=== PATIENT | male | born 1930 | race Caucasian/White ===

== ENCOUNTER 2016-10-19 12:31 | Inpatient (IN) | payer OTHER ==
--- NOTE | 2016-10-19 12:37 | PDOC ---
History of Present Illness - General Chief Complaint: SIRS, Suspected/Possible Stated Complaint: FEVER Time Seen by Provider: 10/19/16 12:36 History Source: Patient, Family, Old Records Exam Limitations: Dementia - History of Present Illness Initial Comments: 10/19/16 12:53 86-year-old male with a history of dementia, hypertension and coronary artery disease who is recently being treated for urinary tract infection since last presents the emergency department by EMS with shaking chills and fever at home. The patient's stated that he is also had generalized weakness and this morning he was unable to get himself up from the toilet. The patient saw his regular doctor last week and was treated for a UTI with Ciprohe has not missed any doses and was in his usual state of health until this morning. The patient's also notes that he appears agitated/altered mentally as compared to his baseline. Past History - Past Medical History Allergies/Adverse Reactions: Allergies Allergy/AdvReac Type Severity Reaction Status Date / Time No Known Allergies Allergy Verified 10/19/16 12:34 Home Medications: Ambulatory Orders Cholecalciferol (Vitamin D3) [Vitamin D-3] 1,000 unit PO DAILY 11/14/15 L.acidoph,Paracasei, B.lactis [Probiotic] 1 each PO DAILY 11/14/15 [place]-3 Fatty Acids [[place]-3] 1,000 mg PO DAILY 11/14/15 Alpha Lipoic Acid 600 mg PO DAILY capsule 05/12/16 Aspirin [Aspir 81] 81 mg PO DAILY 05/12/16 Atorvastatin Calcium 5 mg PO DAILY tablet 05/12/16 Metoprolol Succinate 25 mg PO DAILY 05/12/16 Dementia: Yes ([place]) HTN: Yes - Surgical History Cholecystectomy: Yes - Immunization History Immunization Up to Date: Yes - Psycho/Social/Smoking Cessation Hx Anxiety: No Suicidal Ideation: No Smoking History: Former smoker Have you smoked in the past 12 months: No If you are a former smoker, when did you quit?: 40 YEARS Hx Alcohol Use: Yes (DAILY) Drug/Substance Use Hx: No Hx Substance Use Treatment: No Review of Systems - Review of Systems Able to Perform ROS?: Yes Is the patient limited Swedish proficient: No Constitutional: Yes: Chills HEENTM: No: Symptoms Reported Respiratory: No: Symptoms reported Cardiac (ROS): No: Symptoms Reported ABD/GI: No: Symptoms Reported : Yes: See HPI Musculoskeletal: No: Symptoms Reported Integumentary: No: Symptoms Reported *Physical Exam - Physical Exam Comments: 10/19/16 12:55 GENERAL: Well developed, well nourished. Awake and alert. No acute distress. HEENT: Normocephalic, atraumatic. PERRLA, EOMI. No conjunctival pallor. Sclera are non- icteric. Moist mucous membranes. Oropharynx is clear. NECK: Supple. Full ROM. No JVD. No lymphadenopathy. CARDIOVASCULAR: Tachycardic, Regular rate and rhythm. No murmurs, rubs, or gallops. Distal pulses are 2+ and symmetric. PULMONARY: No evidence of respiratory distress. Lungs clear to auscultation bilaterally. No wheezing, rales or rhonchi. ABDOMINAL: Soft. Non-tender. Non-distended. No rebound or guarding. No organomegaly. Normoactive bowel sounds. MUSCULOSKELETAL Normal range of motion at all joints. No bony deformities or tenderness. No CVA tenderness. EXTREMITIES: No cyanosis. No clubbing. No edema. No calf tenderness. SKIN: Warm and dry. Normal capillary refill. No rashes. No jaundice. NEUROLOGICAL: Alert, awake but agitated. Cranial nerves 2-12 intact. Grossly non-focal exam. PSYCHIATRIC: Cooperative. Good eye contact. Appropriate mood and affect. ED Treatment Course - LABORATORY CBC & Chemistry Diagram: 10/19/16 12:35 10/19/16 12:35 Medical Decision Making - Medical Decision Making 10/19/16 12:56 86-year-old male with hypertension and dementia who presents to the emergency department with fever, chills and altered mental status; he is recently being treated for urinary tract infection with Cipro. Differential diagnosis includes but is not limited to: Sepsis, UTI, pneumonia, dehydration, electrolyte abnormality, toxic/metabolic derangement. Plan: 1. Mueller culture 2. Labs and urine analysis 3. IV fluids for hydration 4. Acetaminophen for fever 5. IV antibiotics 6. Admit 7. Observe and reevaluate 10/19/16 14:18 Addendum: The labs were reviewed and are noted in the EMR. The WBC is 15.1k and the lactate is 3.3. CXR shows atelectasis vs infiultrate at the left lung base and u/a has +LE and WBC's. I have discussed the case with the patient's PCP. The plan is to transfer the patient to [facility] for ICU admission. *DC/Admit/Observation/Transfer Diagnosis at time of Disposition: Sepsis, UTI (urinary tract infection) - Discharge Dispostion Disposition: TRANSFER ACUTE CARE/OTHER HOSP Condition at time of disposition: Good Admit: Yes - Referrals Referrals: Ralph Morley MD [Primary Care Provider] -
[2016-10-19] MEDS ORDERED: SODIUM CHLORIDE 2,000 ML IV STA (12:38)
[2016-10-19] MEDS ORDERED: VANCOMYCIN 1,000 MG in DEXTROSE 5%-WATER - 250 ML IVPB ONE (12:38)
[2016-10-19] MEDS ORDERED: PIPERACILLIN/TAZOB 3.375 GM/50 ML PRE-DOCKED IV ONE (12:38)
[2016-10-19] MEDS ORDERED: ACETAMINOPHEN 1000 MG/100 ML VIAL (NON FORMULARY) IVPB ONE (12:39)
[2016-10-19 12:44] VITALS: BMI 27.3
[2016-10-19] MEDS ORDERED: PIPERACILLIN/TAZOBACTAM 3.375 GM VIAL IVPB ONE (13:04)
[2016-10-19] MEDS ORDERED: VANCOMYCIN 1,000 MG VIAL (RESTRICTED TO ID ONLY) ONE (13:05)
[2016-10-19] MEDS ORDERED: ACETAMINOPHEN INJECTION 100 ML IVPB ONE (13:05)
[2016-10-19 13:06] LABS: URINE APPEARANCE Clear; URINE BILIRUBIN Negative (NEGATIVE); URINE BLOOD Trace-intact (NEGATIVE); URINE GLUCOSE (UA) Negative (NEGATIVE); URINE KETONE Negative (NEGATIVE); URINE NITRITE Negative (NEGATIVE); URINE PROTEIN Trace (NEGATIVE); URINE UROBILINOGEN 0.2 E.U/dl (0.2-1.0)
[2016-10-19 13:08] LABS: MCH 26.6 pg (25.7-33.7); MCHC 33.1 g/dl (32.0-35.9); MEAN CELL VOLUME 80.6 fl (80-96); MEAN PLT VOLUME 8.9 fl (7.5-11.1); PLATELET COUNT 337 K/MM3 (134-434); RDW 14.4 % (11.9-15.9); WHITE BLOOD COUNT 15.1 K/mm3 (4.0-10.0)
[2016-10-19 13:25] LABS: ALBUMIN 3.4 g/dl (3.5-5.0); BILIRUBIN,TOTAL 0.7 mg/dl (0.2-1.0); CALCIUM 9.2 mg/dl (8.4-10.2); CREATININE 1.5 mg/dl (0.6-1.3); MAGNESIUM 1.6 mg/dL (1.8-2.4); PHOSPHOROUS 2.7 mg/dl (2.5-4.6); TOT PROT 6.7 g/dl (6.4-8.3)
[2016-10-19 13:41] LABS: URINE COLOR YELLOW; URINE LEUK ESTERASE 1+ (NEGATIVE); URINE WBC 20-30 (3-5)
[2016-10-19 13:49] LABS: TROPONIN I (DFP) 0.03 ng/ml (0.03-0.50)
[2016-10-19] MEDS ORDERED: SODIUM CHLORIDE 1,000 ML IV STA (14:14)
--- NOTE | 2016-10-19 17:10 | HOSP ---
Physical Examination Vital Signs: Vital Signs Temperature 99.9 F H 10/19/16 16:37 Pulse Rate 119 H 10/19/16 16:37 Respiratory Rate 17 10/19/16 16:37 Blood Pressure 151/56 10/19/16 16:37 O2 Sat by Pulse Oximetry (%) 95 10/19/16 15:27 Labs: CBC, BMP 10/19/16 12:35 10/19/16 12:35 Hospitalist Encounter Assessment: pt was presented for admission due to sepsis. Pt was treated with IVF, vanc and zosyn in [place] ED. Is awaiting transfer from [place] ED to ICU at [facility]. As I am the designated code leader for today I cannot go to [place] to evaluated patient and no one else from [facility] is available to see pt before night staff arrives at 7pm, will order IVF and place ID consult for abx approval. On review of chart most recent vitals show stable blood pressure.
[2016-10-19] MEDS ORDERED: SODIUM CHLORIDE 1,000 ML IV SCH (17:15)
--- NOTE | 2016-10-19 17:59 | EKG ---
Test Reason : Blood Pressure : / mmHG Vent. Rate : 125 BPM Atrial Rate : 125 BPM P-R Int : 156 ms QRS Dur : 080 ms QT Int : 290 ms P-R-T Axes : 059 -07 119 degrees QTc Int : 418 ms SINUS TACHYCARDIA WITH PREMATURE SUPRAVENTRICULAR COMPLEXES AND WITH OCCASIONAL PREMATURE VENTRICULAR COMPLEXES NO PREVIOUS ECGS AVAILABLE Confirmed by MD DWYER MARJORY ([id number]) on 10/19/2016 5:59:06 PM Referred By: MAHENDRA FRAGOSO Confirmed By:TEJA DWYER MD
[2016-10-19] MEDS ORDERED: PIPERACILLIN/TAZOBACTAM 4.5 GM VIAL IVPB STA (19:07)
[2016-10-19] MEDS ORDERED: ACETAMINOPHEN 325 MG TABLET (FP) PO PRN (19:07)
[2016-10-19 20:18] LABS: ARTERIAL BLD GAS O2 SATURATION 95.6 % (90-98.9); ARTERIAL BLOOD GAS PO2 75.6 mmHg (68-100); ARTERIAL BLOOD GAS pH 7.45 (7.35-7.45)
[2016-10-19 20:19] LABS: ALLENS TEST POSITIVE; ART PUNCT SITE RIGHT RADIAL
[2016-10-19 20:20] LABS: LPM/O2% 21%; PT. ON O2? NO; TYPE OF O2 ROOM AIR
--- NOTE | 2016-10-19 20:27 | CONSULT ---
Consult Consult Specialty:: Pulm/CC - History of Present Illness History of Present Illness: Pt is an 86yr old man with PMHx of HTN, [place] s/p cardiac stent x2, dementia, urinary retention and current UTI. He presents to the [place] ER from home with CC of chills, subjective fever and AMS. Of note pt was being treated with cipro since 10/15 for UTI as an outpatient. In the ER pt's initial vitals signs were 124/67, HR 129, 93% o2 and 103.8 temp. WBC 15.1, BUN/Cr 26/1.5, Mag 1.6 + UA. Pt given IV Tylenol, Vanc/Zosyn and 2L NS, transferred to [facility] and admitted to the ICU for further management. Per report pt increasingly agitated and given haldol/ativan. Upon assessment pt is sedated. 92/69, HR irregular 100-120s , 94%. - History Source History Provided By: Medical Record Limitations to Obtaining History: Clinical Condition - Past Medical History Cardio/Vascular: Yes: HTN Renal/: Yes: BPH - Past Surgical History Past Surgical History: Yes: Cholecystectomy - Alcohol/Substance Use Hx Alcohol Use: Yes (DAILY) - Smoking History Smoking history: Former smoker Have you smoked in the past 12 months: No If you are a former smoker, when did you quit?: 40 YEARS Home Medications - Allergies Allergies/Adverse Reactions: Allergies Allergy/AdvReac Type Severity Reaction Status Date / Time No Known Allergies Allergy Verified 10/19/16 12:34 - Home Medications Home Medications: Ambulatory Orders Cholecalciferol (Vitamin D3) [Vitamin D-3] 1,000 unit PO DAILY 11/14/15 L.acidoph,Paracasei, B.lactis [Probiotic] 1 each PO DAILY 11/14/15 [place]-3 Fatty Acids [[place]-3] 1,000 mg PO DAILY 11/14/15 Alpha Lipoic Acid 600 mg PO DAILY capsule 05/12/16 Aspirin [Aspir 81] 81 mg PO DAILY 05/12/16 Atorvastatin Calcium 5 mg PO DAILY tablet 05/12/16 Metoprolol Succinate 25 mg PO DAILY 05/12/16 Family Disease History - Family Disease History Family History: Unable to Obtain (pt sedated) Review of Systems Unable to obtain ROS, reason: LIDIA Physical Exam Vital Signs: Vital Signs Period Temp Pulse Resp BP Sys/Yun Pulse Ox Last 24 Hr 99.9 F-103.8 F 103-129 17-20 95-151/56-69 93-96 Intake & Output 10/16/16 10/17/16 10/18/16 10/19/16 23:59 23:59 23:59 23:59 Intake Total 4200 Balance 4200 Weight 180 lb Constitutional: Yes: Well Nourished Eyes: Yes: Other (pupils miotic but reactive to light. left iris multicolored) HENT: Yes: Atraumatic Cardiovascular: Yes: Tachycardia (100-120s), Pulse Irregular Respiratory: Yes: Other (limited exam due to endy/sedation, no adventitious breath sounds appreciated anteriorly) Gastrointestinal: Yes: Normal Bowel Sounds, Soft, Abdomen, Obese, Tenderness ( diffuse based on wincing) ...Rectal Exam: Yes: Deferred Renal/: Yes: Massey Present (yellow output) Edema: No Peripheral Pulses WNL: (+1 left pedal, weak rt pedal) Integumentary: Yes: Other (RLE dressing c/d/i) Neurological: Yes: Other (sedated) Labs: Abnormal Lab Results 10/19/16 10/19/16 10/19/16 12:35 12:35 12:35 WBC 15.1 H D Neutrophils % 88.0 H D Lymphocytes % 1.0 L D Monocytes % 1.0 L D ABG pCO2 at Pt Temp ABG HCO3 ABG Base Excess Chloride 108 H Carbon Dioxide 20 L D BUN 26 H Creatinine 1.5 H Random Glucose 124 H D Lactic Acid 3.391 H* Magnesium 1.6 L Albumin 3.4 L Ur Leukocyte Esterase 10/19/16 10/19/16 13:00 19:07 WBC Neutrophils % Lymphocytes % Monocytes % ABG pCO2 at Pt Temp 22.2 L ABG HCO3 15.0 L ABG Base Excess -7.0 L Chloride Carbon Dioxide BUN Creatinine Random Glucose Lactic Acid Magnesium Albumin Ur Leukocyte Esterase 1+ H D Assessment/Plan Pt is an 86yr old man with PMHx of HTN, CAD, dementia and current UTI. Now in the ICU for urosepsis with associated urinary retention complicated by phimosis. Pulm: -O2 support prn for sat >94% -Nebulizers prn -Incentive spirometer as tolerated ID: -f/u cultures -Consult -Ceftriaxone started -f/u lactic acid Renal: -Urology following -Replete electrolytes prn -f/u renal ultrasound -f/u urine electrolytes/creatinine Cardiac -f/u enzymes -Rate control -Statin -asa/plavix per primary/cards Neuro -Pain management Prophylactic -DVT
--- NOTE | 2016-10-19 20:30 | CON.GU ---
Consult - History of Present Illness History of Present Illness: asked to see this 86 yo male emergently in consultation. Transferred from [place] with sepsis and urinary retention. Arce could not be placed. No prior urologic history per chart - Past Medical History Cardio/Vascular: Yes: HTN Renal/: Yes: BPH - Past Surgical History Past Surgical History: Yes: Cholecystectomy - Alcohol/Substance Use Hx Alcohol Use: Yes (DAILY) - Smoking History Smoking history: Former smoker Have you smoked in the past 12 months: No If you are a former smoker, when did you quit?: 40 YEARS Home Medications - Allergies Allergies/Adverse Reactions: Allergies Allergy/AdvReac Type Severity Reaction Status Date / Time No Known Allergies Allergy Verified 10/19/16 12:34 - Home Medications Home Medications: Ambulatory Orders Cholecalciferol (Vitamin D3) [Vitamin D-3] 1,000 unit PO DAILY 11/14/15 L.acidoph,Paracasei, B.lactis [Probiotic] 1 each PO DAILY 11/14/15 [place]-3 Fatty Acids [[place]-3] 1,000 mg PO DAILY 11/14/15 Alpha Lipoic Acid 600 mg PO DAILY capsule 05/12/16 Aspirin [Aspir 81] 81 mg PO DAILY 05/12/16 Atorvastatin Calcium 5 mg PO DAILY tablet 05/12/16 Metoprolol Succinate 25 mg PO DAILY 05/12/16 Physical Exam- Vital Signs: Vital Signs Temperature 99.9 F H 10/19/16 16:37 Pulse Rate 119 H 10/19/16 16:37 Respiratory Rate 17 10/19/16 16:37 Blood Pressure 151/56 10/19/16 16:37 O2 Sat by Pulse Oximetry (%) 95 10/19/16 15:27 Renal/: Yes: Bladder Distention (tight phimosis) Problem List - Problems (1) Urinary retention Assessment/Plan: Phimosis stretched at bedside with clamp, subsequently 14 fr arce inserted, large amount of grossly clear urine retrieved. cont arce to SD until pt medically stable. will need formal circumcision electively Code(s): R33.9 - RETENTION OF URINE, UNSPECIFIED
[2016-10-19] MEDS ORDERED: LORAZEPAM CARPU-JECT 2 MG/ML DISP.SYRIN IVPUSH ONE ×2 (20:35→22:51)
[2016-10-19] MEDS ORDERED: HALOPERIDOL LACTATE 5 MG/ML IM ONE ×2 (20:35→22:52)
[2016-10-19] MEDS ORDERED: PIPERACILLIN/TAZOB 3.375 GM/50 ML PRE-DOCKED IVPB SCH (21:00)
--- NOTE | 2016-10-19 21:16 | PN ---
<Galo Barnett - Last Filed: 10/19/16 21:15> Teaching Attending Note Name of Resident: Isela Meade ATTENDING PHYSICIAN STATEMENT I saw and evaluated the patient. I reviewed the resident's note and discussed the case with the resident. I agree with the resident's findings and plan as documented. SUBJECTIVE: OBJECTIVE: ASSESSMENT AND PLAN: <LyssaXavier - Last Filed: 10/19/16 21:21> Teaching Attending Note ATTENDING PHYSICIAN STATEMENT I saw and evaluated the patient. I reviewed the resident's note and discussed the case with the resident. I agree with the resident's findings and plan as documented. SUBJECTIVE: Patient is an 86-year-old male, accompanied by family, with a past medical history of dementia, hypertension, PA (s/p 2 stents, on DAPT) who presented to the emergency department by EMS for further evaluation of fevers, chills, rigors , shortness of breath, and AMS since this morning. Yesterday evening patient was at baseline and had dinner with grandson. This morning patient was noted to be having shakes and chills and fever was measured to be Tmax 103F. Patient not able to communicate reliably regarding symptoms. Per family, patient did not exhibit any signs of infection no runny nose, cough, sputum, foul urine, or rashes. Patient does have history of urinary retention and a prior admission for urosepsis. The patient saw his regular doctor , received an ECHO, and was treated for a UTI with Ciprohe has not missed any doses and was in his usual state of health until this morning. At baseline patient is calm, recognizes close family, and is able to go to the bathroom and shower on his own. Family reported associated generalized weakness and noted the patient was unable to get up without assistance before patients called 911. CARDIO: Dr. Jessie Ward PCP: Dr. Ralph Morley OBJECTIVE: Vital Signs: Last Vital Signs Temp Pulse Resp BP Pulse Ox 99.9 F H 119 H 17 151/56 95 10/19/16 16:37 10/19/16 16:37 10/19/16 16:37 10/19/16 16:37 10/19/16 15:27 GENERAL: (+) Mildly sedated after receiving Haldol and Ativan for agg. no acute distress HEENT: Atraumatic. PERRLA, EOMI. Moist mucosa. No JVD LUNGS: No distress, speaks full sentences, clear to auscultation bilaterally HEART: Regular rate and rhythm, normal S1 and S2, no murmurs, rubs or gallops, peripheral pulses normal and equal bilaterally. ABDOMEN: Soft, nontender, normoactive bowel sounds. No guarding, no rebound. No masses EXTREMITIES: Normal inspection, Normal range of motion, no edema. No clubbing or cyanosis. NEUROLOGICAL: (+) Oriented to self not place or time. Pleasant. Cranial nerves II through XII grossly intact. Normal speech, no focal sensorimotor deficits SKIN: Warm, Dry, normal turgor, no rashes or lesions noted. Labs: CBCD WBC 15.1 K/mm3 (4.0-10.0) H D 10/19/16 12:35 RBC 4.96 M/mm3 (4.00-5.60) 10/19/16 12:35 Hgb 13.2 GM/dl (11.7-16.9) 10/19/16 12:35 Hct 39.9 % (35.4-49) 10/19/16 12:35 MCV 80.6 fl (80-96) 10/19/16 12:35 MCHC 33.1 g/dl (32.0-35.9) 10/19/16 12:35 RDW 14.4 % (11.9-15.9) 10/19/16 12:35 Plt Count 337 K/MM3 (134-434) 10/19/16 12:35 MPV 8.9 fl (7.5-11.1) 10/19/16 12:35 CMP Sodium 136 mmol/L (136-145) 10/19/16 12:35 Potassium 3.8 mmol/L (3.5-5.1) 10/19/16 12:35 Chloride 108 mmol/L (98-107) H 10/19/16 12:35 Carbon Dioxide 20 mmol/L (22-28) L D 10/19/16 12:35 Anion Gap 8 (8-16) 10/19/16 12:35 BUN 26 mg/dl (7-18) H 10/19/16 12:35 Creatinine 1.5 mg/dl (0.6-1.3) H 10/19/16 12:35 Creat Clearance w eGFR 44.48 (>60) 10/19/16 12:35 Calcium 9.2 mg/dl (8.4-10.2) 10/19/16 12:35 Total Bilirubin 0.7 mg/dl (0.2-1.0) D 10/19/16 12:35 AST 38 U/L (10-42) D 10/19/16 12:35 ALT 16 U/L (10-40) 10/19/16 12:35 Alkaline Phosphatase 77 U/L (32-92) 10/19/16 12:35 Total Protein 6.7 g/dl (6.4-8.3) 10/19/16 12:35 Albumin 3.4 g/dl (3.5-5.0) L 10/19/16 12:35 Imaging: Chest X-ray Impression: Slightly enlarged heart although study is AP. Possible small effusion bilaterally. ASSESSMENT AND PLAN: Patient is an 86-year-old male, accompanied by family, with a past medical history of dementia, hypertension, PA (s/p 2 stents, on DAPT) who presented to the emergency department with fevers found to have white count of 15, lactate of 3.391, urinary retention, urinalysis with pyuria. Presentations is consisted with sepsis secondary to UTI. He has had a arce placed by urology. He was given vancomycin, zosyn in ED. Will cont zosyn. Follow up blood and urine cultures. Will give IVF. Admit to ICU. Documentation prepared by Xavier Omalley, acting as medical educator for Dr. Galo Womack MD.
[2016-10-19 21:35] LABS: BASOPHIL 0.3 % (0-2.0); MCH 25.9 pg (25.7-33.7); MCHC 31.8 g/dl (32.0-35.9); MEAN CELL VOLUME 81.5 fl (80-96); MEAN PLT VOLUME 8.4 fl (7.5-11.1); PLATELET COUNT 284 K/MM3 (134-434); RDW 15.1 % (11.9-15.9); WHITE BLOOD COUNT 23.4 K/mm3 (4.0-10.0)
[2016-10-19 21:52] LABS: INR 1.23 (0.82-1.09); PROTHROMBIN TIME (PATIENT) 13.6 SEC (9.98-11.88)
[2016-10-19] MEDS: MUPIROCIN 2% TOPICAL OINTMENT FOR DECOLONIZATION NS SCH (21:55)
[2016-10-19] MEDS: HEPARIN NA (PORCINE) 5,000 UNITS/ML 1ML VIAL SQ SCH (21:55)
[2016-10-19] MEDS ORDERED: CEFTRIAXONE 50 ML IVPB SCH (22:00)
[2016-10-19] MEDS ORDERED: CHLORHEXIDINE GLUCONATE 4% CLEANSER FOR DECOLONIZATION TP SCH (22:00)
[2016-10-19 22:09] LABS: MAGNESIUM 1.6 mg/dL (1.8-2.4); PHOSPHOROUS 2.6 mg/dL (2.5-4.9)
[2016-10-19 22:13] LABS: ALBUMIN 2.9 g/dl (3.4-5.0); BILIRUBIN,TOTAL 0.4 mg/dL (0.2-1.0); CALCIUM 8.3 mg/dL (8.5-10.1); CREATININE 1.5 mg/dL (0.7-1.3)
[2016-10-19 22:27] LABS: TROPONIN I 0.43 ng/ml (0.00-0.05)
[2016-10-19] MEDS ORDERED: MAGNESIUM SULF 50% (8.12 MEQ/2 ML-1 GM VIAL) IVPB ONE (22:46)
[2016-10-19] MEDS ORDERED: morphine CARPU-JECT 2 MG/1 ML DISP.SYRIN IVPUSH PRN (22:58)
--- NOTE | 2016-10-19 23:45 | HP ---
CHIEF COMPLAINT: Fever with chills and rigors PCP: Dr Peyman Ward HISTORY OF PRESENT ILLNESS: History obtained from patients and grand daughter Patient is a 86-year-old male was sent from [facility] ED for an admission in the ICU with the diagnosis of Urosepsis. As per the patients grand daughter, patient had a fever of 103F x 1 day associated with chills and rigors. Patient was more confused and agitated than his baseline. Hence he was brought to [facility] ED. Patient was recently seen by his PCP and was diagnosed to have Urinary tract Infection and was taking Ciprofloxacin x 3 days. Patients says that he was compliant with the medication. states that he has been having difficulty in urination lately, has to strain to urinate and normally takes around 20minutes and has to sit in the toilet to urinate. 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 Bladder Ultrasound at bed side showed 800mls of urine. Dr. Mccloud was informed and he put the arce at bed side in the ICU. Grand daughter mentions that patient had an MS last year and was treated in [facility]. He got very agitated overnight during that admission, requiring 3 security and Haloperidol IM. Patient got more delirious with haloperidol and had to be admitted in the hospital for a week due to delirium. Patient lives with his . At his baseline, he does daily activities on his own, requires help on/off but needs 24 hours supervision. Gets confused and agitated when his family members are not around. Bowel habit normal. Sleep normal. Appetite decreased since a week. Patient recently had an echo as outpatient in [facility] but cannot find the report. In the ICU, patient was very agitated, confused, not following commands, passed stool in the bed and on the floor. Had to give 2mg IV Ativan and 5 mg of Haloperidol to calm him down. ER course was notable for: (1) Fever 101 F; Tachycardic 112 bpm; Leukocytosis 15.1; creatinine 1.5/GFR 44.48; Magnesium 1.6, lactic acid 3.3 (2) EKG: unchanged from prior study (3) IV NS 2L; IV Tylenol; IV Vancomycin; IV Zosyn Recent Travel: None PAST MEDICAL HISTORY: Dementia, Hypertension and coronary artery disease; MS ( one year ago s/p 2 stents); BPH; s/p cholecystectomy PAST SURGICAL HISTORY: As mentioned above Social History: Smoking: Quit 43 years ago Alcohol: Occasional Drugs: Denies Family History: Unknown Allergies No Known Allergies Allergy (Verified 10/19/16 12:34) HOME MEDICATIONS: Home Medications Medication Instructions Recorded Cholecalciferol (Vitamin D3) 1,000 unit PO DAILY 11/14/15 [Vitamin D-3] L.acidoph,Paracasei, B.lactis 1 each PO DAILY 11/14/15 [Probiotic] [place]-3 Fatty Acids [[place]-3] 1,000 mg PO DAILY 11/14/15 Alpha Lipoic Acid 600 mg PO DAILY capsule 05/12/16 Aspirin [Aspir 81] 81 mg PO DAILY 05/12/16 Atorvastatin Calcium 5 mg PO DAILY tablet 05/12/16 Metoprolol Succinate 25 mg PO DAILY 05/12/16 REVIEW OF SYSTEMS CONSTITUTIONAL: Present: Fever, chills, rigors Absent: Diaphoresis, generalized weakness, malaise, loss of appetite, weight change HEENT: Absent: rhinorrhea, nasal congestion, throat pain, throat swelling, difficulty swallowing, mouth swelling, ear pain, eye pain, visual changes CARDIOVASCULAR: Absent: chest pain, syncope, palpitations, irregular heart rate, lightheadedness , peripheral edema RESPIRATORY: Absent: cough, shortness of breath, dyspnea with exertion, orthopnea, wheezing, stridor, hemoptysis GASTROINTESTINAL: Absent: abdominal pain, abdominal distension, nausea, vomiting, diarrhea, constipation, melena, hematochezia GENITOURINARY: Present: hesitancy Absent: dysuria, frequency, urgency, , hematuria, flank pain, genital pain MUSCULOSKELETAL: Absent: myalgia, arthralgia, joint swelling, back pain, neck pain SKIN: Absent: rash, itching, pallor HEMATOLOGIC/IMMUNOLOGIC: Absent: easy bleeding, easy bruising, lymphadenopathy, frequent infections ENDOCRINE: Absent: unexplained weight gain, unexplained weight loss, heat intolerance, cold intolerance NEUROLOGIC: Present: Agitated, confused Absent: headache, focal weakness or paresthesias, dizziness, unsteady gait, seizure, mental status changes, bladder or bowel incontinence PSYCHIATRIC: Absent: anxiety, depression, suicidal or homicidal ideation, hallucinations. PHYSICAL EXAMINATION GENERAL: Elderly male, confused, agitated, Awake, alert, in no acute distress. HEAD: Normal with no signs of trauma. EYES: EOM intact, no pallor or icterus EARS, NOSE, THROAT: Ears normal. Moist mucous membranes. NECK: Supple LUNGS: Breath sounds equal, clear to auscultation bilaterally. No wheezes, and no crackles. No accessory muscle use. HEART: Regular rate and rhythm, normal S1 and S2 without murmur, rub or gallop. ABDOMEN: Soft, nontender, not distended, normoactive bowel sounds, no guarding, no rebound, no masses. No hepatomegaly or splenomegaly. MUSCULOSKELETAL: Normal range of motion at all joints. No bony deformities or tenderness. No CVA tenderness. UPPER EXTREMITIES: 2+ pulses, warm, well-perfused. No cyanosis. No clubbing. No peripheral edema. LOWER EXTREMITIES: 2+ pulses, warm, well-perfused. No calf tenderness. No peripheral edema. NEUROLOGICAL: Cranial nerves II-XII intact. Normal speech. Normal gait, confused, agitated, not following commands Genitalis: small urethral opening, arce catheter in place PSYCHIATRIC: Uncooperative. Poor eye contact. SKIN: Warm, dry, normal turgor, no rashes or lesions noted, normal capillary refill. Laboratory Results - last 24 hr 10/19/16 10/19/16 10/19/16 19:07 21:15 21:15 WBC 23.4 H D RBC 4.42 Hgb 11.5 L Hct 36.0 MCV 81.5 MCHC 31.8 L RDW 15.1 D Plt Count 284 D MPV 8.4 D Neutrophils % 94.0 H D Lymphocytes % 2.1 L D Monocytes % 3.6 L Eosinophils % 0.0 D Basophils % 0.3 INR 1.23 H PTT (Actin FS) 31.0 Puncture Site Right radial ABG pH 7.45 ABG pCO2 at Pt Temp 22.2 L ABG pO2 at Pt Temp 75.6 ABG HCO3 15.0 L ABG O2 Sat (Measured) 95.6 ABG O2 Content 17.1 ABG Base Excess -7.0 L Jonh Test Positive O2 Delivery Device Room air Oxygen Flow Rate 21% PEEP 0.0 Sodium Potassium Chloride Carbon Dioxide Anion Gap BUN Creatinine Creat Clearance w eGFR Random Glucose Lactic Acid Calcium Phosphorus Magnesium Total Bilirubin AST ALT Alkaline Phosphatase Creatine Kinase Creatine Kinase Index CK-MB (CK-2) CK-MB (CK-2) Rel Index Troponin I Total Protein Albumin 10/19/16 10/19/16 10/19/16 21:15 21:15 21:15 WBC RBC Hgb Hct MCV MCHC RDW Plt Count MPV Neutrophils % Lymphocytes % Monocytes % Eosinophils % Basophils % INR PTT (Actin FS) Puncture Site ABG pH ABG pCO2 at Pt Temp ABG pO2 at Pt Temp ABG HCO3 ABG O2 Sat (Measured) ABG O2 Content ABG Base Excess Jonh Test O2 Delivery Device Oxygen Flow Rate PEEP Sodium 145 Potassium 3.6 Chloride 113 H Carbon Dioxide 22 Anion Gap 10 BUN 21 H D Creatinine 1.5 H D Creat Clearance w eGFR 44.48 Random Glucose 108 H Lactic Acid 2.556 H* Calcium 8.3 L Phosphorus Magnesium Total Bilirubin 0.4 AST 22 D ALT 39 D Alkaline Phosphatase 72 D Creatine Kinase 1319 H Creatine Kinase Index 0.7 CK-MB (CK-2) 8.599 H CK-MB (CK-2) Rel Index Troponin I 0.43 H Total Protein 6.0 L Albumin 2.9 L D 10/19/16 10/19/16 21:15 21:15 WBC RBC Hgb Hct MCV MCHC RDW Plt Count MPV Neutrophils % Lymphocytes % Monocytes % Eosinophils % Basophils % INR PTT (Actin FS) Puncture Site ABG pH ABG pCO2 at Pt Temp ABG pO2 at Pt Temp ABG HCO3 ABG O2 Sat (Measured) ABG O2 Content ABG Base Excess Jonh Test O2 Delivery Device Oxygen Flow Rate PEEP Sodium Potassium Chloride Carbon Dioxide Anion Gap BUN Creatinine Creat Clearance w eGFR Random Glucose Lactic Acid Calcium Phosphorus 2.6 Magnesium 1.6 L Total Bilirubin AST ALT Alkaline Phosphatase Creatine Kinase Creatine Kinase Index CK-MB (CK-2) CK-MB (CK-2) Rel Index Cancelled Troponin I Total Protein Albumin ASSESSMENT/PLAN: Patient is a 86-year-old male with past medical history of Dementia, Hypertension and coronary artery disease; MS (one year ago s/p 2 stents); BPH; s /p cholecystectomy was sent from [facility] ([facility] ED for an admission in the ICU with the diagnosis of Urosepsis. # Sepsis secondary to UTI Patient presented with Fever (103F) associated with chills and rigors. Recently diagnosed with UTI, on ciprofloxacin x 3 days, compliant with medication On arrival, patient had Fever 101 F; Tachycardic 112 bpm; Leukocytosis 15.1; Lactic acid 3.3; Magnesium 1.6 EKG: unchanged from prior study In the ED, patient received IV NS 2L; IV Tylenol; IV Vancomycin; IV Zosyn Admitted in the ICU Trend lactic acid 3.3---->1.9-----> 2.5----> pending IV NS @ 100mls/hr IV Ceftriaxone to be continued ID consult placed. Blood cultures/Urine cultures pending Tylenol PRN Monitor vitals # Rising Troponins- r/o ACS H/o CAD s/p 2 stents Troponin 0.03-----> 0.43---->Pending Aspirin 325mg PO stat given Continue Plavix and statin Stat EKG: no new changes Repeat EKG tomorrow Cardiology consult placed # RASHEL likely from hypovolemia creatinine 1.5/GFR 44.48; (Baseline creatinine 1.1 in 2013) IV Hydration Avoid nephrotoxic drugs # Hypertension Patient in NPO hypotensive initially on arrival so Metoprolol on hold # Confused and agitated Haloperidol/ Lorazepam given # Dementia-severe Continue Rivastigmine Aspiration precaution Fall precaution # FEN IV NS @ 100mls/hr Electrolytes to be repeated NPO # Prophylaxis For DVT- On Heparin sq For GI- Not indicated # Code Status- Full Code # Dispo: Duration of stay unknown. Admitted in the ICU. Illness, Investigation and plan of care explained to the patients and grand daughter. They verbalized understanding. Case seen and discussed with Dr. Barnett. Visit type - Emergency Visit Emergency Visit: Yes ED Registration Date: 10/19/16 Care time: The patient presented to the Emergency Department on the above date and was hospitalized for further evaluation of their emergent condition. - New Patient This patient is new to me today: Yes Date on this admission: 10/19/16 - Critical Care Critical Care patient: No
[2016-10-20] MEDS ORDERED: ASPIRIN 325 MG ENTERIC COATED TABLET (FP) PO ONE (00:17)
[2016-10-20] MEDS ORDERED: MAGNESIUM SULF 50% (8.12 MEQ/2 ML-1 GM VIAL) IVPB ONE (01:15)
[2016-10-20] MEDS ORDERED: DIGOXIN 0.5 MG/2 ML AMPUL ONE (02:07)
[2016-10-20] MEDS ORDERED: VASOPRESSIN 20 UNITS/ML VIAL IV ONE (02:10)
[2016-10-20] MEDS: HEPARIN NA (PORCINE) 5,000 UNITS/ML 1ML VIAL SQ SCH (06:00)
[2016-10-20 06:15] LABS: BASOPHIL 0.3 % (0-2.0); MCH 26.1 pg (25.7-33.7); MCHC 32.3 g/dl (32.0-35.9); NEUTROPHILS 90.4 % (42.8-82.8); PLATELET COUNT 254 K/MM3 (134-434); RDW 15.2 % (11.9-15.9); WHITE BLOOD COUNT 16.8 K/mm3 (4.0-10.0)
[2016-10-20 06:29] LABS: INR 1.37 (0.82-1.09); PROTHROMBIN TIME (PATIENT) 15.2 SEC (9.98-11.88)
[2016-10-20 06:31] LABS: ACTIVATED PTT 27.2 SECONDS (26.9-34.4)
[2016-10-20 06:55] LABS: ALBUMIN 2.7 g/dl (3.4-5.0); BILIRUBIN,TOTAL 0.3 mg/dL (0.2-1.0); CALCIUM 8.2 mg/dL (8.5-10.1); CREATININE 1.2 mg/dL (0.7-1.3); MAGNESIUM 1.9 mg/dL (1.8-2.4); PHOSPHOROUS 2.6 mg/dL (2.5-4.9); TOT PROT 5.7 g/dl (6.4-8.2)
[2016-10-20] MEDS ORDERED: PT OWN MED DRAWER 7, Y5N ONE ×2 (09:11→20:20)
[2016-10-20] MEDS: MUPIROCIN 2% TOPICAL OINTMENT FOR DECOLONIZATION NS SCH (09:36)
[2016-10-20] MEDS ORDERED: PATIENT'S OWN MEDICATION (NON-FORMULARY) (L.Acidoph,Paracasei, B.Lactis [Probiotic] 1 EACH PO SCH (10:00)
[2016-10-20] MEDS ORDERED: CHOLECALCIFEROL (VITAMIN D3) 1,000 UNIT TABLET (FP) PO SCH (10:00)
[2016-10-20] MEDS ORDERED: CLOPIDOGREL BISULFATE 75 MG TABLET (FP) PO SCH (10:00)
[2016-10-20] MEDS ORDERED: RIVASTIGMINE 13.3 MG/24 HR TD SCH (10:00)
[2016-10-20] MEDS ORDERED: PATIENT'S OWN MEDICATION (NON-FORMULARY) (Omega-3 Fatty Acids [Omega-3] 1,000 MG) PO SCH (10:00)
[2016-10-20] MEDS ORDERED: METOPROLOL SUCCINATE 25 MG TAB.SR.24H (FP) PO SCH (10:00)
[2016-10-20] MEDS ORDERED: ASPIRIN COATED 81 MG TABLET.EC PO SCH (10:00)
[2016-10-20] MEDS ORDERED: ALPHA LIPOIC ACID 600 MG PO SCH (10:00)
[2016-10-20 10:20] LABS: TROPONIN I 1.02 ng/ml (0.00-0.05)
--- NOTE | 2016-10-20 11:12 | CON.CARD ---
Cardiology Consult (text) - Consultation Consultation Note: CC: sepsis 86 yo with h/o CAD s/p NSTEMI and TANNER 10/2015, HTN, bph, alzheimer's who presents with sepsis Recent uti. [place] unwell for the past week, but acutely unwell on day of presentation --> tachycardia, sob, agitation, fever. Here noted to have urinary retention and phimosis, arce placed. + sundowning and agitation last night. + f/c/s. No cp, orthopnea, PND, LE edema, ALVAREZ, claudication, bleeding No n/v/d, h/a, rashes, weight change, cough, congestion. PMHx: per hpi Psurg hx: cholecystectomy Family hx: no cardiac disease Social hx: former smoker, no etoh or illicits Ros: Per hpi Ambulatory Orders Cholecalciferol (Vitamin D3) [Vitamin D-3] 1,000 unit PO DAILY 11/14/15 L.acidoph,Paracasei, B.lactis [Probiotic] 1 each PO DAILY 11/14/15 [place]-3 Fatty Acids [[place]-3] 1,000 mg PO DAILY 11/14/15 Alpha Lipoic Acid 600 mg PO DAILY capsule 05/12/16 Aspirin [Aspir 81] 81 mg PO DAILY 05/12/16 Atorvastatin Calcium 5 mg PO DAILY tablet 05/12/16 Metoprolol Succinate 25 mg PO DAILY 05/12/16 Current Medications Acetaminophen (Tylenol -) 650 mg PO Q4H PRN PRN Reason: FEVER OR PAIN Aspirin (Ecotrin -) 81 mg PO DAILY [facility] Last Admin: 10/20/16 09:38 Dose: 81 mg Atorvastatin Calcium (Lipitor -) 5 mg PO [facility] Chlorhexidine Gluconate (Hibiclens For Decolonization -) 1 applic TP HS [facility] Last Admin: 10/19/16 22:40 Dose: 1 applic Cholecalciferol (Vitamin D3 -) 1,000 unit PO DAILY [facility] Last Admin: 10/20/16 09:35 Dose: 1,000 unit Clopidogrel Bisulfate (Plavix -) 75 mg PO DAILY [facility] Last Admin: 10/20/16 09:36 Dose: 75 mg Heparin Sodium (Porcine) (Heparin -) 5,000 unit SQ TID [facility] Last Admin: 10/20/16 06:00 Dose: 5,000 unit Sodium Chloride (Normal Saline -) 1,000 mls @ 100 mls/hr IV ASDIR [facility] Last Admin: 10/19/16 17:26 Dose: 100 mls/hr Ceftriaxone Sodium (Rocephin 1gm Ivpb (Pre-Docked)) 50 mls @ 100 mls/hr IVPB DAILY@2200 [facility] Last Admin: 10/19/16 21:57 Dose: 100 mls/hr Metoprolol Succinate (Toprol Xl -) 25 mg PO DAILY [facility] Last Admin: 10/20/16 09:35 Dose: 25 mg Morphine Sulfate (Morphine Injection -) 1 mg IVPUSH Q4H PRN PRN Reason: PAIN Stop: 10/20/16 22:57 Mupirocin (Bactroban Ointment (For Decolonization) -) 1 applic NS BID [facility] Stop: 10/24/16 21:59 Last Admin: 10/20/16 09:36 Dose: 1 applic Non-Formulary Medication (Alpha Lipoic Acid [Alpha Lipoic Acid]) 600 mg PO DAILY [facility] Non-Formulary Medication (L.Acidoph,Paracasei, B.Lactis [Probiotic]) 1 each PO DAILY [facility] Non-Formulary Medication ([place]-3 Fatty Acids [[place]-3]) 1,000 mg PO DAILY [facility] Non-Formulary Medication (Rivastigmine [Exelon]) 13.3 mg TD DAILY [facility] Vital Signs - 24 hr 10/19/16 10/19/16 10/19/16 12:32 12:45 13:03 Temperature 103.8 F H Pulse Rate 129 H 129 H Pulse Rate [ Left Radial] Respiratory 20 Rate Blood Pressure 124/67 124/67 Blood Pressure [Right Arm] O2 Sat by Pulse 93 L 93 L Oximetry (%) 10/19/16 10/19/16 10/19/16 13:57 14:17 14:45 Temperature 101.1 F H Pulse Rate Pulse Rate [ 121 H 112 H Left Radial] Respiratory 17 18 19 Rate Blood Pressure Blood Pressure 95/66 110/63 120/69 [Right Arm] O2 Sat by Pulse 96 96 95 Oximetry (%) 10/19/16 10/19/16 10/19/16 15:27 16:37 19:07 Temperature 101.1 F H 99.9 F H 98.1 F Pulse Rate 119 H Pulse Rate [ 103 H 119 H Left Radial] Respiratory 19 17 28 H Rate Blood Pressure 165/91 Blood Pressure 121/61 151/56 [Right Arm] O2 Sat by Pulse 95 95 Oximetry (%) 10/19/16 10/20/16 10/20/16 21:00 00:00 02:00 Temperature 97.6 F Pulse Rate 64 94 H Pulse Rate [ Left Radial] Respiratory 25 H 24 27 H Rate Blood Pressure 143/66 130/52 Blood Pressure [Right Arm] O2 Sat by Pulse 97 Oximetry (%) 10/20/16 10/20/16 10/20/16 04:00 06:00 08:00 Temperature 97.3 F L Pulse Rate 112 H 108 H 90 Pulse Rate [ Left Radial] Respiratory 28 H 28 H 24 Rate Blood Pressure 123/70 138/50 117/55 Blood Pressure [Right Arm] O2 Sat by Pulse Oximetry (%) 10/20/16 09:00 Temperature Pulse Rate Pulse Rate [ Left Radial] Respiratory Rate Blood Pressure Blood Pressure [Right Arm] O2 Sat by Pulse 97 Oximetry (%) Intake & Output 10/18/16 10/19/16 10/20/16 10/21/16 07:59 07:59 07:59 07:59 Intake Total 4200 950 Output Total 900 Balance 4200 50 Weight 180 lb 169 lb 12.095 oz NAD, calm JVD flat, neck supple RRR nl s1, s2 no m/r/g CTAB, nl eff + bs soft nt nd ext without edema clubbing cyanosis + dp/pt aaox1 CBC, BMP 10/20/16 05:05 10/20/16 06:00 Laboratory Tests 10/19/16 10/19/16 10/19/16 12:35 12:35 12:35 Band Neutrophils 9.0 D INR ABG pH ABG pCO2 at Pt Temp ABG pO2 at Pt Temp ABG HCO3 ABG O2 Sat (Measured) Creatinine 1.5 H Lactic Acid 3.391 H* Magnesium Total Bilirubin AST ALT Alkaline Phosphatase Creatine Kinase Creatine Kinase Index CK-MB (CK-2) Troponin I Albumin 10/19/16 10/19/16 10/19/16 12:35 15:58 19:07 Band Neutrophils INR ABG pH 7.45 ABG pCO2 at Pt Temp 22.2 L ABG pO2 at Pt Temp 75.6 ABG HCO3 15.0 L ABG O2 Sat (Measured) 95.6 Creatinine Lactic Acid 1.963 Magnesium Total Bilirubin AST ALT Alkaline Phosphatase Creatine Kinase 87 Creatine Kinase Index CK-MB (CK-2) Troponin I 0.03 D Albumin 10/19/16 10/19/16 10/20/16 21:15 21:15 05:05 Band Neutrophils INR 1.37 H ABG pH ABG pCO2 at Pt Temp ABG pO2 at Pt Temp ABG HCO3 ABG O2 Sat (Measured) Creatinine Lactic Acid 2.556 H* Magnesium Total Bilirubin AST ALT Alkaline Phosphatase Creatine Kinase 1319 H Creatine Kinase Index CK-MB (CK-2) 8.599 H Troponin I 0.43 H Albumin 10/20/16 10/20/16 10/20/16 05:05 06:00 08:10 Band Neutrophils INR ABG pH ABG pCO2 at Pt Temp ABG pO2 at Pt Temp ABG HCO3 ABG O2 Sat (Measured) Creatinine Lactic Acid 0.704 Magnesium 1.9 Total Bilirubin 0.3 D AST 48 H D ALT 21 D Alkaline Phosphatase 70 Creatine Kinase 1100 H Creatine Kinase Index 0.5 CK-MB (CK-2) 5.572 H Troponin I 1.02 H* D Albumin 2.7 L Tele: Frequent PVC's, brief occasional NSVT EKG 1: sinus tach 125 bpm. with pvc. anterolateral twi and std. EKG 2: Sinus tach with pvc pac. subtle ST sagging in anterolateral leads. No acute ischemic changes A/P 86 yo with h/o CAD s/p NSTEMI and TANNER 10/2015, HTN, bph, alzheimer's who presents with sepsis Sepsis - s/p IVF and abx. has not required pressors. mgm't per ICU, pmd. CAD with prior NSTEMI/TANNER - CAD (3vd) NSTEMI s/p TANNER to OM1 and RPDA 10/2015. 50-60% residual mLAD and Ramus - Last TANNER almost one year ago was going to stop plavix this month. Currently with enzyme elevation --> would con't DAPT for now. Low threshold to hold if evidence of bleeding. OK to hold plavix if needed for intervention - Small elevation in CE's. Rise and fall pattern of CE's with ekg changes. Type II nstemi 2/2 demand from tachycardia/fever yesterday morning. Will treat per NSTEMI protocol. heparin drip, asa, plavix. monitor closely for bleeding. In light of sepsis, will defer cath for now, and continue to defer unless concern for high risk ischemia/infarct. - EKG abnormalities improved at lower heart rate. - repeat echo once enzymes trending down. Trend enzymes until peak. HTN - was hypotensive. now stable after IVF. Taking PO. Would decrease IVF rate to maintenance rate and if bp remains stable, stop altogether. Ischemic cardiomyopathy (40%) with mild-mod ischemic MR --> now 50-55% - Improvement in EF 04/2016 --> stopped metoprolol due to low bp. Bp had been too low as outpatient for lisinopril. metoprolol now resumed in setting of nstemi. Frequent PVC's/occ NSVT -electrolyte repletion prn. - tele monitoring - metoprolol. > 35 min cct. Discussed care with patient, family and nursing.
--- NOTE | 2016-10-20 11:37 | PN ---
Teaching Attending Note Name of Resident: Robert Brambila ATTENDING PHYSICIAN STATEMENT I saw and evaluated the patient. I reviewed the resident's note and discussed the case with the resident. I agree with the resident's findings and plan as documented. SUBJECTIVE: Pt seen and examined in the ICU. Confused, fever curve trending down. OBJECTIVE: Last Vital Signs Temp Pulse Resp BP Pulse Ox 97.8 F 76 18 116/60 97 10/20/16 10:00 10/20/16 10:00 10/20/16 10:00 10/20/16 10:00 10/20/16 09:00 Intake & Output 10/17/16 10/18/16 10/19/16 10/20/16 23:59 23:59 23:59 23:59 Intake Total 4200 950 Output Total 900 Balance 4200 50 Weight 180 lb 169 lb 12.095 oz Gen: confused, breathing nonlabored Heart: RRR Lung: decreased breath sounds at the bases Abd: soft, nontender Ext: no edema CBC, BMP 10/20/16 05:05 10/20/16 06:00 Active Medications Acetaminophen (Tylenol -) 650 mg PO Q4H PRN PRN Reason: FEVER OR PAIN Aspirin (Ecotrin -) 81 mg PO DAILY [facility] Last Admin: 10/20/16 09:38 Dose: 81 mg Atorvastatin Calcium (Lipitor -) 5 mg PO HS [facility] Chlorhexidine Gluconate (Hibiclens For Decolonization -) 1 applic TP HS [facility] Last Admin: 10/19/16 22:40 Dose: 1 applic Cholecalciferol (Vitamin D3 -) 1,000 unit PO DAILY [facility] Last Admin: 10/20/16 09:35 Dose: 1,000 unit Clopidogrel Bisulfate (Plavix -) 75 mg PO DAILY [facility] Last Admin: 10/20/16 09:36 Dose: 75 mg Heparin Sodium (Porcine) (Heparin -) 5,000 unit SQ TID [facility] Last Admin: 10/20/16 06:00 Dose: 5,000 unit Sodium Chloride (Normal Saline -) 1,000 mls @ 100 mls/hr IV ASDIR [facility] Last Admin: 10/19/16 17:26 Dose: 100 mls/hr Ceftriaxone Sodium (Rocephin 1gm Ivpb (Pre-Docked)) 50 mls @ 100 mls/hr IVPB DAILY@2200 [facility] Last Admin: 10/19/16 21:57 Dose: 100 mls/hr Metoprolol Succinate (Toprol Xl -) 25 mg PO DAILY [facility] Last Admin: 10/20/16 09:35 Dose: 25 mg Morphine Sulfate (Morphine Injection -) 1 mg IVPUSH Q4H PRN PRN Reason: PAIN Stop: 10/20/16 22:57 Mupirocin (Bactroban Ointment (For Decolonization) -) 1 applic NS BID [facility] Stop: 10/24/16 21:59 Last Admin: 10/20/16 09:36 Dose: 1 applic Non-Formulary Medication (Alpha Lipoic Acid [Alpha Lipoic Acid]) 600 mg PO DAILY [facility] Non-Formulary Medication (L.Acidoph,Paracasei, B.Lactis [Probiotic]) 1 each PO DAILY [facility] Non-Formulary Medication ([place]-3 Fatty Acids [[place]-3]) 1,000 mg PO DAILY [facility] Non-Formulary Medication (Rivastigmine [Exelon]) 13.3 mg TD DAILY [facility] ASSESSMENT AND PLAN: UTI Severe Sepsis Lactic Acidosis resolving +Troponins - Demand Ischemia vs ACS CAD HTN Dementia - continue antibiotics - f/u cultures - IVF - trend cardiac enzymes - beta tato, statin, ASA, plavix - echocardiogram - PO as tolerated - DVT prophylaxis - can monitor on telemetry
--- NOTE | 2016-10-20 11:42 | PN ---
Progress Note (short form) - Note Progress Note: ID Consult dictated UTI/ Sepsis secondary to UTI S/P acute urinary retention Toxic metabolic encephalopathy OBS Pending sepsis workup, empiric ceftriaxone
[2016-10-20] MEDS ORDERED: HEPARIN NA (PORCINE) 5,000 UNITS/ML 1ML VIAL IVPUSH PRN ×6 (11:45→20:28)
[2016-10-20] MEDS ORDERED: LACTOBACILLUS ACIDOPHILUS 1 EACH TAB (FP) PO SCH (11:45)
[2016-10-20] MEDS ORDERED: SODIUM CHLORIDE 1,000 ML IV SCH (11:51)
[2016-10-20] MEDS ORDERED: HEPARIN INFUSION - 500 ML IVPB ONE (12:21)
[2016-10-20] MEDS ORDERED: POTASSIUM CHLORIDE TABS 20 MEQ TABLET.ER (FP) PO ONE (13:00)
[2016-10-20] MEDS ORDERED: HEPARIN - 25,000 UNIT in SODIUM CHLORIDE 495 ML IV SCH (13:30)
--- NOTE | 2016-10-20 13:49 | MSN ---
Progress Note (short form) - Note Progress Note: Saw and evaluated patient this AM. Patient was alert and oriented to person and place (hospital), but was not oriented to time and date. Patient appeared calm and in no apparent distress. Nurse states that since administration of Ativan and Haloperidol earlier in the morning, patient has been calm and not agitated. Patient complains of no pain at present time. Patient's arce draining 200 cc of yellow urine with no blood. Patient has been sleeping well since admission. Patient denies F/C, N/V, abdominal pain, chest pain, shortness of breath, diarrhea, constipation. Patient's troponins tammy from 0.43 to 1.02. Cardiology consulted. [employer] (Dr. Jessie Ward) believes that elevated Jesse are likely due to type II NSTEMI secondary to demand from patient's tachycardia and fever yesterday. Patient to be treated per NSTEMI protocol (Heparin drip, plavix , and aspirin). Patient to also receive echocardiogram once Jesse trend down. Patient's WBC has been trending down (23.4 yesterday to 16.8 this AM). Preliminary urine cultures have returned 20-30K CFU of Staphylococcus species. Will continue to treat sepsis secondary to UTI with IV Ceftriaxone. Continue to monitor patient's labs and vitals. Current Medications Generic Name Dose Route Start Last Admin Trade Name Freq PRN Reason Stop Dose Admin Acetaminophen 650 mg 10/19/16 19:07 Tylenol - PO Q4H PRN FEVER OR PAIN Aspirin 81 mg 10/20/16 10:00 10/20/16 09:38 Ecotrin - PO 81 mg DAILY [facility] Administration Atorvastatin Calcium 5 mg 10/20/16 22:00 Lipitor - PO HS [facility] Chlorhexidine Gluconate 1 applic 10/19/16 22:00 10/19/16 22:40 Hibiclens For Decolonization - TP 1 applic HS [facility] Administration Cholecalciferol 1,000 unit 10/20/16 10:00 10/20/16 09:35 Vitamin D3 - PO 1,000 unit DAILY [facility] Administration Clopidogrel Bisulfate 75 mg 10/20/16 10:00 10/20/16 09:36 Plavix - PO 75 mg DAILY [facility] Administration Heparin Sodium (Porcine) 1,000 unit 10/20/16 11:45 Heparin - IVPUSH PRN PRN Heparin Heparin Sodium (Porcine) 5,000 unit 10/20/16 11:45 Heparin - IVPUSH PRN PRN Heparin Ceftriaxone Sodium 50 mls @ 100 mls/hr 10/19/16 22:00 10/19/16 21:57 Rocephin 1gm Ivpb (Pre-Docked) IVPB 100 mls/hr DAILY@2200 [facility] Administration Heparin Sodium (Porcine) 25, 500 mls @ 20 mls/hr 10/20/16 13:30 000 unit/ Sodium Chloride IV TITR [facility] Protocol 1,000 UNIT/HR Sodium Chloride 1,000 mls @ 42 mls/hr 10/20/16 11:51 10/20/16 12:46 Normal Saline - IV 42 mls/hr ASDIR [facility] Administration Lactobacillus Acidophilus 1 tab 10/20/16 11:45 10/20/16 12:59 Bacid - PO 1 tab DAILY [facility] Administration Metoprolol Succinate 25 mg 10/20/16 10:00 10/20/16 09:35 Toprol Xl - PO 25 mg DAILY [facility] Administration Morphine Sulfate 1 mg 10/19/16 22:58 Morphine Injection - IVPUSH 10/20/16 22:57 Q4H PRN PAIN Mupirocin 1 applic 10/19/16 22:00 10/20/16 09:36 Bactroban Ointment (For Decolonization) - NS 10/24/16 21:59 1 applic BID [facility] Administration Non-Formulary Medication 600 mg 10/20/16 10:00 Alpha Lipoic Acid [Alpha Lipoic Acid] PO DAILY [facility] Non-Formulary Medication 1,000 mg 10/20/16 10:00 [place]-3 Fatty Acids [[place]-3] PO DAILY [facility] Rivastigmine (Exelon 13.3 mg 10/20/16 10:00 ) 13.3 Mg/24 Hrs TD Transdermal Patch ( DAILY [facility] Pt's Own) Pantoprazole Sodium 40 mg 10/21/16 10:00 Protonix - PO DAILY [facility] Vital Signs Period Temp Pulse Resp BP Sys/Yun Pulse Ox Last 24 Hr 97.3 F-101.1 F 64-121 17-28 95-165/50-91 95-97 PHYSICAL EXAM GENERAL: Alert, oriented to person and place. In no apparent distress EYES: PERRLA, EOMI, conjunctiva clear bilaterally ENT: Ears normal, nares patent, no signs of trauma NECK: Trachea midline, no JVD, no lymphadenopathy HEART: Regular rate, rhythm, +S1, S2, no murmurs, gallops LUNGS: Equal breath sounds bilaterally, no wheezes, rhonchi ABDOMEN: Soft, nontender, normoactive bowel sounds in all four quadrants MSK: 5/5 Muscle Strength grossly NEURO: Calm affect, featherer intact, normal speech, gait not observed EXTREMITIES: 2+ pulses bilaterally, no edema, warm, well perfused Laboratory Results - last 24 hr 10/19/16 10/19/16 10/19/16 12:35 12:35 15:58 WBC RBC Hgb Hct MCV MCHC RDW Plt Count MPV Neutrophils % 88.0 H D Lymphocytes % 1.0 L D Monocytes % 1.0 L D Eosinophils % 1.0 Basophils % Band Neutrophils 9.0 D INR PTT (Actin FS) Puncture Site ABG pH ABG pCO2 at Pt Temp ABG pO2 at Pt Temp ABG HCO3 ABG O2 Sat (Measured) ABG O2 Content ABG Base Excess Jonh Test O2 Delivery Device Oxygen Flow Rate PEEP Sodium Potassium Chloride Carbon Dioxide Anion Gap BUN Creatinine Creat Clearance w eGFR Random Glucose Lactic Acid 3.391 H* 1.963 Calcium Phosphorus Magnesium Total Bilirubin AST ALT Alkaline Phosphatase Creatine Kinase Creatine Kinase Index CK-MB (CK-2) CK-MB (CK-2) Rel Index Troponin I Total Protein Albumin Ur Random Sodium Ur Random Potassium Ur Random Chloride Urine Creatinine Random Vancomycin 10/19/16 10/19/16 10/19/16 19:07 21:15 21:15 WBC 23.4 H D RBC 4.42 Hgb 11.5 L Hct 36.0 MCV 81.5 MCHC 31.8 L RDW 15.1 D Plt Count 284 D MPV 8.4 D Neutrophils % 94.0 H D Lymphocytes % 2.1 L D Monocytes % 3.6 L Eosinophils % 0.0 D Basophils % 0.3 Band Neutrophils INR 1.23 H PTT (Actin FS) 31.0 Puncture Site Right radial ABG pH 7.45 ABG pCO2 at Pt Temp 22.2 L ABG pO2 at Pt Temp 75.6 ABG HCO3 15.0 L ABG O2 Sat (Measured) 95.6 ABG O2 Content 17.1 ABG Base Excess -7.0 L Jonh Test Positive O2 Delivery Device Room air Oxygen Flow Rate 21% PEEP 0.0 Sodium Potassium Chloride Carbon Dioxide Anion Gap BUN Creatinine Creat Clearance w eGFR Random Glucose Lactic Acid Calcium Phosphorus Magnesium Total Bilirubin AST ALT Alkaline Phosphatase Creatine Kinase Creatine Kinase Index CK-MB (CK-2) CK-MB (CK-2) Rel Index Troponin I Total Protein Albumin Ur Random Sodium Ur Random Potassium Ur Random Chloride Urine Creatinine Random Vancomycin 10/19/16 10/19/16 10/19/16 21:15 21:15 21:15 WBC RBC Hgb Hct MCV MCHC RDW Plt Count MPV Neutrophils % Lymphocytes % Monocytes % Eosinophils % Basophils % Band Neutrophils INR PTT (Actin FS) Puncture Site ABG pH ABG pCO2 at Pt Temp ABG pO2 at Pt Temp ABG HCO3 ABG O2 Sat (Measured) ABG O2 Content ABG Base Excess Jonh Test O2 Delivery Device Oxygen Flow Rate PEEP Sodium 145 Potassium 3.6 Chloride 113 H Carbon Dioxide 22 Anion Gap 10 BUN 21 H D Creatinine 1.5 H D Creat Clearance w eGFR 44.48 Random Glucose 108 H Lactic Acid 2.556 H* Calcium 8.3 L Phosphorus Magnesium Total Bilirubin 0.4 AST 22 D ALT 39 D Alkaline Phosphatase 72 D Creatine Kinase 1319 H Creatine Kinase Index 0.7 CK-MB (CK-2) 8.599 H CK-MB (CK-2) Rel Index Troponin I 0.43 H Total Protein 6.0 L Albumin 2.9 L D Ur Random Sodium Ur Random Potassium Ur Random Chloride Urine Creatinine Random Vancomycin 10/19/16 10/19/16 10/20/16 21:15 21:15 02:00 WBC RBC Hgb Hct MCV MCHC RDW Plt Count MPV Neutrophils % Lymphocytes % Monocytes % Eosinophils % Basophils % Band Neutrophils INR PTT (Actin FS) Puncture Site ABG pH ABG pCO2 at Pt Temp ABG pO2 at Pt Temp ABG HCO3 ABG O2 Sat (Measured) ABG O2 Content ABG Base Excess Jonh Test O2 Delivery Device Oxygen Flow Rate PEEP Sodium Potassium Chloride Carbon Dioxide Anion Gap BUN Creatinine Creat Clearance w eGFR Random Glucose Lactic Acid Calcium Phosphorus 2.6 Magnesium 1.6 L Total Bilirubin AST ALT Alkaline Phosphatase Creatine Kinase Creatine Kinase Index CK-MB (CK-2) CK-MB (CK-2) Rel Index Cancelled Troponin I Total Protein Albumin Ur Random Sodium 198 Ur Random Potassium 16.5 Ur Random Chloride 202 Urine Creatinine Random Vancomycin 10/20/16 10/20/16 10/20/16 02:00 05:05 05:05 WBC 16.8 H RBC 4.26 Hgb 11.1 L Hct 34.5 L MCV 81.0 MCHC 32.3 RDW 15.2 Plt Count 254 MPV 9.0 Neutrophils % 90.4 H Lymphocytes % 4.6 L D Monocytes % 4.7 Eosinophils % 0.0 Basophils % 0.3 Band Neutrophils INR 1.37 H PTT (Actin FS) 27.2 Puncture Site ABG pH ABG pCO2 at Pt Temp ABG pO2 at Pt Temp ABG HCO3 ABG O2 Sat (Measured) ABG O2 Content ABG Base Excess Jonh Test O2 Delivery Device Oxygen Flow Rate PEEP Sodium Potassium Chloride Carbon Dioxide Anion Gap BUN Creatinine Creat Clearance w eGFR Random Glucose Lactic Acid Calcium Phosphorus Magnesium Total Bilirubin AST ALT Alkaline Phosphatase Creatine Kinase Creatine Kinase Index CK-MB (CK-2) CK-MB (CK-2) Rel Index Troponin I Total Protein Albumin Ur Random Sodium Ur Random Potassium Ur Random Chloride Urine Creatinine 52.7 Random Vancomycin 10/20/16 10/20/16 10/20/16 05:05 06:00 06:00 WBC RBC Hgb Hct MCV MCHC RDW Plt Count MPV Neutrophils % Lymphocytes % Monocytes % Eosinophils % Basophils % Band Neutrophils INR PTT (Actin FS) Puncture Site ABG pH ABG pCO2 at Pt Temp ABG pO2 at Pt Temp ABG HCO3 ABG O2 Sat (Measured) ABG O2 Content ABG Base Excess Jonh Test O2 Delivery Device Oxygen Flow Rate PEEP Sodium 144 Potassium 3.8 Chloride 111 H Carbon Dioxide 20 L Anion Gap 13 BUN 16 D Creatinine 1.2 Creat Clearance w eGFR 57.54 Random Glucose 86 D Lactic Acid 0.704 Calcium 8.2 L Phosphorus 2.6 Magnesium 1.9 Total Bilirubin 0.3 D AST 48 H D ALT 21 D Alkaline Phosphatase 70 Creatine Kinase Creatine Kinase Index CK-MB (CK-2) CK-MB (CK-2) Rel Index Troponin I Total Protein 5.7 L Albumin 2.7 L Ur Random Sodium Ur Random Potassium Ur Random Chloride Urine Creatinine Random Vancomycin 4.480 10/20/16 10/20/16 08:10 08:10 WBC RBC Hgb Hct MCV MCHC RDW Plt Count MPV Neutrophils % Lymphocytes % Monocytes % Eosinophils % Basophils % Band Neutrophils INR PTT (Actin FS) Puncture Site ABG pH ABG pCO2 at Pt Temp ABG pO2 at Pt Temp ABG HCO3 ABG O2 Sat (Measured) ABG O2 Content ABG Base Excess Jonh Test O2 Delivery Device Oxygen Flow Rate PEEP Sodium Potassium Chloride Carbon Dioxide Anion Gap BUN Creatinine Creat Clearance w eGFR Random Glucose Lactic Acid Calcium Phosphorus Magnesium Total Bilirubin AST ALT Alkaline Phosphatase Creatine Kinase 1100 H Creatine Kinase Index 0.5 CK-MB (CK-2) 5.572 H CK-MB (CK-2) Rel Index Cancelled Troponin I 1.02 H* D Total Protein Albumin Ur Random Sodium Ur Random Potassium Ur Random Chloride Urine Creatinine Random Vancomycin IMAGING: CXR (10/19/16 @13:23): Since 11/14/15, enlarged heart with sclerotic unfolded aorta , and tracheal deviation to the right. Increased markings at left base which could represent some focal atelectasis. CXR (10/20/16 @ 6:00): No significant interval change or acute lung disease is present ASSESSMENT AND PLAN 86 y/o M with PMHx of dementia, HTN, CAD, AL (one year ago s/p 2 stents) admitted for sepsis secondary to UTI 1. Sepsis secondary to UTI -In ED received NS 2L, Vanc/Zosyn -Patient currently admitted to ICU -Preliminary urine culture returned 20-30K CFU of Staphylococcus -Continue to treat with IV Ceftriaxone (Day 1) -Continue NS @ 100 mL/hr -WBC trending down (23.4 to 16.8) -Lactic acidosis has resolved (Highest was 3.3, down to 0.704) -ID Consult placed -Continue to monitor labs, vitals 2. Rising troponin levels - r/o ACS -History of CAD s/p two stents -Troponin elevated from 0.43 to 1.02 -Cardiology consult placed -Per [employer], Dr. Ward. Elevated troponin likely due to type II NSTEMI secondary to demand from patient's tachycardia and fever yesterday. Patient to be treated per NSTEMI protocol (Heparin drip, plavix, and aspirin). -Per Cardiology, patient to have echo once CE levels trend down -Continue to monitor vitals, labs 3. RASHEL secondary to hypovolemia -Creatinine is now 1.2, was elevated at 1.5, baseline is 1.1 -Continue IV NS -Continue to monitor labs 4. HTN -Continue Toprol 5. Dementia -Continue Rivastigmine 6. DVT Px -Heparin subq Dispo: Continue to monitor pt in ICU
--- NOTE | 2016-10-20 14:39 | PN ---
Physical Exam: SUBJECTIVE: Patient seen and examined at bedside in ICU. He's a little confused but able to answer simple questions, no complaint overnight. Per nurse, no acute event overnight but he was delirious overnight and received ativan and haldol. OBJECTIVE: Vital Signs Period Temp Pulse Resp BP Sys/Yun Pulse Ox Last 24 Hr 97.3 F-98.1 F 64-119 18-28 104-165/50-91 95-97 GENERAL: Confused, lethargic, unable to answer simple questions, not in any distress HEAD: AT, NC EYES: Pupils equal, round and reactive to light, sclera anicteric, conjunctiva clear ENT: oropharynx clear without exudates LUNGS: b/l rhonchi HEART: RRR, no murmur ABDOMEN: +bs, soft, non-tender EXTREMITIES: trace edema : arce in place CBCD WBC 16.8 K/mm3 (4.0-10.0) H 10/20/16 05:05 RBC 4.26 M/mm3 (4.00-5.60) 10/20/16 05:05 Hgb 11.1 GM/dL (11.7-16.9) L 10/20/16 05:05 Hct 34.5 % (35.4-49) L 10/20/16 05:05 MCV 81.0 fl (80-96) 10/20/16 05:05 MCHC 32.3 g/dl (32.0-35.9) 10/20/16 05:05 RDW 15.2 % (11.9-15.9) 10/20/16 05:05 Plt Count 254 K/MM3 (134-434) 10/20/16 05:05 MPV 9.0 fl (7.5-11.1) 10/20/16 05:05 CMP Sodium 144 mmol/L (136-145) 10/20/16 06:00 Potassium 3.8 mmol/L (3.5-5.1) 10/20/16 06:00 Chloride 111 mmol/L (98-107) H 10/20/16 06:00 Carbon Dioxide 20 mmol/L (21-32) L 10/20/16 06:00 Anion Gap 13 (8-16) 10/20/16 06:00 BUN 16 mg/dL (7-18) D 10/20/16 06:00 Creatinine 1.2 mg/dL (0.7-1.3) 10/20/16 06:00 Creat Clearance w eGFR 57.54 (>60) 10/20/16 06:00 Calcium 8.2 mg/dL (8.5-10.1) L 10/20/16 06:00 Total Bilirubin 0.3 mg/dL (0.2-1.0) D 10/20/16 06:00 AST 48 U/L (15-37) H D 10/20/16 06:00 ALT 21 U/L (12-78) D 10/20/16 06:00 Alkaline Phosphatase 70 U/L (45-117) 10/20/16 06:00 Total Protein 5.7 g/dl (6.4-8.2) L 10/20/16 06:00 Albumin 2.7 g/dl (3.4-5.0) L 10/20/16 06:00 Intake & Output 10/17/16 10/18/16 10/19/16 10/20/16 23:59 23:59 23:59 23:59 Intake Total 4200 950 Output Total 1400 Balance 4200 -450 Weight 81.647 kg 77 kg Active Medications Generic Name Dose Route Start Last Admin Trade Name Freq PRN Reason Stop Dose Admin Acetaminophen 650 mg 10/19/16 19:07 Tylenol - PO Q4H PRN FEVER OR PAIN Aspirin 81 mg 10/20/16 10:00 10/20/16 09:38 Ecotrin - PO 81 mg DAILY [facility] Administration Atorvastatin Calcium 5 mg 10/20/16 22:00 Lipitor - PO HS [facility] Chlorhexidine Gluconate 1 applic 10/19/16 22:00 10/19/16 22:40 Hibiclens For Decolonization - TP 1 applic HS [facility] Administration Cholecalciferol 1,000 unit 10/20/16 10:00 10/20/16 09:35 Vitamin D3 - PO 1,000 unit DAILY [facility] Administration Clopidogrel Bisulfate 75 mg 10/20/16 10:00 10/20/16 09:36 Plavix - PO 75 mg DAILY [facility] Administration Heparin Sodium (Porcine) 1,000 unit 10/20/16 11:45 Heparin - IVPUSH PRN PRN Heparin Heparin Sodium (Porcine) 5,000 unit 10/20/16 11:45 Heparin - IVPUSH PRN PRN Heparin Ceftriaxone Sodium 50 mls @ 100 mls/hr 10/19/16 22:00 10/19/16 21:57 Rocephin 1gm Ivpb (Pre-Docked) IVPB 100 mls/hr DAILY@2200 [facility] Administration Heparin Sodium (Porcine) 25, 500 mls @ 20 mls/hr 10/20/16 13:30 000 unit/ Sodium Chloride IV TITR [facility] Protocol 1,000 UNIT/HR Sodium Chloride 1,000 mls @ 42 mls/hr 10/20/16 11:51 10/20/16 12:46 Normal Saline - IV 42 mls/hr ASDIR [facility] Administration Lactobacillus Acidophilus 1 tab 10/20/16 11:45 10/20/16 12:59 Bacid - PO 1 tab DAILY [facility] Administration Metoprolol Succinate 25 mg 10/20/16 10:00 10/20/16 09:35 Toprol Xl - PO 25 mg DAILY [facility] Administration Morphine Sulfate 1 mg 10/19/16 22:58 Morphine Injection - IVPUSH 10/20/16 22:57 Q4H PRN PAIN Mupirocin 1 applic 10/19/16 22:00 10/20/16 09:36 Bactroban Ointment (For Decolonization) - NS 10/24/16 21:59 1 applic BID [facility] Administration Non-Formulary Medication 600 mg 10/20/16 10:00 Alpha Lipoic Acid [Alpha Lipoic Acid] PO DAILY [facility] Non-Formulary Medication 1,000 mg 10/20/16 10:00 [place]-3 Fatty Acids [[place]-3] PO DAILY [facility] Rivastigmine (Exelon 13.3 mg 10/20/16 10:00 ) 13.3 Mg/24 Hrs TD Transdermal Patch ( DAILY [facility] Pt's Own) Pantoprazole Sodium 40 mg 10/21/16 10:00 Protonix - PO DAILY [facility] Microbiology 10/19/16 13:00 Urine - Urine Clean Catch Urine Culture - Preliminary Staphylococcus Species ASSESSMENT/PLAN: 86 yo M h/o dementia, HTN and CAD s/p 2 stents, chronic urinary retention, BPH, cholecystectomy admitted to ICU for urosepsis and AMS ID: Sepsis 2/2 complicated UTI - Arce inserted by urology * recommended elective circumcision - Afrebile and WBC trending down - Lactic acid normalized - Pending cultures * previous culture grew E. coli sensitive to all abx - Received vanco and zosyn in ED - Cont. rocephin day 2 Neuro: Altered mental status 2/2 urosepsis - Correcting underlying cause - Mental status improving Cardiac: NSTEMI vs. Demand ischemia; HTN - Troponin trended up from 0.4 to 1 this AM - Likely demand ischemia - Started heparin gtt, asa, plavix, statin - Cont. anti HTN medications - F/U ECHO FEN - Cont. IVF - Replete as needed - NPO due to mental status Prophylaxis - DVT: On heparin gtt - GI: protonix Disposition -Transfer to telemetry Code status - Full code Visit type - Emergency Visit Emergency Visit: No - New Patient This patient is new to me today: Yes Date on this admission: 10/20/16 - Critical Care Critical Care patient: Yes Total Critical Care Time (in minutes): 45 Critical Care Statement: The care of this patient involved high complexity decision making to prevent further life threatening deterioration of the patient 's condition and/or to evalute & treat vital organ system(s) failure or risk of failure.
[2016-10-20] MEDS ORDERED: MIDAZOLAM HCL 2 MG/2 ML SINGLE DOSE VIAL IVPUSH ONE (14:41)
--- NOTE | 2016-10-20 15:56 | PN ---
Physical Exam: SUBJECTIVE: Patient seen and examined sleeping this am. Reevaluation in afternoon, patient pleasant, awake, oriented. Not in any distress. Denies chest pain, sob, DONAHUE, palpitations, lightheadedness. OBJECTIVE: Vital Signs Period Temp Pulse Resp BP Sys/Yun Pulse Ox Last 24 Hr 97.3 F-98.1 F 64-119 18-28 104-165/50-91 95-97 GENERAL: The patient is awake, alert, and fully oriented, in no acute distress. HEAD: Normal with no signs of trauma. EYES: PERRL, extraocular movements intact, sclera anicteric, conjunctiva clear. No ptosis. ENT: Ears normal, nares patent, oropharynx clear without exudates, moist mucous membranes. NECK: Trachea midline, full range of motion, supple. LUNGS: Breath sounds decreased, clear to auscultation bilaterally, no wheezes, no crackles, no accessory muscle use. HEART: Regular rate and rhythm, S1, S2 without murmur, rub or gallop. ABDOMEN: Soft, nontender, nondistended, normoactive bowel sounds, no guarding, no rebound, no hepatosplenomegaly, no masses. EXTREMITIES: 2+ pulses, warm, well-perfused, no edema. NEUROLOGICAL: Cranial nerves II through XII grossly intact. Normal speech, gait not observed. PSYCH: Normal mood, normal affect. SKIN: Warm, dry, normal turgor, no rashes or lesions noted Arce in place CBC, BMP 10/20/16 05:05 10/20/16 06:00 Active Medications Generic Name Dose Route Start Last Admin Trade Name Suhailq PRN Reason Stop Dose Admin Acetaminophen 650 mg 10/19/16 19:07 Tylenol - PO Q4H PRN FEVER OR PAIN Aspirin 81 mg 10/20/16 10:00 10/20/16 09:38 Ecotrin - PO 81 mg DAILY [facility] Administration Atorvastatin Calcium 5 mg 10/20/16 22:00 Lipitor - PO HS [facility] Chlorhexidine Gluconate 1 applic 10/19/16 22:00 10/19/16 22:40 Hibiclens For Decolonization - TP 1 applic HS [facility] Administration Cholecalciferol 1,000 unit 10/20/16 10:00 10/20/16 09:35 Vitamin D3 - PO 1,000 unit DAILY [facility] Administration Clopidogrel Bisulfate 75 mg 10/20/16 10:00 10/20/16 09:36 Plavix - PO 75 mg DAILY [facility] Administration Heparin Sodium (Porcine) 1,000 unit 10/20/16 11:45 Heparin - IVPUSH PRN PRN Heparin Heparin Sodium (Porcine) 5,000 unit 10/20/16 11:45 Heparin - IVPUSH PRN PRN Heparin Ceftriaxone Sodium 50 mls @ 100 mls/hr 10/19/16 22:00 10/19/16 21:57 Rocephin 1gm Ivpb (Pre-Docked) IVPB 100 mls/hr DAILY@2200 [facility] Administration Heparin Sodium (Porcine) 25, 500 mls @ 20 mls/hr 10/20/16 13:30 10/20/16 14:32 000 unit/ Sodium Chloride IV 20 mls/hr TITR [facility] Administration Protocol 1,000 UNIT/HR Lactobacillus Acidophilus 1 tab 10/20/16 11:45 10/20/16 12:59 Bacid - PO 1 tab DAILY [facility] Administration Metoprolol Succinate 25 mg 10/20/16 10:00 10/20/16 09:35 Toprol Xl - PO 25 mg DAILY [facility] Administration Morphine Sulfate 1 mg 10/19/16 22:58 Morphine Injection - IVPUSH 10/20/16 22:57 Q4H PRN PAIN Mupirocin 1 applic 10/19/16 22:00 10/20/16 09:36 Bactroban Ointment (For Decolonization) - NS 10/24/16 21:59 1 applic BID [facility] Administration Non-Formulary Medication 600 mg 10/20/16 10:00 Alpha Lipoic Acid [Alpha Lipoic Acid] PO DAILY [facility] Non-Formulary Medication 1,000 mg 10/20/16 10:00 [place]-3 Fatty Acids [[place]-3] PO DAILY [facility] Rivastigmine (Exelon 13.3 mg 10/20/16 10:00 ) 13.3 Mg/24 Hrs TD Transdermal Patch ( DAILY [facility] Pt's Own) Pantoprazole Sodium 40 mg 10/21/16 10:00 Protonix - PO DAILY [facility] Microbiology 10/19/16 13:00 Urine - Urine Clean Catch Urine Culture - Preliminary Staphylococcus Species ASSESSMENT/PLAN: This is n 86 year old male with a past medical history of htn, coronary artery disease (s/p drug eluting stents x2 last year), chronic urinary retention, BPH, dementia, presented with altered mental stats, s/p outpatient treatment failure of urinary tract infection. #Sepsis secondary to complicated urinary tract infection: improving -wbc trending down, lactic acid wnl; off IVF; normotensive; afebrile; vitals wnl -urine culture: growing staph species -currently on ceftriaxone 1gm IVPB daily (day 2) #Altered mental status: secondary to sepsis, hx dementia, metablolic encephalopathy : improving -baseline demetia with sun downing; as per family is usually pleasant, non violent -seroquele 25m gHS -ativan 2mg q4h prn for agitation; -cont Rivastigmine (Exelon) ; used for cognition enhancing -monitor labs for electrolytes abnormalities -try to avoid haldol; worsens delirium in this patient #elevated troponins: most likely secondary to demand ischemia during sepsis -troponin->0.4 ->1.02 ; continue to trend until peak -heparin gtt as per NSTEMI protocol -continue dual anticoagulation therapy; asa 81mg po qd and plavix 75mg po qd -continue Lipitor 5mg po HS -metoprolol succinate 25mg po qd -f/u echocardiogram #elevated ALT; most likely related to sepsis; trend #Hypertension: -cont metoprolol #chronic urinary retention/BPH: -arce (day 2)placed by Dr. Hale; -monitor U/O -renal US -as per urology; patient will need circumcision as outpatient FEN: Fluids: d/c due to stable vital po intake Electrolytes: corrected calcium 9.2 Diet: cardiac VTE: oh heparin drip GI prophylaxis: protonix Disposition: continue cardiac monitoring nurse to be aware sun downer: will try to leave bed; please have bed alarm on ; please keep close eye on patient ; family is very concerned that he will try to leave; if one to one not feasible; please keep patient by nursing station to monitor. daughter Molly:[phone] son in law- [phone] Problem List - Problems (1) Sepsis Code(s): A41.9 - SEPSIS, UNSPECIFIED ORGANISM (2) UTI (urinary tract infection) Code(s): N39.0 - URINARY TRACT INFECTION, SITE NOT SPECIFIED (3) Abnormal transaminases Code(s): R74.0 - NONSPEC ELEV OF LEVELS OF TRANSAMNS & LACTIC ACID DEHYDRGNSE (4) Urinary retention due to benign prostatic hyperplasia Code(s): N40.1 - BENIGN PROSTATIC HYPERPLASIA WITH LOWER URINARY TRACT SYMP R33.8 - OTHER RETENTION OF URINE (5) Urinary retention with incomplete bladder emptying Code(s): R33.9 - RETENTION OF URINE, UNSPECIFIED (6) NSTEMI (non-ST elevated myocardial infarction) Code(s): I21.4 - NON-ST ELEVATION (NSTEMI) MYOCARDIAL INFARCTION (7) Demand ischemia Code(s): I24.8 - OTHER FORMS OF ACUTE ISCHEMIC HEART DISEASE (8) Dementia Code(s): F03.90 - UNSPECIFIED DEMENTIA WITHOUT BEHAVIORAL DISTURBANCE Visit type - Emergency Visit Emergency Visit: Yes ED Registration Date: 10/19/16 Care time: The patient presented to the Emergency Department on the above date and was hospitalized for further evaluation of their emergent condition. - New Patient This patient is new to me today: Yes Date on this admission: 10/20/16 - Critical Care Critical Care patient: No
[2016-10-20] MEDS ORDERED: LORAZEPAM CARPU-JECT 2 MG/ML DISP.SYRIN IVPUSH PRN ×5 (16:50→20:28)
[2016-10-20] MEDS ORDERED: MEMANTINE HCL 10 MG TABLET (FP) PO ONE ×2 (16:59)
--- NOTE | 2016-10-20 17:34 | EKG ---
Test Reason : Blood Pressure : / mmHG Vent. Rate : 106 BPM Atrial Rate : 106 BPM P-R Int : 162 ms QRS Dur : 078 ms QT Int : 350 ms P-R-T Axes : 050 -05 031 degrees QTc Int : 464 ms SINUS TACHYCARDIA WITH FREQUENT PREMATURE VENTRICULAR COMPLEXES NONSPECIFIC ST AND T WAVE ABNORMALITY ABNORMAL ECG WHEN COMPARED WITH ECG OF 19-OCT-2016 12:34, PREMATURE SUPRAVENTRICULAR COMPLEXES ARE NO LONGER PRESENT T WAVE VARIATION VENT. RATE HAS DECREASED Confirmed by KELSEA GUALLPA, TONEY ([id number]) on 10/20/2016 5:33:46 PM Referred By: CITLALLI Confirmed By:TONEY ENAMORADO MD
--- NOTE | 2016-10-20 17:43 | PN ---
Teaching Attending Note Name of Resident: Katy Pinto ATTENDING PHYSICIAN STATEMENT I saw and evaluated the patient. I reviewed the resident's note and discussed the case with the resident. I agree with the resident's findings and plan as documented. SUBJECTIVE:currently asymptomatic. states he has no complaints. denies CP, SOB, fever, chills, N/V/C/D, palpitations OBJECTIVE: Last Vital Signs Temp Pulse Resp BP Pulse Ox 97.6 F 95 H 14 103/77 97 10/20/16 14:00 10/20/16 16:00 10/20/16 16:00 10/20/16 16:00 10/20/16 09:00 Intake & Output 10/17/16 10/18/16 10/19/16 10/20/16 23:59 23:59 23:59 23:59 Intake Total 4200 950 Output Total 1400 Balance 4200 -450 Weight 180 lb 169 lb 12.095 oz General NAD A&Ox2 (self and location) CV S1 S2 RRR no murmur/rub/gallop Lungs CTA B/L no wheezing/rales/rhonchi Abdomen soft NT/ND Extremities no pedal edema ASSESSMENT AND PLAN: 86yo M with PMH CAD s/p stents, HTN, BPH, dementia/Alzheimer presented to the ER and was admitted for further evaluation of their emergent condition 1. Sepsis due to UTI- due to urinary obstruction. arce placed by urology with large UOP. Tm103.8, lactic acidosis resolved. On ceftriaxone day2. will need to follow up with urology about further management for stricture/phimosis. ID and urology on board 2. Elevated tropnin- likely demand ischemia, however in setting of continuing to trend up will treat NSTEMI. cardio consulted. started on hep ggt, asa, plavix. will cont to trend troponins until peak. further ischemic eval per cardio. echo done with no WMA 3. RASHEL- likely due to blockage. improved. avoid nephrotoxic medications. maintain arce 4. dementia- agitated in the evening. given haldol/ativan last night and was lethargic all day. mental status just improving now. several attempts to get out of bed during my exam. will start low dose seroquel. endy vest. 5. DVT ppx- hep ggt 6. stable for transfer to [facility] for continuous cardiac monitoring 7. plan d/w present at bedside. answered all questions. verbalized understanding and agreement with plan. The care of this patient involved high complexity decision making to prevent further life threatening deterioration of the patient's condition and/or to evalute & treat vital organ system(s) failure or risk of failure. 35minutes critical care time
[2016-10-20] MEDS ORDERED: LORAZEPAM CARPU-JECT 2 MG/ML DISP.SYRIN ONE (18:18)
[2016-10-20] MEDS ORDERED: LORAZEPAM CARPU-JECT 2 MG/ML DISP.SYRIN IVPUSH ONE (19:16)
[2016-10-20 19:23] LABS: TROPONIN I 0.78 ng/ml (0.00-0.05)
[2016-10-20] MEDS ORDERED: morphine CARPU-JECT 2 MG/1 ML DISP.SYRIN IVPUSH PRN (20:28)
[2016-10-20] MEDS ORDERED: ACETAMINOPHEN 325 MG TABLET (FP) PO PRN (20:28)
--- NOTE | 2016-10-20 21:14 | CONS ---
DATE OF CONSULTATION: 10/20/2016 HISTORY OF PRESENT ILLNESS: The patient is an 86-year-old male with history of dementia, evaluated for sepsis secondary to UTI. The history was obtained from the chart as he cannot give a history secondary to his dementia and altered mentation. According to the notes, he had been ill for several days. He had increasing generalized weakness and increased lethargy. One day prior to admission, he developed high-grade fever and chills. He was taken to [facility] Emergency Room where his temperature was 103, white blood cell count 15,000. He was noted to be tachycardic. Laboratory data showed an elevated lactic acid level. In the emergency room, there was difficulty passing a Massey catheter secondary to a phimosis. Urology was consulted and a catheter was successfully placed. Urine was described as not grossly purulent. The patient was admitted to the Intensive Care Unit because of his tachycardia, lethargy, elevated lactic acid level, and strong cardiac history. He was empirically treated with Zosyn, vancomycin, and ceftriaxone. At the present time, he is lethargic; however, he is arousable. He offers no complaints. He denies any pain. No reports of labored breathing, cough, sputum production, vomiting, diarrhea, grossly purulent urine. No reported infected decubitus ulcers. Patient received a short course of ciprofloxacin, prescribed as an outpatient, for UTI. PAST MEDICAL HISTORY: Positive for dementia, hypertension, coronary artery disease, myocardial infarction, coronary artery stents, history of Escherichia coli bacteremia and biliary sepsis in 2013. PAST SURGICAL HISTORY: Status post cholecystectomy. ALLERGIES: No known allergies. MEDICATIONS: Presently includes ceftriaxone, Tylenol, heparin, Toprol, Lipitor, Ecotrin, Plavix. SOCIAL HISTORY: He lives at home. He is a former smoker and daily alcohol use as per chart. REVIEW OF SYSTEMS: Neurologic: Positive for altered mental status and dementia. Cardiac: Negative chest pain and palpitations. Respiratory: Negative cough and sputum production. Gastrointestinal: Negative vomiting or diarrhea. Genitourinary: As per HPI. LABORATORY DATA: White blood cell count on admission 23.4 with left shift, hematocrit presently 16.8, hematocrit 34.5, platelet count 254, creatinine 1.2, urinalysis shows 20-30 white cells. Chest x-ray negative for acute infiltrate. PHYSICAL EXAMINATION: General: He is awake; however, he is lethargic and mildly confused. He is wearing a Crockett vest. Vital signs: Temperature 97.3, temperature max 103.8, blood pressure 117/55, pulse 82, regular respirations at 20 per minute. HEENT: Sclerae anicteric. Neck: Supple. Heart: S1, S2 Lungs: Clear bilaterally. No rhonchi, rales, or wheezing. Abdomen: Obese, soft. No suprapubic or flank tenderness. Extremities: Negative for edema. IMPRESSION: 1. Urinary tract infection/sepsis secondary to urinary tract infection. 2. Toxic metabolic encephalopathy superimposed on baseline dementia. 3. Lactic acidosis secondary to sepsis. 4. High-grade fever and leukocytosis. 5. Obstructive uropathy secondary to phimosis, status post Massey catheter. PLAN: Sepsis workup to continue empiric ceftriaxone 1 g IV piggy back daily. Continue hemodynamic support and ICU monitoring. Await culture results. CRITICAL CARE TIME: 35 minutes. I will follow. Thank you for the kind referral. SHAN HOPKINS M.D. [id number]
[2016-10-20] MEDS ORDERED: ATORVASTATIN CA 10 MG TABLET (FP) PO SCH (22:00)
[2016-10-20] MEDS ORDERED: QUEtiapine FUMARATE 25 MG TABLET (FP) PO SCH (22:00)
[2016-10-20] MEDS ORDERED: MUPIROCIN 2% TOPICAL OINTMENT FOR DECOLONIZATION NS SCH (22:00)
[2016-10-20] MEDS ORDERED: CHLORHEXIDINE GLUCONATE 4% CLEANSER FOR DECOLONIZATION TP SCH (22:00)
[2016-10-20] MEDS: QUEtiapine FUMARATE 25 MG TABLET (FP) PO SCH (22:40)
[2016-10-20] MEDS: ATORVASTATIN CA 10 MG TABLET (FP) PO SCH (22:41)
[2016-10-20] MEDS: HEPARIN - 25,000 UNIT in SODIUM CHLORIDE 495 ML IV SCH (22:41)
[2016-10-20] MEDS: CEFTRIAXONE 50 ML IVPB SCH (22:42)
[2016-10-21 07:05] LABS: ALBUMIN 2.5 g/dl (3.4-5.0)
[2016-10-21 07:10] LABS: BILIRUBIN,TOTAL 0.4 mg/dL (0.2-1.0); CREATININE 1.2 mg/dL (0.7-1.3); TOT PROT 5.4 g/dl (6.4-8.2)
[2016-10-21] MEDS ORDERED: POTASSIUM CHLORIDE TABS 20 MEQ TABLET.ER (FP) PO ONE (08:45)
[2016-10-21 09:04] LABS: BASOPHIL 0.7 % (0-2.0); EOSINOPHIL 1.4 % (0-4.5); MCH 26.2 pg (25.7-33.7); MCHC 31.9 g/dl (32.0-35.9); MEAN CELL VOLUME 82.2 fl (80-96); MEAN PLT VOLUME 8.8 fl (7.5-11.1); NEUTROPHILS 83.1 % (42.8-82.8); PLATELET COUNT 217 K/MM3 (134-434); RDW 15.3 % (11.9-15.9); WHITE BLOOD COUNT 10.3 K/mm3 (4.0-10.0)
[2016-10-21] MEDS ORDERED: ALPHA LIPOIC ACID 600 MG PO SCH (10:00)
[2016-10-21] MEDS ORDERED: PANTOPRAZOLE 40 MG TABLET (FP) PO SCH (10:00)
[2016-10-21] MEDS ORDERED: PATIENT'S OWN MEDICATION (NON-FORMULARY) (Omega-3 Fatty Acids [Omega-3] 1,000 MG) PO SCH (10:00)
[2016-10-21] MEDS: LACTOBACILLUS ACIDOPHILUS 1 EACH TAB (FP) PO SCH (10:05)
[2016-10-21] MEDS: ASPIRIN COATED 81 MG TABLET.EC PO SCH (10:06)
[2016-10-21] MEDS: CHOLECALCIFEROL (VITAMIN D3) 1,000 UNIT TABLET (FP) PO SCH (10:06)
[2016-10-21] MEDS: PANTOPRAZOLE 40 MG TABLET (FP) PO SCH (10:06)
[2016-10-21] MEDS: METOPROLOL SUCCINATE 25 MG TAB.SR.24H (FP) PO SCH (10:06)
[2016-10-21] MEDS: CLOPIDOGREL BISULFATE 75 MG TABLET (FP) PO SCH (10:06)
--- NOTE | 2016-10-21 10:27 | PN ---
Progress Note (short form) - Note Progress Note: s: cc: cad, +trops; lethargic, arousable but no significant communication, appears comfortable, no overnight events, ex cigs o: Vital Signs Temp 97.7 F 10/21/16 06:01 Pulse 59 L 10/21/16 06:01 Resp 18 10/21/16 06:01 BP 136/81 10/21/16 06:01 Pulse Ox 97 10/20/16 22:00 Intake & Output 10/20/16 10/20/16 10/21/16 11:59 23:59 11:59 Intake Total 950 1072 546 Output Total 900 700 300 Balance 50 372 246 Weight 169 lb 12.095 oz Intake: IV 800 922 496 Normal Saline - 1,000 ml 800 400 @ 100 mls/hr IV ASDIR [place] Rx#:[id number] Heparin - 25,000 Unit In 100 Normal Saline - 495 ml @ 1,000 UNIT/HR 20 mls/hr IV TITR [place] Rx#: [id number] Normal Saline - 1,000 ml 402 336 @ 42 mls/hr IV ASDIR [place] Rx#:[id number] Heparin - 25,000 Unit In 20 160 Normal Saline - 495 ml @ 1,000 UNIT/HR 20 mls/hr IV TITR [place] Rx#: [id number] IVPB 100 100 50 Oral 50 50 Output: Urine 900 700 300 Massey 900 700 300 Other: Voiding Method Indwelling Catheter Indwelling Catheter Indwelling Catheter Bowel Movement Yes No No # Bowel Movements 1 Weight Measurement Method Built in [facility] nad no jvd rrr s1s2 no mrg scattered rhonchi, poor eff lethargic but arousable, no sig communication abd nd pos bs no le e/c/c no jaundice diaphoresis +dp pt Current Medications Generic Name Dose Route Start Last Admin Trade Name Freq PRN Reason Stop Dose Admin Acetaminophen 650 mg 10/20/16 20:28 10/20/16 22:45 Tylenol - PO 650 mg Q4H PRN Administration FEVER OR PAIN Aspirin 81 mg 10/21/16 10:00 10/21/16 10:06 Ecotrin - PO 81 mg DAILY [place] Administration Atorvastatin Calcium 5 mg 10/20/16 22:00 10/20/16 22:41 Lipitor - PO 5 mg HS [place] Administration Cholecalciferol 1,000 unit 10/21/16 10:00 10/21/16 10:06 Vitamin D3 - PO 1,000 unit DAILY [place] Administration Clopidogrel Bisulfate 75 mg 10/21/16 10:00 10/21/16 10:06 Plavix - PO 75 mg DAILY [place] Administration Heparin Sodium (Porcine) 1,000 unit 10/20/16 20:28 Heparin - IVPUSH PRN PRN Heparin Heparin Sodium (Porcine) 5,000 unit 10/20/16 20:28 Heparin - IVPUSH PRN PRN Heparin Ceftriaxone Sodium 50 mls @ 100 mls/hr 10/20/16 22:00 10/20/16 22:42 Rocephin 1gm Ivpb (Pre-Docked) IVPB 100 mls/hr DAILY@2200 [place] Administration Heparin Sodium (Porcine) 25, 500 mls @ 20 mls/hr 10/20/16 20:28 10/21/16 09:06 000 unit/ Sodium Chloride IV 1,000 unit/hr TITR [place] Titration Protocol 1,000 UNIT/HR Lactobacillus Acidophilus 1 tab 10/21/16 10:00 10/21/16 10:05 Bacid - PO 1 tab DAILY [place] Administration Lorazepam 1 mg 10/20/16 20:28 10/21/16 04:25 Ativan Injection - IVPUSH 1 mg Q6H PRN Administration ANXIETY Metoprolol Succinate 25 mg 10/21/16 10:00 10/21/16 10:06 Toprol Xl - PO 25 mg DAILY [place] Administration Non-Formulary Medication 600 mg 10/21/16 10:00 Alpha Lipoic Acid [Alpha Lipoic Acid] PO DAILY [place] Non-Formulary Medication 1,000 mg 10/21/16 10:00 Ruskin-3 Fatty Acids [Ruskin-3] PO DAILY [place] Non-Formulary Medication 13.3 mg 10/21/16 10:00 Rivastigmine [Exelon] TD DAILY [place] Pantoprazole Sodium 40 mg 10/21/16 10:00 10/21/16 10:06 Protonix - PO 40 mg DAILY [place] Administration Quetiapine Fumarate 25 mg 10/20/16 22:00 10/20/16 22:40 Seroquel - PO 25 mg HS [place] Administration Laboratory Last Values WBC 10.3 K/mm3 (4.0-10.0) H D 10/21/16 06:00 RBC 4.39 M/mm3 (4.00-5.60) 10/21/16 06:00 Hgb 11.5 GM/dL (11.7-16.9) L 10/21/16 06:00 Hct 36.0 % (35.4-49) 10/21/16 06:00 MCV 82.2 fl (80-96) 10/21/16 06:00 MCHC 31.9 g/dl (32.0-35.9) L 10/21/16 06:00 RDW 15.3 % (11.9-15.9) 10/21/16 06:00 Plt Count 217 K/MM3 (134-434) 10/21/16 06:00 MPV 8.8 fl (7.5-11.1) 10/21/16 06:00 Neutrophils % 83.1 % (42.8-82.8) H 10/21/16 06:00 Lymphocytes % 8.0 % (8-40) D 10/21/16 06:00 Monocytes % 6.8 % (3.8-10.2) 10/21/16 06:00 Eosinophils % 1.4 % (0-4.5) D 10/21/16 06:00 Basophils % 0.7 % (0-2.0) 10/21/16 06:00 Band Neutrophils 9.0 % (0-10) D 10/19/16 12:35 INR 1.37 (0.82-1.09) H 10/20/16 05:05 PTT (Actin FS) 58.2 SECONDS (26.9-34.4) H 10/21/16 05:35 Puncture Site Right radial 10/19/16 19:07 ABG pH 7.45 (7.35-7.45) 10/19/16 19:07 ABG pCO2 at Pt Temp 22.2 mmHg (35-45) L 10/19/16 19:07 ABG pO2 at Pt Temp 75.6 mmHg (68-100) 10/19/16 19:07 ABG HCO3 15.0 meq/L (22-26) L 10/19/16 19:07 ABG O2 Sat (Measured) 95.6 % (90-98.9) 10/19/16 19:07 ABG O2 Content 17.1 % vol (15-22) 10/19/16 19:07 ABG Base Excess -7.0 meq/l (-2-2) L 10/19/16 19:07 John Test Positive 10/19/16 19:07 O2 Delivery Device Room air 10/19/16 19:07 Oxygen Flow Rate 21% 10/19/16 19:07 PEEP 0.0 cmH2O 10/19/16 19:07 Sodium 143 mmol/L (136-145) 10/21/16 05:35 Potassium 3.3 mmol/L (3.5-5.1) L 10/21/16 05:35 Chloride 110 mmol/L (98-107) H 10/21/16 05:35 Carbon Dioxide 19 mmol/L (21-32) L 10/21/16 05:35 Anion Gap 14 (8-16) 10/21/16 05:35 BUN 17 mg/dL (7-18) 10/21/16 05:35 Creatinine 1.2 mg/dL (0.7-1.3) 10/21/16 05:35 Creat Clearance w eGFR 57.54 (>60) 10/21/16 05:35 Random Glucose 84 mg/dL (74-106) 10/21/16 05:35 Lactic Acid 0.704 mmol/L (0.4-2.0) 10/20/16 05:05 Calcium 8.0 mg/dL (8.5-10.1) L 10/21/16 05:35 Phosphorus 2.6 mg/dL (2.5-4.9) 10/20/16 06:00 Magnesium 1.9 mg/dL (1.8-2.4) 10/20/16 06:00 Total Bilirubin 0.4 mg/dL (0.2-1.0) D 10/21/16 05:35 AST 44 U/L (15-37) H 10/21/16 05:35 ALT 23 U/L (12-78) 10/21/16 05:35 Alkaline Phosphatase 63 U/L (45-117) 10/21/16 05:35 Creatine Kinase 764 IU/L (39-308) H D 10/20/16 14:45 Creatine Kinase Index 0.5 % (0.0-5.0) 10/20/16 08:10 CK-MB (CK-2) 5.572 ng/ml (0.5-3.6) H 10/20/16 08:10 CK-MB (CK-2) Rel Index Cancelled 10/19/16 21:15 Troponin I 0.78 ng/ml (0.00-0.05) H* 10/20/16 14:45 Total Protein 5.4 g/dl (6.4-8.2) L 10/21/16 05:35 Albumin 2.5 g/dl (3.4-5.0) L 10/21/16 05:35 Urine Color Yellow 10/19/16 13:00 Urine Appearance Clear 10/19/16 13:00 Urine pH 5.0 (4.5-8) D 10/19/16 13:00 Ur Specific [place] 1.015 (1.005-1.025) 10/19/16 13:00 Urine Protein Trace (NEGATIVE) 10/19/16 13:00 Urine Glucose (UA) Negative (NEGATIVE) 10/19/16 13:00 Urine Ketones Negative (NEGATIVE) 10/19/16 13:00 Urine Blood Trace-intact (NEGATIVE) 10/19/16 13:00 Urine Nitrite Negative (NEGATIVE) 10/19/16 13:00 Urine Bilirubin Negative (NEGATIVE) 10/19/16 13:00 Urine Urobilinogen 0.2 e.u/dl (0.2-1.0) 10/19/16 13:00 Ur Leukocyte Esterase 1+ (NEGATIVE) H D 10/19/16 13:00 Urine RBC 3-5 /hpf (0-3) 10/19/16 13:00 Urine WBC 20-30 (3-5) 10/19/16 13:00 Ur Epithelial Cells 3-5 /HPF 10/19/16 13:00 Ur Random Sodium 198 MMOL/L 10/20/16 02:00 Ur Random Potassium 16.5 MMOL/L 10/20/16 02:00 Ur Random Chloride 202 MMOL/L 10/20/16 02:00 Urine Creatinine 52.7 mg/dL 10/20/16 02:00 Random Vancomycin 4.480 ug/ml 10/20/16 06:00 Tele: sr, Frequent PVC's EKG 1: sinus tach 125 bpm. with pvc. anterolateral twi and std. EKG 2: Sinus tach with pvc pac. subtle ST sagging in anterolateral leads. No acute ischemic changes echo 10/2016: mild conc lvh, nl lv, nl rv, mild lae, mild mr, mild tr, mild ar, rvsp 30-40 A/P 86 yo with h/o CAD s/p NSTEMI and TANNER 10/2015, HTN, bph, alzheimer's who presents with sepsis Sepsis, uti - s/p IVF and abx. has not required pressors. cont abx per ID CAD with prior NSTEMI/TANNER - CAD (3vd) NSTEMI s/p TANNER to OM1 and RPDA 10/2015. 50-60% residual mLAD and Ramus - Last TANNER almost one year ago was going to stop plavix this month. Currently with enzyme elevation --> would con't DAPT for now. Low threshold to hold if evidence of bleeding. OK to hold plavix if needed for intervention - Small elevation in CE's. There is a subtle rise and fall pattern of CE's with ekg changes, likely Type II nstemi 2/2 demand from tachycardia/fever/ sepsis. Will treat per NSTEMI protocol with heparin drip, asa, plavix. monitor closely for bleeding. In light of sepsis, will defer cath for now, and continue to defer unless concern for high risk ischemia/infarct. - EKG abnormalities improved at lower heart rate. - echo with no WMA's, unremarkable - cont bb, statin HTN - was hypotensive. now stable after IVF, abx. Ischemic cardiomyopathy (40%) with mild-mod ischemic MR -->now normal lvef - Improvement in EF 04/2016 --> Bp had been too low as outpatient for lisinopril. metoprolol now resumed in setting of nstemi, tolerating so far. Frequent PVC's/occ NSVT -electrolyte repletion prn. - tele monitoring - metoprolol.
[2016-10-21] MEDS ORDERED: LORAZEPAM CARPU-JECT 2 MG/ML DISP.SYRIN IVPUSH PRN (11:53)
--- NOTE | 2016-10-21 12:03 | PN ---
Teaching Attending Note Name of Resident: Katy Pinto ATTENDING PHYSICIAN STATEMENT I saw and evaluated the patient. I reviewed the resident's note and discussed the case with the resident. I agree with the resident's findings and plan as documented. SUBJECTIVE:currently asymptomatic. denies CP, SOB,fever, chills, N/V/C/D, abdominal pain OBJECTIVE: Last Vital Signs Temp Pulse Resp BP Pulse Ox 98.3 F 68 19 131/87 93 L 10/21/16 10:00 10/21/16 10:10/21/16 10:00 10/21/16 10:10/21/16 09:00 General lethargic but easily arrousable. A&Ox2 (self and location) CV S1 S2 RRR no murmur/rub/gallop Lungs CTA B/L no wheezing/rales/rhonchi Abdomen soft NT/ND ASSESSMENT AND PLAN: 86yo M with PMH CAD s/p stents, HTN, BPH, dementia/Alzheimer presented to the ER and was admitted for further evaluation of their emergent condition 1. Sepsis due to UTI- due to urinary obstruction. arce placed by urology. afebrile 24H. Ceftriaxone day 3. maintain arce will need further workup with urology as outpatient.f/u Cx. ID and urology on board 2. Elevated tropnin- likely demand ischemia, Troponin peaked at 1.02. will cont to treat for NSTEMI. no plans for further ischemic workup at this time. cont heparin ggt. cardio on board. cont asa/plavix/betablocker 3. RASHEL- likely due to blockage. improved. avoid nephrotoxic medications. maintain arce 4. dementia- agitated in the evening and received ativan x1. will cont seroquel QHS, ativan prn. avoid giving haldol due to prolonged sedation after. cont home medications 5. hypokalemia- Kcl 40meq 6. DVT ppx- hep ggt
--- NOTE | 2016-10-21 13:56 | MSN ---
Progress Note (short form) - Note Progress Note: Saw and evaluated patient this AM. Patient was sleeping comfortably and in no apparent distress. Nurse stated that patient was confused and disoriented at 4: 30am overnight and stated that he wanted to leave. He attempted to remove his IV. Patient was given one dose of Ativan and then went to sleep. Patient denied F/C, N/V, abdominal pain, chest pain, shortness of breath, diarrhea, constipation. Patient's troponins went down from 1.02 to 0.78. Cardiology on board. Lead Tinner (Dr. Jessie Ward) believed that elevated Jesse were likely due to type II NSTEMI secondary to demand from patient's tachycardia and fever two days ago. Patient to be continued on NSTEMI protocol (Heparin drip, plavix, toprol, and aspirin). Patient's echo showed possible pEFHF, pt will need to f/u with wild life manager once discharged. Patient's pTT was elevated from 56.2 to 58.2 today. Patient's WBC trending down (16.8 yesterday to 10.3 today). Preliminary urine cultures have returned 20-30K CFU of Staphylococcus species. Will continue to treat sepsis secondary to UTI with IV Ceftriaxone (Day 3 of 5). Continue to monitor patient's labs and vitals. Current Medications Generic Name Dose Route Start Last Admin Trade Name Freq PRN Reason Stop Dose Admin Acetaminophen 650 mg 10/20/16 20:28 10/20/16 22:45 Tylenol - PO 650 mg Q4H PRN Administration FEVER OR PAIN Aspirin 81 mg 10/21/16 10:00 10/21/16 10:06 Ecotrin - PO 81 mg DAILY [place] Administration Atorvastatin Calcium 5 mg 10/20/16 22:00 10/20/16 22:41 Lipitor - PO 5 mg HS [place] Administration Cholecalciferol 1,000 unit 10/21/16 10:00 10/21/16 10:06 Vitamin D3 - PO 1,000 unit DAILY [place] Administration Clopidogrel Bisulfate 75 mg 10/21/16 10:00 10/21/16 10:06 Plavix - PO 75 mg DAILY [place] Administration Heparin Sodium (Porcine) 1,000 unit 10/20/16 20:28 Heparin - IVPUSH PRN PRN Heparin Heparin Sodium (Porcine) 5,000 unit 04/04/17 20:28 Heparin - IVPUSH PRN PRN Heparin Ceftriaxone Sodium 50 mls @ 100 mls/hr 10/20/16 22:00 10/20/16 22:42 Rocephin 1gm Ivpb (Pre-Docked) IVPB 100 mls/hr DAILY@2200 [place] Administration Heparin Sodium (Porcine) 25, 500 mls @ 20 mls/hr 10/20/16 20:28 10/21/16 09:06 000 unit/ Sodium Chloride IV 1,000 unit/hr TITR [place] Titration Protocol 1,000 UNIT/HR Lactobacillus Acidophilus 1 tab 10/21/16 10:00 10/21/16 10:05 Bacid - PO 1 tab DAILY [place] Administration Lorazepam 0.5 mg 10/21/16 11:53 Ativan Injection - IVPUSH Q6H PRN ANXIETY Metoprolol Succinate 25 mg 10/21/16 10:00 10/21/16 10:06 Toprol Xl - PO 25 mg DAILY [place] Administration Non-Formulary Medication 600 mg 10/21/16 10:00 Alpha Lipoic Acid [Alpha Lipoic Acid] PO DAILY [place] Non-Formulary Medication 1,000 mg 10/21/16 10:00 Keldron-3 Fatty Acids [Keldron-3] PO DAILY [place] Non-Formulary Medication 13.3 mg 10/21/16 10:00 Rivastigmine [Exelon] TD DAILY [place] Pantoprazole Sodium 40 mg 10/21/16 10:00 10/21/16 10:06 Protonix - PO 40 mg DAILY [place] Administration Quetiapine Fumarate 25 mg 10/20/16 22:00 10/20/16 22:40 Seroquel - PO 25 mg HS [place] Administration Vital Signs Period Temp Pulse Resp BP Sys/Yun Pulse Ox Last 24 Hr 97.4 F-99.8 F 59-105 14-19 94-149/50-95 93-97 PHYSICAL EXAM GENERAL: Alert, oriented to person and place. In no apparent distress EYES: PERRLA, EOMI, conjunctiva clear bilaterally ENT: Ears normal, nares patent, no signs of trauma NECK: Trachea midline, no JVD, no lymphadenopathy HEART: Regular rate, rhythm, +S1, S2, no murmurs, gallops LUNGS: Equal breath sounds bilaterally, no wheezes, rhonchi ABDOMEN: Soft, nontender, normoactive bowel sounds in all four quadrants MSK: 5/5 Muscle Strength grossly NEURO: Calm affect, water taxi driver intact, normal speech, gait not observed EXTREMITIES: 2+ pulses bilaterally, no edema, warm, well perfused Laboratory Results - last 24 hr 10/20/16 10/20/16 10/20/16 14:45 14:45 20:30 WBC RBC Hgb Hct MCV MCHC RDW Plt Count MPV Neutrophils % Lymphocytes % Monocytes % Eosinophils % Basophils % PTT (Actin FS) 56.2 H D Sodium Potassium Chloride Carbon Dioxide Anion Gap BUN Creatinine Creat Clearance w eGFR Random Glucose Calcium Total Bilirubin AST ALT Alkaline Phosphatase Creatine Kinase 764 H D CK-MB (CK-2) Rel Index Cancelled Troponin I 0.78 H* Total Protein Albumin 10/21/16 10/21/16 10/21/16 05:35 05:35 06:00 WBC 10.3 H D RBC 4.39 Hgb 11.5 L Hct 36.0 MCV 82.2 MCHC 31.9 L RDW 15.3 Plt Count 217 MPV 8.8 Neutrophils % 83.1 H Lymphocytes % 8.0 D Monocytes % 6.8 Eosinophils % 1.4 D Basophils % 0.7 PTT (Actin FS) 58.2 H Sodium 143 Potassium 3.3 L Chloride 110 H Carbon Dioxide 19 L Anion Gap 14 BUN 17 Creatinine 1.2 Creat Clearance w eGFR 57.54 Random Glucose 84 Calcium 8.0 L Total Bilirubin 0.4 D AST 44 H ALT 23 Alkaline Phosphatase 63 Creatine Kinase CK-MB (CK-2) Rel Index Troponin I Total Protein 5.4 L Albumin 2.5 L IMAGING: CXR (10/19/16 @13:23): Since 11/14/15, enlarged heart with sclerotic unfolded aorta , and tracheal deviation to the right. Increased markings at left base which could represent some focal atelectasis. CXR (10/20/16 @ 6:00): No significant interval change or acute lung disease is present ASSESSMENT AND PLAN 86 y/o M with PMHx of dementia, HTN, CAD, [place] (one year ago s/p 2 stents) admitted for sepsis secondary to UTI 1. Sepsis secondary to UTI -In ED received NS 2L, Vanc/Zosyn -Patient currently admitted med/surg -Preliminary urine culture returned 20-30K CFU of Staphylococcus -Continue to treat with IV Ceftriaxone (Day 3 of 5) -NS discontinued -WBC trending down (16.8 to 10.3) -Lactic acidosis has resolved (Highest was 3.3, down to 0.704) -ID on board -Continue to monitor labs, vitals 2. Rising troponin levels - r/o ACS -History of CAD s/p two stents -Troponin decreased from 1.02 to 0.78 -Cardiology on board -Per Lead Tinner, Dr. Ward. Elevated troponin likely due to type II NSTEMI secondary to demand from patient's tachycardia and fever two days ago. Patient to be continued on NSTEMI protocol (Heparin drip, plavix, toprol, and aspirin). -Echo shows possible pEFHF, pt will need f/u with wild life manager once discharged -Patient's pTT elevated from 56.2 to 58.2, continue to monitor -Continue to monitor vitals, labs 3. Dementia -Pt agitated at 4:30 this AM and given one dose of Ativan -Will continue Ativan PRN -Continue Rivastigmine, Seroquel -Continue to monitor patient tonight for change in mentation 4. Urinary retention secondary to BPH -Urology on board -Massey inserted / -Per urology, patient will need elective circumcision once discharged 5. RASHEL secondary to hypovolemia -Improved -Creatinine back at baseline -NS discontinued -Continue to monitor labs 6. HTN -Continue Toprol 7. DVT Px -Heparin drip Dispo: Continue to monitor pt in med/surg
--- NOTE | 2016-10-21 17:04 | PN ---
Addendum entered and electronically signed by Katy Pinto RES 10/21/16 18 :33: CALL MD when re scan bladder to update on residual; if patient is still retaining urine >300c discuss with Rogers need for repeat arce Addendum entered and electronically signed by Katy Pinto RES 10/21/16 17 :38: arce d/c'd this am; according to nurse; she is uncertain patient void; I d/c'd IVF yesterday due to normotension and oral intake; as per nurse he has not been drinking that much. Bladder scan only revealed 250cc; I ordered 250NS bolus due to poor oral intake and lethargy; repeat bladder scan in few hours after bolus; if >700 call md Original Note: Physical Exam: SUBJECTIVE: Patient seen and examined first encounter at 7 am patient resting sleeping comfortablly, stable vital. Second encounter patient awake, asked about surroundings, claims he was "in [place]". Overnight patient was somewhat agitated according to nurses, was given 1mg of Ativan around 4am this morning. OBJECTIVE: Vital Signs Period Temp Pulse Resp BP Sys/Yun Pulse Ox Last 24 Hr 97.4 F-99.8 F 59-105 16-24 94-149/50-95 93-97 GENERAL: The patient is arousable, awake; HEAD: Normal with no signs of trauma. EYES: PERRL, extraocular movements intact, sclera anicteric, conjunctiva clear. No ptosis. ENT: Ears normal, nares patent, oropharynx clear without exudates, moist mucous membranes. NECK: Trachea midline, full range of motion, supple. LUNGS: Breath sounds equal, clear to auscultation bilaterally, no wheezes, no crackles, no accessory muscle use. HEART: Regular rate and rhythm, S1, S2 without murmur, rub or gallop. ABDOMEN: Soft, nontender, nondistended, normoactive bowel sounds, no guarding, no rebound, no hepatosplenomegaly, no masses. EXTREMITIES: 2+ pulses, warm, well-perfused, no edema. NEUROLOGICAL: hx of dementia; at baseline PSYCH: Normal mood, normal affect. SKIN: Warm, dry, normal turgor, no rashes or lesions noted Laboratory Results - last 24 hr 10/20/16 10/20/1617 14:45 14:45 20:30 WBC RBC Hgb Hct MCV MCHC RDW Plt Count MPV Neutrophils % Lymphocytes % Monocytes % Eosinophils % Basophils % PTT (Actin FS) 56.2 H D Sodium Potassium Chloride Carbon Dioxide Anion Gap BUN Creatinine Creat Clearance w eGFR Random Glucose Calcium Total Bilirubin AST ALT Alkaline Phosphatase Creatine Kinase 764 H D CK-MB (CK-2) Rel Index Cancelled Troponin I 0.78 H* Total Protein Albumin Stool Occult Blood 10/21/16 10/21/16 10/21/16 05:35 05:35 06:00 WBC 10.3 H D RBC 4.39 Hgb 11.5 L Hct 36.0 MCV 82.2 MCHC 31.9 L RDW 15.3 Plt Count 217 MPV 8.8 Neutrophils % 83.1 H Lymphocytes % 8.0 D Monocytes % 6.8 Eosinophils % 1.4 D Basophils % 0.7 PTT (Actin FS) 58.2 H Sodium 143 Potassium 3.3 L Chloride 110 H Carbon Dioxide 19 L Anion Gap 14 BUN 17 Creatinine 1.2 Creat Clearance w eGFR 57.54 Random Glucose 84 Calcium 8.0 L Total Bilirubin 0.4 D AST 44 H ALT 23 Alkaline Phosphatase 63 Creatine Kinase CK-MB (CK-2) Rel Index Troponin I Total Protein 5.4 L Albumin 2.5 L Stool Occult Blood 10/21/16 14:20 WBC RBC Hgb Hct MCV MCHC RDW Plt Count MPV Neutrophils % Lymphocytes % Monocytes % Eosinophils % Basophils % PTT (Actin FS) Sodium Potassium Chloride Carbon Dioxide Anion Gap BUN Creatinine Creat Clearance w eGFR Random Glucose Calcium Total Bilirubin AST ALT Alkaline Phosphatase Creatine Kinase CK-MB (CK-2) Rel Index Troponin I Total Protein Albumin Stool Occult Blood Negative Active Medications Generic Name Dose Route Start Last Admin Trade Name Freq PRN Reason Stop Dose Admin Acetaminophen 650 mg 10/20/16 20:28 10/20/16 22:45 Tylenol - PO 650 mg Q4H PRN Administration FEVER OR PAIN Aspirin 81 mg 10/21/16 10:00 10/21/16 10:06 Ecotrin - PO 81 mg DAILY [facility] Administration Atorvastatin Calcium 5 mg 10/20/16 22:00 10/20/16 22:41 Lipitor - PO 5 mg HS [facility] Administration Cholecalciferol 1,000 unit 10/21/16 10:00 10/21/16 10:06 Vitamin D3 - PO 1,000 unit DAILY [facility] Administration Clopidogrel Bisulfate 75 mg 10/21/16 10:00 10/21/16 10:06 Plavix - PO 75 mg DAILY [facility] Administration Heparin Sodium (Porcine) 1,000 unit 10/20/16 20:28 Heparin - IVPUSH PRN PRN Heparin Heparin Sodium (Porcine) 5,000 unit 10/20/16 20:28 Heparin - IVPUSH PRN PRN Heparin Ceftriaxone Sodium 50 mls @ 100 mls/hr 10/20/16 22:00 10/20/16 22:42 Rocephin 1gm Ivpb (Pre-Docked) IVPB 100 mls/hr DAILY@2200 [facility] Administration Heparin Sodium (Porcine) 25, 500 mls @ 20 mls/hr 10/20/16 20:28 10/21/16 09:06 000 unit/ Sodium Chloride IV 1,000 unit/hr TITR [facility] Titration Protocol 1,000 UNIT/HR Lactobacillus Acidophilus 1 tab 10/21/16 10:00 10/21/16 10:05 Bacid - PO 1 tab DAILY [facility] Administration Lorazepam 0.5 mg 10/21/16 11:53 Ativan Injection - IVPUSH Q6H PRN ANXIETY Metoprolol Succinate 25 mg 10/21/16 10:00 10/21/16 10:06 Toprol Xl - PO 25 mg DAILY [facility] Administration Non-Formulary Medication 600 mg 10/21/16 10:00 Alpha Lipoic Acid [Alpha Lipoic Acid] PO DAILY [facility] Non-Formulary Medication 1,000 mg 10/21/16 10:00 [place]-3 Fatty Acids [[place]-3] PO DAILY [facility] Non-Formulary Medication 13.3 mg 10/21/16 10:00 Rivastigmine [Exelon] TD DAILY [facility] Non-Formulary Medication 1 each 10/21/16 16:30 Patient's Own Med PO DAILY [facility] Non-Formulary Medication 1 each 10/21/16 16:30 Patient's Own Med PO DAILY [facility] Pantoprazole Sodium 40 mg 10/21/16 10:00 10/21/16 10:06 Protonix - PO 40 mg DAILY [facility] Administration Quetiapine Fumarate 25 mg 10/20/16 22:00 10/20/16 22:40 Seroquel - PO 25 mg HS [facility] Administration ASSESSMENT/PLAN: Microbiology 10/19/16 13:00 Urine - Urine Clean Catch Urine Culture - Preliminary Staphylococcus Species ASSESSMENT/PLAN: This is n 86 year old male with a past medical history of htn, coronary artery disease (s/p drug eluting stents x2 last year), chronic urinary retention, BPH, dementia, presented with altered mental stats, s/p outpatient treatment failure of urinary tract infection. #Sepsis secondary to complicated urinary tract infection: improving -wbc trending down, lactic acid wnl; off IVF; normotensive; afebrile; vitals wnl -urine culture: growing staph epidermidis species -currently on ceftriaxone 1gm IVPB daily (day 3) #Altered mental status: secondary to sepsis, hx dementia, metablolic encephalopathy :improved,at baseline -baseline demetia with sun downing; as per family is usually pleasant, non violent -seroquele 25m gHS -ativan 0.25mg on a one time basis due to increased lethargy after medication -cont Rivastigmine (Exelon) ; used for cognition enhancing -monitor labs for electrolytes abnormalities -Avoid haldol; worsens delirium in this patient #elevated troponins: most likely secondary to demand ischemia during sepsis -troponin->0.4 ->1.02 ; continue to trend until peak -heparin gtt as per NSTEMI protocol continue until until completed 48hrs -continue dual anticoagulation therapy; asa 81mg po qd and plavix 75mg po qd -continue Lipitor 5mg po HS -metoprolol succinate 25mg po qd -echocardiogram EF 65; LV normal; LVSF wnl; no wall motion abnormalities; LA dilattion mils; mild MR, TR, ; mild AR #elevated ALT; most likely related to sepsis; trend #Hypertension: -cont metoprolol #chronic urinary retention/BPH: -arce d/c'd today -monitor U/O -renal US unremarkable on 10/19/16 -as per urology; patient will need circumcision as outpatient FEN: Fluids: d/c due to stable vital po intake Electrolytes: corrected calcium 9.2 Diet: cardiac VTE: oh heparin drip GI prophylaxis: protonix Disposition: PT; heparin drip until tomorrow afternoon. nurse to be aware sun downer: will try to leave bed; please have bed alarm on ; please keep close eye on patient ; family is very concerned that he will try to leave; PLEASE ONLY GIVEN PATIENT LOWEST DOSE OF ATIVAN NECESSARY, 0.25MG IF POSSIBLE FOR AGITATION; daughter Molly:[phone] son in law- [phone] Problem List - Problems (1) Sepsis Code(s): A41.9 - SEPSIS, UNSPECIFIED ORGANISM (2) UTI (urinary tract infection) Code(s): N39.0 - URINARY TRACT INFECTION, SITE NOT SPECIFIED (3) Abnormal transaminases Code(s): R74.0 - NONSPEC ELEV OF LEVELS OF TRANSAMNS & LACTIC ACID DEHYDRGNSE (4) Urinary retention due to benign prostatic hyperplasia Code(s): N40.1 - BENIGN PROSTATIC HYPERPLASIA WITH LOWER URINARY TRACT SYMP R33.8 - OTHER RETENTION OF URINE (5) Urinary retention with incomplete bladder emptying Code(s): R33.9 - RETENTION OF URINE, UNSPECIFIED (6) NSTEMI (non-ST elevated myocardial infarction) Code(s): I21.4 - NON-ST ELEVATION (NSTEMI) MYOCARDIAL INFARCTION (7) Demand ischemia Code(s): I24.8 - OTHER FORMS OF ACUTE ISCHEMIC HEART DISEASE (8) Dementia Code(s): F03.90 - UNSPECIFIED DEMENTIA WITHOUT BEHAVIORAL DISTURBANCE Visit type - Emergency Visit Emergency Visit: Yes ED Registration Date: 10/19/16 Care time: The patient presented to the Emergency Department on the above date and was hospitalized for further evaluation of their emergent condition. - New Patient This patient is new to me today: No - Critical Care Critical Care patient: No
[2016-10-21] MEDS ORDERED: SODIUM CHLORIDE 250 ML IV STA (17:36)
[2016-10-21] MEDS: RIVASTIGMINE 13.3 MG TD SCH (18:52)
[2016-10-21] MEDS: NAMENDA 28 MG PO SCH (18:52)
--- NOTE | 2016-10-21 21:23 | PN ---
Progress Note, Physician History of Present Illness: Awake, responsive Massey removed reports pt trying to get OOB to void Temps down- afebrile WBC improved - Current Medication List Current Medications: Active Medications Acetaminophen (Tylenol -) 650 mg PO Q4H PRN PRN Reason: FEVER OR PAIN Last Admin: 10/20/16 22:45 Dose: 650 mg Aspirin (Ecotrin -) 81 mg PO DAILY [facility] Last Admin: 10/21/16 10:06 Dose: 81 mg Atorvastatin Calcium (Lipitor -) 5 mg PO HS [facility] Last Admin: 10/20/16 22:41 Dose: 5 mg Cholecalciferol (Vitamin D3 -) 1,000 unit PO DAILY [facility] Last Admin: 10/21/16 10:06 Dose: 1,000 unit Clopidogrel Bisulfate (Plavix -) 75 mg PO DAILY [facility] Last Admin: 10/21/16 10:06 Dose: 75 mg Heparin Sodium (Porcine) (Heparin -) 1,000 unit IVPUSH PRN PRN PRN Reason: Heparin Heparin Sodium (Porcine) (Heparin -) 5,000 unit IVPUSH PRN PRN PRN Reason: Heparin Ceftriaxone Sodium (Rocephin 1gm Ivpb (Pre-Docked)) 50 mls @ 100 mls/hr IVPB DAILY@2200 [facility] Last Admin: 10/20/16 22:42 Dose: 100 mls/hr Heparin Sodium (Porcine) 25, (000 unit/ Sodium Chloride) 500 mls @ 20 mls/hr IV TITR [facility]; 1,000 UNIT/HR PRN Reason: Protocol Last Titration: 10/21/16 09:06 Dose: 1,000 unit/hr Lactobacillus Acidophilus (Bacid -) 1 tab PO DAILY [facility] Last Admin: 10/21/16 10:05 Dose: 1 tab Metoprolol Succinate (Toprol Xl -) 25 mg PO DAILY [facility] Last Admin: 10/21/16 10:06 Dose: 25 mg Non-Formulary Medication (Alpha Lipoic Acid [Alpha Lipoic Acid]) 600 mg PO DAILY [facility] Non-Formulary Medication ([place]-3 Fatty Acids [[place]-3]) 1,000 mg PO DAILY [facility] Non-Formulary Medication (Rivastigmine [Exelon]) 13.3 mg TD DAILY [facility] Last Admin: 10/21/16 18:52 Dose: 13.3 mg Non-Formulary Med ( Namenda [Memantine] Xr 28mg Cap) 1 each PO DAILY [facility] Last Admin: 10/21/16 18:52 Dose: 1 each Pantoprazole Sodium (Protonix -) 40 mg PO DAILY [facility] Last Admin: 10/21/16 10:06 Dose: 40 mg Quetiapine Fumarate (Seroquel -) 25 mg PO HS [facility] Last Admin: 10/20/16 22:40 Dose: 25 mg - Objective Vital Signs: Vital Signs Temperature 98.3 F 10/21/16 18:18 Pulse Rate 106 H 10/21/16 18:18 Respiratory Rate 20 10/21/16 18:18 Blood Pressure 163/66 10/21/16 18:18 O2 Sat by Pulse Oximetry (%) 93 L 10/21/16 09:00 Constitutional: Yes: No Distress Eyes: Yes: Conjunctiva Clear Cardiovascular: Yes: Regular Rate and Rhythm, S1, S2 Respiratory: Yes: CTA Bilaterally Gastrointestinal: Yes: Normal Bowel Sounds, Soft Labs: CBC, BMP 10/21/16 06:00 10/21/16 05:35 INR, PTT INR 1.37 (0.82-1.09) H 10/20/16 05:05 Assessment/Plan UTI/Sepsis secondary to UTI S/P acute urinary retention Toxic metabolic encephalopathy/ OBS Continue ceftriaxone
[2016-10-21] MEDS: ATORVASTATIN CA 10 MG TABLET (FP) PO SCH (22:25)
[2016-10-21] MEDS: CEFTRIAXONE 50 ML IVPB SCH (22:25)
[2016-10-21] MEDS: HEPARIN - 25,000 UNIT in SODIUM CHLORIDE 495 ML IV SCH (22:30)
[2016-10-21] MEDS: QUEtiapine FUMARATE 25 MG TABLET (FP) PO SCH (22:30)
[2016-10-22 07:01] LABS: BASOPHIL 0.5 % (0-2.0); EOSINOPHIL 1.8 % (0-4.5); MCH 26.7 pg (25.7-33.7); MCHC 32.9 g/dl (32.0-35.9); MEAN CELL VOLUME 81.2 fl (80-96); MEAN PLT VOLUME 8.9 fl (7.5-11.1); NEUTROPHILS 81.2 % (42.8-82.8); PLATELET COUNT 231 K/MM3 (134-434); RDW 15.4 % (11.9-15.9); WHITE BLOOD COUNT 9.2 K/mm3 (4.0-10.0)
[2016-10-22 07:03] LABS: ALBUMIN 2.7 g/dl (3.4-5.0); BILIRUBIN,TOTAL 0.4 mg/dL (0.2-1.0); CALCIUM 8.2 mg/dL (8.5-10.1); CREATININE 1.2 mg/dL (0.7-1.3); TOT PROT 6.1 g/dl (6.4-8.2)
--- NOTE | 2016-10-22 09:09 | PN ---
Teaching Attending Note Name of Resident: Katy Pinto ATTENDING PHYSICIAN STATEMENT I saw and evaluated the patient. I reviewed the resident's note and discussed the case with the resident. I agree with the resident's findings and plan as documented. SUBJECTIVE:currently asymptomatic. denies CP, SOB,fever, chills, N/V/C/D, dysuria, hematuria, difficulty urinating OBJECTIVE: Last Vital Signs Temp Pulse Resp BP Pulse Ox 98.1 F 101 H 20 133/70 94 L 10/22/16 06:00 10/22/16 06:00 10/22/16 06:00 10/22/16 06:00 10/21/16 21:00 General NAD, alert, A&Ox2 (self and location) CV S1 S2 RRR no murmur/rub/gallop Lungs CTA B/L no wheezing/rales/rhonchi Abdomen soft NT/ND no suprapubic tenderness, slight suprapubic distention ASSESSMENT AND PLAN: 86yo M with PMH CAD s/p stents, HTN, BPH, dementia/Alzheimer presented to the ER and was admitted for further evaluation of their emergent condition 1. Sepsis due to UTI- due to urinary obstruction. arce removed yesterday as daughter was persistent in having it removed and do voiding trial. pt was able to make minimal UOP with large residual. bladder scan this AM >500 cc. daughter called and notified refuses for arce to placed at this time. explained risks of developing infection that can lead to sepsis and organ damage. on ceftriaxone day 4 today. will d/c on keflex for additional day. will need close monitoring with urology and follow up for further intervention. 2. Elevated tropnin- likely demand ischemia, Troponin peaked at 1.02. today will complete 48H on heparin ggt. no plan for ischemic eval. cont asa/plavix/ betablocker 3. RASHEL- likely due to blockage. improved. avoid nephrotoxic medications. 4. dementia- not agitated in the evening. did not receive seroquel. will hold at this time. follow up with PMD for further management. would recommend against haldol and ativan due to prolonged effects of sedation 5. hypokalemia- Kcl 40meq 6. DVT ppx- hep ggt to be d/c once reaches 48H 7. d/c planning today. high risk for pt returning with similar presentation as appears family will likely be resistant to following instruction
[2016-10-22] MEDS ORDERED: POTASSIUM CHLORIDE ORAL LIQUID 20 MEQ/15 ML PO ONE (09:15)
[2016-10-22] MEDS: CEFTRIAXONE 50 ML IVPB SCH (09:55)
[2016-10-22] MEDS: NAMENDA 28 MG PO SCH (09:56)
[2016-10-22] MEDS: METOPROLOL SUCCINATE 25 MG TAB.SR.24H (FP) PO SCH (09:56)
[2016-10-22] MEDS: LACTOBACILLUS ACIDOPHILUS 1 EACH TAB (FP) PO SCH (09:56)
[2016-10-22] MEDS: ASPIRIN COATED 81 MG TABLET.EC PO SCH (09:56)
[2016-10-22] MEDS: PANTOPRAZOLE 40 MG TABLET (FP) PO SCH (09:56)
[2016-10-22] MEDS: RIVASTIGMINE 13.3 MG TD SCH (09:56)
[2016-10-22] MEDS: CLOPIDOGREL BISULFATE 75 MG TABLET (FP) PO SCH (09:56)
[2016-10-22] MEDS: CHOLECALCIFEROL (VITAMIN D3) 1,000 UNIT TABLET (FP) PO SCH (10:04)
--- NOTE | 2016-10-22 10:16 | PN ---
Progress Note (short form) - Note Progress Note: arce d/cd yesterday voiding frequent small amount no suprapubic pain pvr approx 500cc will need circumcision as outpt Problem List - Problems (1) Urinary retention Code(s): R33.9 - RETENTION OF URINE, UNSPECIFIED
--- NOTE | 2016-10-22 11:44 | PN ---
Progress Note (short form) - Note Progress Note: s: no cp sob palps dizzy o: Vital Signs Period Temp Pulse Resp BP Sys/Yun Pulse Ox Last 24 Hr 98.1 F-99.4 F 80-106 18-24 115-163/63-88 94 nad no jvd rrr s1s2 no mrg scattered rhonchi awake, appropriate abd nd pos bs no le e/c/c no jaundice diaphoresis Current Medications Generic Name Dose Route Start Last Admin Trade Name Freq PRN Reason Stop Dose Admin Acetaminophen 650 mg 10/20/16 20:28 10/20/16 22:45 Tylenol - PO 650 mg Q4H PRN Administration FEVER OR PAIN Aspirin 81 mg 10/21/16 10:00 10/22/16 09:56 Ecotrin - PO 81 mg DAILY [facility] Administration Atorvastatin Calcium 5 mg 10/20/16 22:00 10/21/16 22:25 Lipitor - PO 5 mg HS [facility] Administration Cholecalciferol 1,000 unit 10/21/16 10:00 10/22/16 10:04 Vitamin D3 - PO 1,000 unit DAILY [facility] Administration Clopidogrel Bisulfate 75 mg 10/21/16 10:00 10/22/16 09:56 Plavix - PO 75 mg DAILY [facility] Administration Heparin Sodium (Porcine) 1,000 unit 10/20/16 20:28 Heparin - IVPUSH PRN PRN Heparin Heparin Sodium (Porcine) 5,000 unit 10/20/16 20:28 Heparin - IVPUSH PRN PRN Heparin Ceftriaxone Sodium 50 mls @ 100 mls/hr 10/20/16 22:00 10/22/16 09:55 Rocephin 1gm Ivpb (Pre-Docked) IVPB 100 mls/hr DAILY@2200 [facility] Administration Heparin Sodium (Porcine) 25, 500 mls @ 20 mls/hr 10/20/16 20:28 10/21/16 22:30 000 unit/ Sodium Chloride IV Not Given TITR [facility] Protocol 1,000 UNIT/HR Lactobacillus Acidophilus 1 tab 10/21/16 10:00 10/22/16 09:56 Bacid - PO 1 tab DAILY [facility] Administration Metoprolol Succinate 25 mg 10/21/16 10:00 10/22/16 09:56 Toprol Xl - PO 25 mg DAILY [facility] Administration Non-Formulary Medication 600 mg 10/21/16 10:00 Alpha Lipoic Acid [Alpha Lipoic Acid] PO DAILY [facility] Non-Formulary Medication 1,000 mg 10/21/16 10:00 [place]-3 Fatty Acids [[place]-3] PO DAILY [facility] Non-Formulary Medication 13.3 mg 10/21/16 18:00 10/22/16 09:56 Rivastigmine [Exelon] TD 13.3 mg DAILY [facility] Administration Non-Formulary Med ( 1 each 10/21/16 18:00 10/22/16 09:56 Namenda [Memantine] PO 1 each Xr 28mg Cap) DAILY [facility] Administration Pantoprazole Sodium 40 mg 10/21/16 10:00 10/22/16 09:56 Protonix - PO 40 mg DAILY [facility] Administration Quetiapine Fumarate 25 mg 10/20/16 22:00 10/21/16 22:30 Seroquel - PO Not Given HS [facility] CBC, BMP 10/22/16 05:35 10/22/16 05:35 Tele: sr, PVC's, PACs, brief atrial runs EKG 1: sinus tach 125 bpm. with pvc. anterolateral twi and std. EKG 2: Sinus tach with pvc pac. subtle ST sagging in anterolateral leads. No acute ischemic changes echo 10/2016: mild conc lvh, nl lv, nl rv, mild lae, mild mr, mild tr, mild ar, rvsp 30-40 A/P 86 yo with h/o CAD s/p NSTEMI and TANNER 10/2015, HTN, bph, alzheimer's who presents with sepsis Sepsis, uti - s/p IVF and abx. has not required pressors. cont abx per ID CAD with prior NSTEMI/TANNER - CAD (3vd) NSTEMI s/p TANNER to OM1 and RPDA 10/2015. 50-60% residual mLAD and Ramus - Last TANNER almost one year ago was going to stop plavix this month. Currently with enzyme elevation --> would con't DAPT for now. Low threshold to hold if evidence of bleeding. OK to hold plavix if needed for intervention - Small elevation in CE's. There is a subtle rise and fall pattern of CE's with ekg changes, likely Type II nstemi 2/2 demand from tachycardia/fever/ sepsis. Will treat per NSTEMI protocol with heparin drip, asa, plavix. Can dc hep gtt after 48 hours. - EKG abnormalities improved at lower heart rate, consistent with demand ischemia. - echo with no WMA's, unremarkable - cont med management for cad with bb, statin, dapt HTN - was hypotensive. now stable after IVF, abx. Ischemic cardiomyopathy (40%) with mild-mod ischemic MR -->now normal lvef - Improvement in EF 04/2016 --> Bp had been too low as outpatient for lisinopril. metoprolol now resumed in setting of nstemi, tolerating so far. Frequent PVC's/occ NSVT -normal lvef -electrolyte repletion prn. -cont metoprolol.
--- NOTE | 2016-10-22 13:19 | PN ---
Physical Exam: SUBJECTIVE: Patient seen and examined, alert awake and oriented this morning. PVCs and episodes of tachycardia overnight. Denies chest pain, sob, dizziness. Heparin drip d/c'd. Patient taken to OR this afternoon for circumcision/eval for arce placement . OBJECTIVE: Vital Signs Period Temp Pulse Resp BP Sys/Yun Pulse Ox Last 24 Hr 98.1 F-99.4 F 80-106 18-24 115-163/63-88 94-94 GENERAL: The patient is awake, alert, and fully oriented, in no acute distress. HEAD: Normal with no signs of trauma. LUNGS: Breath sounds equal, clear to auscultation bilaterally, no wheezes, no crackles, no accessory muscle use. HEART: Regular rate and rhythm, S1, S2 without murmur, rub or gallop. ABDOMEN: Soft, nontender, nondistended, normoactive bowel sounds, no guarding, no rebound, no hepatosplenomegaly, no masses. EXTREMITIES: 2+ pulses, warm, well-perfused, no edema. NEUROLOGICAL: Cranial nerves II through XII grossly intact. Normal speech, gait not observed. PSYCH: Normal mood, normal affect. SKIN: Warm, dry, normal turgor, no rashes or lesions noted Laboratory Results - last 24 hr 10/21/16 10/21/16 10/22/16 14:20 20:00 01:00 WBC RBC Hgb Hct MCV MCHC RDW Plt Count MPV Neutrophils % Lymphocytes % Monocytes % Eosinophils % Basophils % PTT (Actin FS) Sodium Potassium Chloride Carbon Dioxide Anion Gap BUN Creatinine Creat Clearance w eGFR Random Glucose Calcium Total Bilirubin AST ALT Alkaline Phosphatase Troponin I 0.41 H D Total Protein Albumin Stool Occult Blood Negative Negative 10/22/16 10/22/16 10/22/16 05:35 05:35 05:35 WBC 9.2 RBC 4.40 Hgb 11.8 Hct 35.8 MCV 81.2 MCHC 32.9 RDW 15.4 Plt Count 231 MPV 8.9 Neutrophils % 81.2 Lymphocytes % 9.4 Monocytes % 7.1 Eosinophils % 1.8 Basophils % 0.5 PTT (Actin FS) 51.4 H Sodium 144 Potassium 3.8 Chloride 112 H Carbon Dioxide 20 L Anion Gap 12 BUN 17 Creatinine 1.2 Creat Clearance w eGFR 57.54 Random Glucose 89 Calcium 8.2 L Total Bilirubin 0.4 AST 37 ALT 26 Alkaline Phosphatase 68 Troponin I Total Protein 6.1 L Albumin 2.7 L Stool Occult Blood 10/22/16 08:10 WBC RBC Hgb Hct MCV MCHC RDW Plt Count MPV Neutrophils % Lymphocytes % Monocytes % Eosinophils % Basophils % PTT (Actin FS) Sodium Potassium Chloride Carbon Dioxide Anion Gap BUN Creatinine Creat Clearance w eGFR Random Glucose Calcium Total Bilirubin AST ALT Alkaline Phosphatase Troponin I 0.30 H Total Protein Albumin Stool Occult Blood Active Medications Generic Name Dose Route Start Last Admin Trade Name Freq PRN Reason Stop Dose Admin Acetaminophen 650 mg 10/20/16 20:28 10/20/16 22:45 Tylenol - PO 650 mg Q4H PRN Administration FEVER OR PAIN Atorvastatin Calcium 5 mg 10/20/16 22:00 10/21/16 22:25 Lipitor - PO 5 mg HS [place] Administration Cholecalciferol 1,000 unit 10/21/16 10:00 10/22/16 10:04 Vitamin D3 - PO 1,000 unit DAILY [place] Administration Clopidogrel Bisulfate 75 mg 10/21/16 10:00 10/22/16 09:56 Plavix - PO 75 mg DAILY [place] Administration Ceftriaxone Sodium 50 mls @ 100 mls/hr 10/20/16 22:00 10/22/16 09:55 Rocephin 1gm Ivpb (Pre-Docked) IVPB 100 mls/hr DAILY@2200 [place] Administration Lactobacillus Acidophilus 1 tab 10/21/16 10:00 10/22/16 09:56 Bacid - PO 1 tab DAILY [place] Administration Metoprolol Succinate 25 mg 10/21/16 10:00 10/22/16 09:56 Toprol Xl - PO 25 mg DAILY [place] Administration Non-Formulary Medication 600 mg 10/21/16 10:00 Alpha Lipoic Acid [Alpha Lipoic Acid] PO DAILY [place] Non-Formulary Medication 1,000 mg 10/21/16 10:00 Casco-3 Fatty Acids [Casco-3] PO DAILY [place] Non-Formulary Medication 13.3 mg 10/21/16 18:00 10/22/16 09:56 Rivastigmine [Exelon] TD 13.3 mg DAILY [place] Administration Non-Formulary Med ( 1 each 10/21/16 18:00 10/22/16 09:56 Namenda [Memantine] PO 1 each Xr 28mg Cap) DAILY [place] Administration Pantoprazole Sodium 40 mg 10/21/16 10:00 10/22/16 09:56 Protonix - PO 40 mg DAILY [place] Administration Quetiapine Fumarate 25 mg 10/20/16 22:00 10/21/16 22:30 Seroquel - PO Not Given HS [place] ASSESSMENT/PLAN: ASSESSMENT/PLAN: Microbiology 10/19/16 13:00 Urine - Urine Clean Catch Urine Culture - Preliminary Staphylococcus Species ASSESSMENT/PLAN: This is n 86 year old male with a past medical history of htn, coronary artery disease (s/p drug eluting stents x2 last year), chronic urinary retention, BPH, dementia, presented with altered mental stats, s/p outpatient treatment failure of urinary tract infection. #Sepsis secondary to complicated urinary tract infection: improving -wbc wnl, lactic acid wnl; off IVF; normotensive; afebrile; vitals wnl -urine culture: + staph epidermidis species -currently on ceftriaxone 1gm IVPB daily (day 4) #Altered mental status: secondary to sepsis, hx dementia, metablolic encephalopathy :improved,at baseline: no events overnight -baseline dementia with sun downing; as per family is usually pleasant, non violent -seroquele 25m gHS -ativan 0.25mg on a one time basis due to increased lethargy after medication -cont Rivastigmine (Exelon) ; used for cognition enhancing -monitor labs for electrolytes abnormalities -Avoid haldol; worsens delirium in this patient #elevated troponins: most likely secondary to demand ischemia during sepsis : resolving -troponin->0.4 ->1.02 ; -heparin gtt as per NSTEMI protocol continue until until completed 48hrs -continue dual anticoagulation therapy; asa 81mg po qd and plavix 75mg po qd -continue Lipitor 5mg po HS -metoprolol succinate 25mg po qd -echocardiogram EF 65; LV normal; LVSF wnl; no wall motion abnormalities; LA dilattion mils; mild MR, TR, ; mild AR #elevated ALT; most likely related to sepsis; trend #Hypertension: -cont metoprolol #chronic urinary retention/BPH: being taking to OR today for circumcision -arce d/c'd yeserday as per family; minimal U/O: 300ml -renal US unremarkable on 10/19/16 -Seen by Dr. Mccloud today going to OR for circumcision FEN: Fluids: d/c Electrolytes: corrected calcium 9.2 Diet:npo VTE: oh heparin drip GI prophylaxis: protonix Disposition: PT; d/c heparin drip today; OR nurse to be aware sun downer: will try to leave bed; please have bed alarm on ; please keep close eye on patient ; family is very concerned that he will try to leave; PLEASE ONLY GIVEN PATIENT LOWEST DOSE OF ATIVAN NECESSARY, 0.25MG IF POSSIBLE FOR AGITATION; daughter Molly:[phone] son in law- [phone] Problem List - Problems (1) Sepsis Code(s): A41.9 - SEPSIS, UNSPECIFIED ORGANISM (2) UTI (urinary tract infection) Code(s): N39.0 - URINARY TRACT INFECTION, SITE NOT SPECIFIED (3) Abnormal transaminases Code(s): R74.0 - NONSPEC ELEV OF LEVELS OF TRANSAMNS & LACTIC ACID DEHYDRGNSE (4) Urinary retention due to benign prostatic hyperplasia Code(s): N40.1 - BENIGN PROSTATIC HYPERPLASIA WITH LOWER URINARY TRACT SYMP R33.8 - OTHER RETENTION OF URINE (5) Urinary retention with incomplete bladder emptying Code(s): R33.9 - RETENTION OF URINE, UNSPECIFIED (6) NSTEMI (non-ST elevated myocardial infarction) Code(s): I21.4 - NON-ST ELEVATION (NSTEMI) MYOCARDIAL INFARCTION (7) Demand ischemia Code(s): I24.8 - OTHER FORMS OF ACUTE ISCHEMIC HEART DISEASE (8) Dementia Code(s): F03.90 - UNSPECIFIED DEMENTIA WITHOUT BEHAVIORAL DISTURBANCE Visit type - Emergency Visit Emergency Visit: Yes ED Registration Date: 10/19/16 Care time: The patient presented to the Emergency Department on the above date and was hospitalized for further evaluation of their emergent condition. - New Patient This patient is new to me today: No - Critical Care Critical Care patient: No
[2016-10-22] MEDS ORDERED: MIDAZOLAM HCL 2 MG/2 ML SINGLE DOSE VIAL ONE (13:46)
[2016-10-22] MEDS ORDERED: BACITRACIN 15 GM TUBE TOPICAL OINTMENT ONE (14:10)
--- NOTE | 2016-10-22 14:10 | MSN ---
Progress Note (short form) - Note Progress Note: Saw and evaluated patient this AM. Patient slept comfortably and was in no apparent distress. Patient did fine overnight. Patient had trouble urinating and only voided 225 cc. Bladder scan done in AM showed over 500 cc. Patient denied F/C, N/V, chest pain, shortness of breath, abdominal pain, diarrhea, constipation. Heparin drip D/C. Patient will go to OR for circumcision due to patient's urinary retention Current Medications Generic Name Dose Route Start Last Admin Trade Name Freq PRN Reason Stop Dose Admin Acetaminophen 650 mg 10/20/16 20:28 10/20/16 22:45 Tylenol - PO 650 mg Q4H PRN Administration FEVER OR PAIN Atorvastatin Calcium 5 mg 10/20/16 22:00 10/21/16 22:25 Lipitor - PO 5 mg HS [place] Administration Cholecalciferol 1,000 unit 10/21/16 10:00 10/22/16 10:04 Vitamin D3 - PO 1,000 unit DAILY [place] Administration Clopidogrel Bisulfate 75 mg 10/21/16 10:00 10/22/16 09:56 Plavix - PO 75 mg DAILY [place] Administration Ceftriaxone Sodium 50 mls @ 100 mls/hr 10/20/16 22:00 10/22/16 09:55 Rocephin 1gm Ivpb (Pre-Docked) IVPB 100 mls/hr DAILY@2200 [place] Administration Lactobacillus Acidophilus 1 tab 10/21/16 10:00 10/22/16 09:56 Bacid - PO 1 tab DAILY [place] Administration Metoprolol Succinate 25 mg 10/21/16 10:00 10/22/16 09:56 Toprol Xl - PO 25 mg DAILY [place] Administration Non-Formulary Medication 600 mg 10/21/16 10:00 Alpha Lipoic Acid [Alpha Lipoic Acid] PO DAILY [place] Non-Formulary Medication 1,000 mg 10/21/16 10:00 Goldonna-3 Fatty Acids [Goldonna-3] PO DAILY [place] Non-Formulary Medication 13.3 mg 10/21/16 18:00 10/22/16 09:56 Rivastigmine [Exelon] TD 13.3 mg DAILY [place] Administration Non-Formulary Med ( 1 each 10/21/16 18:00 10/22/16 09:56 Namenda [Memantine] PO 1 each Xr 28mg Cap) DAILY [place] Administration Pantoprazole Sodium 40 mg 10/21/16 10:00 10/22/16 09:56 Protonix - PO 40 mg DAILY [place] Administration Quetiapine Fumarate 25 mg 10/20/16 22:00 10/21/16 22:30 Seroquel - PO Not Given HS [place] Vital Signs Period Temp Pulse Resp BP Sys/Yun Pulse Ox Last 24 Hr 98.1 F-99.4 F 80-106 18-24 115-163/63-88 94-94 PHYSICAL EXAM GENERAL: Alert, oriented to person and place. In no apparent distress EYES: PERRLA, EOMI, conjunctiva clear bilaterally ENT: Ears normal, nares patent, no signs of trauma NECK: Trachea midline, no JVD, no lymphadenopathy HEART: Regular rate, rhythm, +S1, S2, no murmurs, gallops LUNGS: Equal breath sounds bilaterally, no wheezes, rhonchi ABDOMEN: Soft, nontender, normoactive bowel sounds in all four quadrants MSK: 5/5 Muscle Strength grossly NEURO: Calm affect, edge stainer machine intact, normal speech, gait not observed EXTREMITIES: 2+ pulses bilaterally, no edema, warm, well perfused Laboratory Results - last 24 hr 10/21/16 10/21/16 10/22/16 14:20 20:00 01:00 WBC RBC Hgb Hct MCV MCHC RDW Plt Count MPV Neutrophils % Lymphocytes % Monocytes % Eosinophils % Basophils % PTT (Actin FS) Sodium Potassium Chloride Carbon Dioxide Anion Gap BUN Creatinine Creat Clearance w eGFR Random Glucose Calcium Total Bilirubin AST ALT Alkaline Phosphatase Troponin I 0.41 H D Total Protein Albumin Stool Occult Blood Negative Negative 10/22/16 10/22/16 10/22/16 05:35 05:35 05:35 WBC 9.2 RBC 4.40 Hgb 11.8 Hct 35.8 MCV 81.2 MCHC 32.9 RDW 15.4 Plt Count 231 MPV 8.9 Neutrophils % 81.2 Lymphocytes % 9.4 Monocytes % 7.1 Eosinophils % 1.8 Basophils % 0.5 PTT (Actin FS) 51.4 H Sodium 144 Potassium 3.8 Chloride 112 H Carbon Dioxide 20 L Anion Gap 12 BUN 17 Creatinine 1.2 Creat Clearance w eGFR 57.54 Random Glucose 89 Calcium 8.2 L Total Bilirubin 0.4 AST 37 ALT 26 Alkaline Phosphatase 68 Troponin I Total Protein 6.1 L Albumin 2.7 L Stool Occult Blood 10/22/16 08:10 WBC RBC Hgb Hct MCV MCHC RDW Plt Count MPV Neutrophils % Lymphocytes % Monocytes % Eosinophils % Basophils % PTT (Actin FS) Sodium Potassium Chloride Carbon Dioxide Anion Gap BUN Creatinine Creat Clearance w eGFR Random Glucose Calcium Total Bilirubin AST ALT Alkaline Phosphatase Troponin I 0.30 H Total Protein Albumin Stool Occult Blood IMAGING: CXR (10/19/16 @13:23): Since 11/14/15, enlarged heart with sclerotic unfolded aorta , and tracheal deviation to the right. Increased markings at left base which could represent some focal atelectasis. CXR (10/20/16 @ 6:00): No significant interval change or acute lung disease is present ASSESSMENT AND PLAN 86 y/o M with PMHx of dementia, HTN, CAD, NC (one year ago s/p 2 stents) admitted for sepsis secondary to UTI 1. Sepsis secondary to UTI -In ED received NS 2L, Vanc/Zosyn -Patient currently admitted med/surg -Final urine culture returned 20-30K CFU of Staphylococcus Epidermididis -Continue to treat with IV Ceftriaxone (Day 4 of 5) -WBC trending down (10.3 to 9.2) -Lactic acidosis has resolved (Highest was 3.3, down to 0.704) -ID on board -Continue to monitor labs, vitals 2. Rising troponin levels - r/o ACS -History of CAD s/p two stents -Troponin decreased from 0.78 to 0.4 -Cardiology on board -Per [employer] Mechanic, Dr. Ward. Elevated troponin likely due to type II NSTEMI secondary to demand from patient's tachycardia and fever two days ago. Patient to be continued on NSTEMI protocol (Heparin drip, plavix, toprol, and aspirin). -Echo shows possible pEFHF, pt will need f/u with corporate administrative assistant once discharged -Patient's pTT decreased from 58.2 to 51.4, continue to monitor -Continue to monitor vitals, labs 3. Dementia -Continue Rivastigmine, Seroquel 4. Urinary retention secondary to BPH -Urology on board -Massey inserted 10/19, D/C 10/21 -Circumcision to be done today 5. RASHEL secondary to hypovolemia -Improved -Creatinine back at baseline -NS discontinued -Continue to monitor labs 6. HTN -Continue Toprol 7. DVT Px -SCDs Dispo: Continue to monitor pt in med/surg
[2016-10-22] MEDS ORDERED: BACITRACIN 15 GM TUBE TOPICAL OINTMENT TP ONE (14:25)
--- NOTE | 2016-10-22 14:30 | OP ---
Operative Note - Note: Operative Date: 10/22/16 Pre-Operative Diagnosis: phimosis, urinary retention Operation: cysto/circumcision Post-Operative Diagnosis: Same as Pre-op Surgeon: Shantanu Mccloud Anesthesia: Spinal Estimated Blood Loss (mls): 1
[2016-10-22] MEDS ORDERED: ONDANSETRON 4 MG/2 ML VIAL IVPUSH PRN (14:42)
[2016-10-22] MEDS ORDERED: LACTATED RINGERS SOLUTION 1,000 ML IV SCH (14:45)
--- NOTE | 2016-10-22 15:13 | PN ---
Progress Note (short form) - Note Progress Note: S/P cysto/circumcision. NAD Afebrile. Breathing is non-labored. Intake & Output 10/19/16 10/20/16 10/21/16 10/22/16 23:59 23:59 23:59 23:59 Intake Total 4200 2022 941 790 Output Total 1600 400 600 Balance 4200 422 541 190 Weight 180 lb 169 lb 12.095 oz Last Vital Signs Temp Pulse Resp BP Pulse Ox 98.4 F 89 20 120/72 94 L 10/22/16 10:00 10/22/16 10:00 10/22/16 10:00 10/22/16 10:00 10/22/16 10:00 Active Medications Acetaminophen (Tylenol -) 650 mg PO Q4H PRN PRN Reason: FEVER OR PAIN Last Admin: 10/20/16 22:45 Dose: 650 mg Atorvastatin Calcium (Lipitor -) 5 mg PO HS [facility] Last Admin: 10/21/16 22:25 Dose: 5 mg Cholecalciferol (Vitamin D3 -) 1,000 unit PO DAILY [facility] Last Admin: 10/22/16 10:04 Dose: 1,000 unit Clopidogrel Bisulfate (Plavix -) 75 mg PO DAILY [facility] Last Admin: 10/22/16 09:56 Dose: 75 mg Fentanyl (Sublimaze Injection -) 25 mcg IVPUSH [id number] PRN PRN Reason: PAIN Stop: 10/25/16 14:43 Ceftriaxone Sodium (Rocephin 1gm Ivpb (Pre-Docked)) 50 mls @ 100 mls/hr IVPB DAILY@2200 [facility] Last Admin: 10/22/16 09:55 Dose: 100 mls/hr Lactated Ringer's (Lactated Ringers Solution) 1,000 mls @ 75 mls/hr IV ASDIR [facility] Lactobacillus Acidophilus (Bacid -) 1 tab PO DAILY [facility] Last Admin: 10/22/16 09:56 Dose: 1 tab Metoprolol Succinate (Toprol Xl -) 25 mg PO DAILY [facility] Last Admin: 10/22/16 09:56 Dose: 25 mg Non-Formulary Medication (Alpha Lipoic Acid [Alpha Lipoic Acid]) 600 mg PO DAILY [facility] Non-Formulary Medication ([place]-3 Fatty Acids [[place]-3]) 1,000 mg PO DAILY [facility] Non-Formulary Medication (Rivastigmine [Exelon]) 13.3 mg TD DAILY [facility] Last Admin: 10/22/16 09:56 Dose: 13.3 mg Non-Formulary Med ( Namenda [Memantine] Xr 28mg Cap) 1 each PO DAILY [facility] Last Admin: 10/22/16 09:56 Dose: 1 each Ondansetron HCl (Zofran Injection) 4 mg IVPUSH Q6H PRN PRN Reason: NAUSEA AND/OR VOMITING Stop: 10/22/16 20:43 Pantoprazole Sodium (Protonix -) 40 mg PO DAILY [facility] Last Admin: 10/22/16 09:56 Dose: 40 mg Quetiapine Fumarate (Seroquel -) 25 mg PO HS [facility] Last Admin: 10/21/16 22:30 Dose: Not Given GENERAL: NAD HEAD: Normal with no signs of trauma. LUNGS: clear to auscultation bilaterally HEART: Regular rate and rhythm, S1, S2 without murmur, rub or gallop. ABDOMEN: Soft, nontender, nondistended, normoactive bowel sounds, no guarding, no rebound, no hepatosplenomegaly, no masses. EXTREMITIES: 2+ pulses, warm, well-perfused, no edema. NEUROLOGICAL: nonfocal SKIN: Warm, dry, normal turgor, no rashes or lesions noted Laboratory Results - last 24 hr 10/21/16 10/22/16 10/22/16 20:00 01:00 05:35 WBC RBC Hgb Hct MCV MCHC RDW Plt Count MPV Neutrophils % Lymphocytes % Monocytes % Eosinophils % Basophils % PTT (Actin FS) 51.4 H Sodium Potassium Chloride Carbon Dioxide Anion Gap BUN Creatinine Creat Clearance w eGFR Random Glucose Calcium Total Bilirubin AST ALT Alkaline Phosphatase Troponin I 0.41 H D Total Protein Albumin Stool Occult Blood Negative 10/22/16 10/22/16 10/22/16 05:35 05:35 08:10 WBC 9.2 RBC 4.40 Hgb 11.8 Hct 35.8 MCV 81.2 MCHC 32.9 RDW 15.4 Plt Count 231 MPV 8.9 Neutrophils % 81.2 Lymphocytes % 9.4 Monocytes % 7.1 Eosinophils % 1.8 Basophils % 0.5 PTT (Actin FS) Sodium 144 Potassium 3.8 Chloride 112 H Carbon Dioxide 20 L Anion Gap 12 BUN 17 Creatinine 1.2 Creat Clearance w eGFR 57.54 Random Glucose 89 Calcium 8.2 L Total Bilirubin 0.4 AST 37 ALT 26 Alkaline Phosphatase 68 Troponin I 0.30 H Total Protein 6.1 L Albumin 2.7 L Stool Occult Blood Problem List - Problems (1) Sepsis Code(s): A41.9 - SEPSIS, UNSPECIFIED ORGANISM (2) UTI (urinary tract infection) Code(s): N39.0 - URINARY TRACT INFECTION, SITE NOT SPECIFIED (3) Abnormal transaminases Code(s): R74.0 - NONSPEC ELEV OF LEVELS OF TRANSAMNS & LACTIC ACID DEHYDRGNSE (4) Urinary retention due to benign prostatic hyperplasia Code(s): N40.1 - BENIGN PROSTATIC HYPERPLASIA WITH LOWER URINARY TRACT SYMP R33.8 - OTHER RETENTION OF URINE (5) Urinary retention with incomplete bladder emptying Code(s): R33.9 - RETENTION OF URINE, UNSPECIFIED (6) NSTEMI (non-ST elevated myocardial infarction) Code(s): I21.4 - NON-ST ELEVATION (NSTEMI) MYOCARDIAL INFARCTION (7) Demand ischemia Code(s): I24.8 - OTHER FORMS OF ACUTE ISCHEMIC HEART DISEASE (8) Dementia Code(s): F03.90 - UNSPECIFIED DEMENTIA WITHOUT BEHAVIORAL DISTURBANCE PLAN: ABX per ID O2 as needed Aspiration precautions VTE prophylaxis IVF Dr Daley
[2016-10-22] MEDS ORDERED: ACETAMINOPHEN 325 MG TABLET (FP) PO PRN (15:41)
[2016-10-22] MEDS ORDERED: DOXAZOSIN MESYLATE 2 MG TABLET (FP) PO SCH (17:30)
[2016-10-22] MEDS: DOXAZOSIN MESYLATE 1 MG TABLET PO SCH (19:27)
[2016-10-22] MEDS ORDERED: QUEtiapine FUMARATE 25 MG TABLET (FP) PO SCH (22:00)
[2016-10-22] MEDS ORDERED: CEFTRIAXONE 50 ML IVPB SCH (22:00)
[2016-10-22] MEDS ORDERED: ATORVASTATIN CA 10 MG TABLET (FP) PO SCH (22:00)
[2016-10-22] MEDS ORDERED: LORAZEPAM CARPU-JECT 2 MG/ML DISP.SYRIN IVPUSH ONE (22:16)
--- NOTE | 2016-10-22 22:19 | HOSP ---
Subjective - Review of Symptoms Events since last encounter: Pt extremely agitated, pulling at arce, combative with nurses and staff and behaving violently towards nurse. Pt states he wants to urinate and I explained to him he has a arce catheter in place currently which will drain urine from his bladder. Pt continuously tries to pull arce out despite strongly advising him not to. Pt also attempts to get out of bed despite being advised to stay in bed. Ativan 0.5 mg IV once ordered Wrist restraints ordered [place] vest ordered --Despite Ativan 0.5 mg pt continues to be agitated, yelling loudly in room -2.5 mg haldol ordered -Pt awake at 4:45 am and pulling at sheets and trying to pull monitor. Ordered 0.5mg ativan PRN once if needed if agitation continues. When moving HR going up to 140s. Physical Examination Vital Signs: Vital Signs Temperature 97.6 F 10/22/16 16:15 Pulse Rate 68 10/22/16 16:15 Respiratory Rate 18 10/22/16 16:15 Blood Pressure 124/83 10/22/16 16:15 O2 Sat by Pulse Oximetry (%) 100 10/22/16 16:15 Labs: CBC, BMP 10/22/16 05:35 10/22/16 05:35 Visit type - Emergency Visit Emergency Visit: Yes ED Registration Date: 10/19/16 Care time: The patient presented to the Emergency Department on the above date and was hospitalized for further evaluation of their emergent condition. - New Patient This patient is new to me today: Yes Date on this admission: 10/23/16 - Critical Care Critical Care patient: No
[2016-10-22] MEDS ORDERED: HALOPERIDOL LACTATE 5 MG/ML IM ONE (23:11)
[2016-10-23] MEDS ORDERED: LORAZEPAM CARPU-JECT 2 MG/ML DISP.SYRIN IVPUSH ONE (04:45)
[2016-10-23 06:50] LABS: MCH 26.7 pg (25.7-33.7); MCHC 32.9 g/dl (32.0-35.9); MEAN CELL VOLUME 81.1 fl (80-96); PLATELET COUNT 243 K/MM3 (134-434); RDW 15.1 % (11.9-15.9); WHITE BLOOD COUNT 7.2 K/mm3 (4.0-10.0)
[2016-10-23] MEDS ORDERED: PANTOPRAZOLE 40 MG TABLET (FP) PO SCH (10:00)
[2016-10-23] MEDS ORDERED: LACTOBACILLUS ACIDOPHILUS 1 EACH TAB (FP) PO SCH (10:00)
[2016-10-23] MEDS ORDERED: BACITRACIN 15 GM TUBE TOPICAL OINTMENT TP SCH (10:00)
[2016-10-23] MEDS ORDERED: RIVASTIGMINE 13.3 MG TD SCH (10:00)
[2016-10-23] MEDS ORDERED: PATIENT'S OWN MEDICATION (NON-FORMULARY) (Omega-3 Fatty Acids [Omega-3] 1,000 MG) PO SCH (10:00)
[2016-10-23] MEDS ORDERED: ALPHA LIPOIC ACID 600 MG PO SCH (10:00)
[2016-10-23] MEDS ORDERED: CHOLECALCIFEROL (VITAMIN D3) 1,000 UNIT TABLET (FP) PO SCH (10:00)
[2016-10-23] MEDS ORDERED: METOPROLOL SUCCINATE 25 MG TAB.SR.24H (FP) PO SCH (10:00)
[2016-10-23] MEDS ORDERED: NON-FORMULARY MED PO SCH (10:00)
[2016-10-23] MEDS: DOXAZOSIN MESYLATE 1 MG TABLET PO SCH (10:01)
--- NOTE | 2016-10-23 10:32 | OP ---
DATE OF OPERATION: DATE OF DICTATION: 10/22/2016 PREOPERATIVE DIAGNOSES: Phimosis and benign prostatic hypertrophy with urinary retention. POSTOPERATIVE DIAGNOSES: Phimosis and benign prostatic hypertrophy with urinary retention. PROCEDURE: Circumcision and flexible cystoscopy. SURGEON: Jordin Layne MD INDICATION: Patient is an 86-year-old male who was admitted for urosepsis with urinary retention. He has a history of BPH now and also very tight phimotic foreskin. Massey catheter was removed and continued to have urinary retention. After reviewing treatment options, the family elected for him to undergo a circumcision as well as cystoscopy. DESCRIPTION OF PROCEDURE: Patient was taken to the OR, placed supine on the operating table, then spinal anesthetic was then given. The penis was prepped and draped in standard surgical fashion. The foreskin was so severely phimotic that I started out first performing a dorsal slit and then doing a formal circumcision until the entire circumferential cicatrix of foreskin was excised. The proximal foreskin tissue was then circumferentially sutured to the distal of foreskin until the entire area was reanastomosed. A dry sterile dressing was then placed. At this point then, flexible cystoscopy was performed which revealed normal urethra with enlarged, 4-cm prostate with obstructing lateral lobes and median lobe. No tumors or stones were noted. The cystoscope was then removed, and Massey was placed to straight drainage. Clear urine was retrieved. The patient was awoken from anesthesia and transferred to recovery room in stable condition. There were no complications. Estimated blood loss was minimal. JORDIN LAYNE M.D. [id number]
--- NOTE | 2016-10-23 11:39 | PN ---
Progress Note (short form) - Note Progress Note: s: overnight with agitation, needed to be sedated, now lethargic but arousable and denies cp sob palps dizzy o: Vital Signs Period Temp Pulse Resp BP Sys/Yun Pulse Ox Last 24 Hr 97.6 F-99.3 F 62-110 16-20 106-157/55-83 95-100 nad no jvd rrr s1s2 no mrg scattered rhonchi lethargic abd nd pos bs no le e/c/c no jaundice diaphoresis Current Medications Generic Name Dose Route Start Last Admin Trade Name Freq PRN Reason Stop Dose Admin Acetaminophen 650 mg 10/22/16 15:41 Tylenol - PO Q4H PRN FEVER OR PAIN Atorvastatin Calcium 5 mg 10/22/16 22:00 10/22/16 21:33 Lipitor - PO Not Given HS IS[place]EL Bacitracin 1 applic 10/23/16 10:00 10/23/16 10:02 Bacitracin - TP Not Given BID [facility] Cholecalciferol 1,000 unit 10/23/16 10:00 10/23/16 10:00 Vitamin D3 - PO 1,000 unit DAILY [place] Administration Doxazosin Mesylate 2 mg 10/22/16 18:45 10/23/16 10:01 Cardura - PO Not Given DAILY [facility] Ceftriaxone Sodium 50 mls @ 100 mls/hr 10/22/16 22:00 10/22/16 21:29 Rocephin 1gm Ivpb (Pre-Docked) IVPB Not Given DAILY@2200 [place] Lactobacillus Acidophilus 1 tab 10/23/16 10:00 10/23/16 10:02 Bacid - PO Not Given DAILY [facility] Metoprolol Succinate 25 mg 10/23/16 10:00 10/23/16 10:01 Toprol Xl - PO Not Given DAILY [facility] Non-Formulary Medication 1 each 10/23/16 10:00 10/23/16 10:01 Non-Formulary Med PO Not Given DAILY [place] Non-Formulary Medication 13.3 mg 10/23/16 10:00 10/23/16 10:01 Rivastigmine [Exelon] TD Not Given DAILY [facility] Pantoprazole Sodium 40 mg 10/23/16 10:00 10/23/16 10:00 Protonix - PO 40 mg DAILY [place] Administration Quetiapine Fumarate 25 mg 10/22/16 22:00 10/22/16 21:33 Seroquel - PO Not Given HS [place] CBC, BMP 10/23/16 05:35 10/22/16 05:35 Tele: sr, sinus tachy (when agitated), PVC's, PACs, nsvt up to 3 beats EKG 1: sinus tach 125 bpm. with pvc. anterolateral twi and std. EKG 2: Sinus tach with pvc pac. subtle ST sagging in anterolateral leads. No acute ischemic changes echo 10/2016: mild conc lvh, nl lv, nl rv, mild lae, mild mr, mild tr, mild ar, rvsp 30-40 A/P 86 yo with h/o CAD s/p NSTEMI and TANNER 10/2015, HTN, bph, alzheimer's who presents with sepsis Sepsis, uti - s/p IVF and abx. has not required pressors. abx per pmd CAD with prior NSTEMI/TANNER - CAD (3vd) NSTEMI s/p TANNER to OM1 and RPDA 10/2015. 50-60% residual mLAD and Ramus - Last TANNER almost one year ago was going to stop plavix this month. Currently with enzyme elevation --> would con't DAPT for now. Low threshold to hold if evidence of bleeding. OK to hold plavix if needed for intervention - Small elevation in CE's. There is a subtle rise and fall pattern of CE's with ekg changes, likely Type II nstemi 2/2 demand from tachycardia/fever/ sepsis. Will treat per NSTEMI protocol with heparin drip, asa, plavix. Can dc hep gtt after 48 hours. - EKG abnormalities improved at lower heart rate, consistent with demand ischemia. - echo with no WMA's, unremarkable - cont med management for cad with bb, statin, dapt HTN - was hypotensive. now stable after IVF, abx. Ischemic cardiomyopathy (40%) with mild-mod ischemic MR -->now normal lvef - Improvement in EF 04/2016 --> Bp had been too low as outpatient for lisinopril. metoprolol now resumed in setting of nstemi, tolerating so far. Frequent PVC's/occ NSVT -normal lvef -electrolyte repletion prn. -cont metoprolol. cardiac casarez stable
--- NOTE | 2016-10-23 12:59 | PN ---
Teaching Attending Note Name of Resident: Katy Pinto ATTENDING PHYSICIAN STATEMENT I saw and evaluated the patient. I reviewed the resident's note and discussed the case with the resident. I agree with the resident's findings and plan as documented. SUBJECTIVE: OBJECTIVE: Last Vital Signs Temp Pulse Resp BP Pulse Ox 97.8 F 89 20 102/71 95 10/23/16 10:00 10/23/16 10:00 10/23/16 10:00 10/23/16 10:00 10/23/16 10:00 General NAD, alert, A&Ox1 (self) CV S1 S2 RRR no murmur/rub/gallop Lungs CTA B/L no wheezing/rales/rhonchi Abdomen soft NT/ND no suprapubic tenderness or distention ASSESSMENT AND PLAN: 86yo M with PMH CAD s/p stents, HTN, BPH, dementia/Alzheimer presented to the ER and was admitted for further evaluation of their emergent condition 1. Sepsis due to UTI- due to urinary obstruction.s/p circumcision yesterday. arce removed and awaiting pt to void. day 5 of ceftriaxone, awaiting ID final recommendation on duration of po abx course, will need to f/u urology as outpatient 2. Elevated tropnin- likely demand ischemia, Troponin peaked at 1.02. hep ggt x48H, now off/ medical management for now. betablocker/asa/statin 3. RASHEL- likely due to blockage. improved. avoid nephrotoxic medications. 4. dementia-agitated in the evening. received ativan 1mg and haldol, as per son present at bedside, he is often agitated at night every time hes hospitalized. 5. hypokalemia- resolved 6. DVT ppx- hep sq 7. d/c planning today
--- NOTE | 2016-10-23 14:08 | PN ---
Progress Note (short form) - Note Progress Note: ANESTHESIOLOGY POST-OP CHECK 86M s/p circumcision and cystoscopy under spinal anesthesia, POD #1. No acute complaints, denies pain, N/V, backache, headache. tolerating PO and ambulating. Vital Signs Temperature 97.8 F 10/23/16 10:00 Pulse Rate 89 10/23/16 10:00 Respiratory Rate 20 10/23/16 10:00 Blood Pressure 102/71 10/23/16 10:00 O2 Sat by Pulse Oximetry (%) 95 10/23/16 10:00 Active Medications Acetaminophen (Tylenol -) 650 mg PO Q4H PRN PRN Reason: FEVER OR PAIN Atorvastatin Calcium (Lipitor -) 5 mg PO HS [facility] Last Admin: 10/22/16 21:33 Dose: Not Given Bacitracin (Bacitracin -) 1 applic TP BID [facility] Last Admin: 10/23/16 10:02 Dose: Not Given Cholecalciferol (Vitamin D3 -) 1,000 unit PO DAILY [facility] Last Admin: 10/23/16 10:00 Dose: 1,000 unit Doxazosin Mesylate (Cardura -) 2 mg PO DAILY [facility] Last Admin: 10/23/16 10:01 Dose: Not Given Ceftriaxone Sodium (Rocephin 1gm Ivpb (Pre-Docked)) 50 mls @ 100 mls/hr IVPB DAILY@2200 [facility] Last Admin: 10/22/16 21:29 Dose: Not Given Lactobacillus Acidophilus (Bacid -) 1 tab PO DAILY [facility] Last Admin: 10/23/16 10:02 Dose: Not Given Metoprolol Succinate (Toprol Xl -) 25 mg PO DAILY [facility] Last Admin: 10/23/16 10:01 Dose: Not Given Non-Formulary Medication (Non-Formulary Med) 1 each PO DAILY [facility] Last Admin: 10/23/16 10:01 Dose: Not Given Non-Formulary Medication (Rivastigmine [Exelon]) 13.3 mg TD DAILY [facility] Last Admin: 10/23/16 10:01 Dose: Not Given Pantoprazole Sodium (Protonix -) 40 mg PO DAILY [facility] Last Admin: 10/23/16 10:00 Dose: 40 mg Quetiapine Fumarate (Seroquel -) 25 mg PO HS [facility] Last Admin: 10/22/16 21:33 Dose: Not Given Gen: awake alert No apparent anesthesia complications, pain well controlled. Continue management as per primary team.
--- NOTE | 2016-10-23 14:52 | PN ---
Progress Note, Physician History of Present Illness: Awake, alert S/P circumcision Reports voiding well No c/o dysuria No fever/ chills Temps remain down- afebrile WBC WNL BC (-) Urine c/s S epi - Current Medication List Current Medications: Active Medications Acetaminophen (Tylenol -) 650 mg PO Q4H PRN PRN Reason: FEVER OR PAIN Atorvastatin Calcium (Lipitor -) 5 mg PO HS [facility] Last Admin: 10/22/16 21:33 Dose: Not Given Bacitracin (Bacitracin -) 1 applic TP BID [facility] Last Admin: 10/23/16 10:02 Dose: Not Given Cholecalciferol (Vitamin D3 -) 1,000 unit PO DAILY [facility] Last Admin: 10/23/16 10:00 Dose: 1,000 unit Doxazosin Mesylate (Cardura -) 2 mg PO DAILY [facility] Last Admin: 10/23/16 10:01 Dose: Not Given Ceftriaxone Sodium (Rocephin 1gm Ivpb (Pre-Docked)) 50 mls @ 100 mls/hr IVPB DAILY@2200 [facility] Last Admin: 10/22/16 21:29 Dose: Not Given Lactobacillus Acidophilus (Bacid -) 1 tab PO DAILY [facility] Last Admin: 10/23/16 10:02 Dose: Not Given Metoprolol Succinate (Toprol Xl -) 25 mg PO DAILY [facility] Last Admin: 10/23/16 10:01 Dose: Not Given Non-Formulary Medication (Non-Formulary Med) 1 each PO DAILY [facility] Last Admin: 10/23/16 10:01 Dose: Not Given Non-Formulary Medication (Rivastigmine [Exelon]) 13.3 mg TD DAILY [facility] Last Admin: 10/23/16 10:01 Dose: Not Given Pantoprazole Sodium (Protonix -) 40 mg PO DAILY [facility] Last Admin: 10/23/16 10:00 Dose: 40 mg Quetiapine Fumarate (Seroquel -) 25 mg PO HS [facility] Last Admin: 10/22/16 21:33 Dose: Not Given - Objective Vital Signs: Vital Signs Temperature 97.8 F 10/23/16 10:00 Pulse Rate 89 10/23/16 10:00 Respiratory Rate 20 10/23/16 10:00 Blood Pressure 102/71 10/23/16 10:00 O2 Sat by Pulse Oximetry (%) 95 10/23/16 10:00 Constitutional: Yes: No Distress Eyes: Yes: Conjunctiva Clear Cardiovascular: Yes: Regular Rate and Rhythm, S1, S2 Respiratory: Yes: CTA Bilaterally Gastrointestinal: Yes: Normal Bowel Sounds, Soft. No: Tenderness Genitourinary: Yes: Other (surgical wound sutures in place no erythema/ drainage) Labs: CBC, BMP 10/23/16 05:35 10/22/16 05:35 INR, PTT INR 1.37 (0.82-1.09) H 10/20/16 05:05 Assessment/Plan UTI/Sepsis secondary to UTI S/P acute urinary retention; post op circumcision + urine c/s S. epi = contaminant Toxic metabolic encephalopathy/ OBS Discontinue ceftriaxone Substitute ceftin 500mg po bid x 48h
--- NOTE | 2016-10-23 14:55 | DS ---
Physical Exam: SUBJECTIVE: Patient seen and examined, POD #1 s/p circumcision, overnight patient agitated, was given Ativan. This am patient was awake, alert and oriented. He was assisted from bed to chair, sitting up comfortable, eating breakfast. Was walked with PT. OBJECTIVE: Vital Signs Period Temp Pulse Resp BP Sys/Yun Pulse Ox Last 24 Hr 97.6 F-99.3 F 62-110 18-20 102-157/55-83 95-100 PHYSICAL EXAM GENERAL: The patient is awake, alert, and fully oriented, in no acute distress. HEAD: Normal with no signs of trauma. EYES: PERRL, extraocular movements intact, sclera anicteric, conjunctiva clear. ENT: Ears normal, nares patent, oropharynx clear without exudates, moist mucous membranes. NECK: Trachea midline, full range of motion, supple. LUNGS: Breath sounds equal, clear to auscultation bilaterally, no wheezes, no crackles, no accessory muscle use. HEART: Regular rate and rhythm, S1, S2 without murmur, rub or gallop. ABDOMEN: Soft, nontender, nondistended, normoactive bowel sounds, no guarding, no rebound, no hepatosplenomegaly, no masses. EXTREMITIES: 2+ pulses, warm, well-perfused, no edema. Right old LE laceration, healing NEUROLOGICAL: awake, alert oriented to self PSYCH: Normal mood, normal affect. SKIN: Warm, dry, normal turgor, no rashes or lesions noted. LABS Laboratory Results - last 24 hr 10/23/16 10/23/16 05:35 05:35 WBC 7.2 RBC 4.21 Hgb 11.2 L Hct 34.2 L MCV 81.1 MCHC 32.9 RDW 15.1 Plt Count 243 MPV 9.0 PTT (Actin FS) 27.7 D HOSPITAL COURSE: Date of Admission:10/19/16 Date of Discharge: 10/23/16 This is an 86 year old male with a past medical history of hypertension, coronary artery disease (s/p drug eluting stents x2 last year), chronic urinary retention, BPH, dementia, presented with altered mental stats, s/p outpatient treatment failure of urinary tract infection. Patient admitted for sepsis secondary to complicated urinary tract infection. He was started on IV ceftriaxone. Urine culture grew staph epidermidis. He completed five days in hospital and sent home on two more days of ceftin 500mg bid. Urinary retention was and issue in the hospital, patient was seen by urology. Repeated urinary tract infections with retention was related to phimosis and prostate hyperplasia. Circumcision was done during hospital stay, he will follow up with urology as an outpatient. On admission toponin was elevated, this was most likely related to demand ischemia during sepsis, he was started on a 48hr heparin drip and was treated as such for NSTEMI due to his cardiac history. Troponins trended down, he will see cardiology as an outpatient. Patient was continued on his plavix and daily aspirin. Medication list did have metoprolol and lipitor, as per daughter he was not taking these medications at home, therefore these were stopped. This can be discussed with mechanical project manager. Patient does have history of dementia, mostly sun downing, agitation was controlled with small doses of ativan. Sedatives have a heavy impact on this gentleman so they were used sparingly. Minutes to complete discharge: 35 Discharge Summary Reason For Visit: SEPSIS/UTI Current Active Problems RASHEL (acute kidney injury) (Acute) Demand ischemia (Acute) Dementia (Acute) NSTEMI (non-ST elevated myocardial infarction) (Acute) Sepsis secondary to UTI (Acute) Urinary retention (Acute) Urinary retention due to benign prostatic hyperplasia (Acute) Urinary retention with incomplete bladder emptying (Acute) Condition: Improved - Instructions Diet, Activity, Other Instructions: Mr. Nails, you have been treated for a urinary tract infection. We you like you to to follow up with urologist regarding your urologic condition. We would also like you to follow up with your mechanical project manager and primary care physician with in one week. If you experience any worsening of symptoms including chest pain, shortness of breath, increased urinary retention, please return to the emergency room. Referrals: Jessie Ward MD [Staff Physician] - Shantanu Mccloud MD [Staff Physician] - Ralph Morley MD [Primary Care Provider] - Disposition: HOME - Home Medications Comprehensive Discharge Medication List: Ambulatory Orders Aspirin [Aspir 81] 81 mg PO DAILY 05/12/16 Bacitracin - [Bacitracin Topical Ointment -] 1 applic TP BID tube 10/23/16 Cefuroxime Axetil [Ceftin -] 500 mg PO BID #4 tablet 10/23/16 Doxazosin Mesylate [Cardura -] 2 mg PO DAILY #7 tablet 10/23/16 Memantine HCl [Namenda -] 28 mg PO DAILY #30 tablet 10/23/16 Problem List - Problems (1) Urinary retention due to benign prostatic hyperplasia Code(s): N40.1 - BENIGN PROSTATIC HYPERPLASIA WITH LOWER URINARY TRACT SYMP R33.8 - OTHER RETENTION OF URINE (2) Urinary retention with incomplete bladder emptying Code(s): R33.9 - RETENTION OF URINE, UNSPECIFIED (3) NSTEMI (non-ST elevated myocardial infarction) Code(s): I21.4 - NON-ST ELEVATION (NSTEMI) MYOCARDIAL INFARCTION (4) Demand ischemia Code(s): I24.8 - OTHER FORMS OF ACUTE ISCHEMIC HEART DISEASE (5) Dementia Code(s): F03.90 - UNSPECIFIED DEMENTIA WITHOUT BEHAVIORAL DISTURBANCE This patient is new to me today: No Emergency Visit: Yes ED Registration Date: 10/19/16 Care time: The patient presented to the Emergency Department on the above date and was hospitalized for further evaluation of their emergent condition. Critical Care patient: No - Discharge Referral Referred to [facility] No
[2016-10-23 15:07] VITALS: BP 96/51; PULSE 95; TEMP 97.6
--- NOTE | 2016-10-26 14:15 | PATH ---
Surgical Pathology Report Patient Name: DAYNE SHIPLEY Med. Rec. #: [id number] /Age/Gender: 1930 (Age: 86) / M Account: [id number] Location: 4 PEDS/ADOL Taken: 10/22/2016 Received: 10/23/2016 Reported: 10/26/2016 Physicians: Shantanu Mccloud M.D. Specimen(s) Received FORESKIN Clinical History Sepsis, UTI Final Diagnosis FORESKIN, CIRCUMCISION: FOCALLY ULCERATED BENIGN FORESKIN WITH FOCAL ACTIVE AND MARKED CHRONIC INFLAMMATION WITH PLASMA CELL PREDOMINANCE SUGGESTIVE OF PLASMA CELL (ZOON) BALANITIS WITH SECONDARY ULCERATION. NO DYSPLASIA IDENTIFIED. Electronically Signed Matt Whatley M.D. Gross Description Received in formalin labeled "foreskin" is a 4.5 x 2.0 x 0.6 cm estrada, irregular, wrinkled portion of tissue, consistent with foreskin. The epidermal surface displays multifocal barr-brown, possible lesions. Counseling Services Director sections including the possible lesions are submitted in one cassette. /10/23/201610/23/2016
== END 2016-10-23 15:41 | disposition home or self-care (01) | DRG 871 ==
LOC: FER 12:31 → SUPCPDRO 12:31 → JICU 18:32 → J4S 10-20 21:02
PROVIDERS: ADMIT Internal Medicine; ATTEND Internal Medicine
PROC: 0VTTXZZ Resection of Prepuce, External Approach (ICD-10-PCS; principal; 2016-10-22 12:30)
PROC: 0TJB8ZZ Inspection of Bladder, Via Natural or Artificial Opening Endoscopic (ICD-10-PCS; 2016-10-22 12:30)
DX: A41.9 Sepsis, unspecified organism (principal); G92 Toxic encephalopathy; I21.4 Non-ST elevation (NSTEMI) myocardial infarction; N39.0 Urinary tract infection, site not specified; N17.9 Acute kidney failure, unspecified; I47.1 Supraventricular tachycardia; F03.90 Unspecified dementia, unspecified severity, without behavioral disturbance, psychotic disturbance, mood disturbance, and anxiety; I25.10 Atherosclerotic heart disease of native coronary artery without angina pectoris; Z98.61 Coronary angioplasty status; N40.1 Benign prostatic hyperplasia with lower urinary tract symptoms; R33.8 Other retention of urine; E87.6 Hypokalemia; I25.5 Ischemic cardiomyopathy; I25.2 Old myocardial infarction; N47.1 Phimosis; E86.1 Hypovolemia; R41.82 Altered mental status, unspecified; Z87.891 Personal history of nicotine dependence
CPT/HCPCS: 36415; 36600; 71010-TC; 76775-TC; 80053; 81003; 81015; 82272; 82436; 82550; 82553; 82570; 82803; 83605; 83735; 84100; 84133; 84300; 84484; 85025; 85027; 85610; 85730; 87040; 87086; 87186; 87324; 87449; 88304-TC; 93005; 93010; 93306-TC; 94760; 97116-GP; 97162-GP; 99285-25; G0480; J1644

== ENCOUNTER 2017-07-24 19:48 | Emergency (ER) | payer OTHER ==
--- NOTE | 2017-07-24 19:57 | PDOC ---
History of Present Illness - General History Source: Family Exam Limitations: Dementia <Pastora Medina - Last Filed: 07/24/17 20:23> - General History Source: Family Exam Limitations: Dementia <Ren Hernandez I - Last Filed: 07/24/17 21:08> - General Chief Complaint: Chest Pain Stated Complaint: chest pain Time Seen by Provider: 07/24/17 19:55 - History of Present Illness Initial Comments: 07/24/17 20:10 The patient is an 87 year old male, with a significant past medical history of dementia, hypertension, coronary artery disease s/p stents x3, who who presents to the emergency department brought in by family for seeming off today as per family. The family reports the patient would not eat his dinner this evening and state the patient complained of pain as he pointed to his anterior chest. approximately 1 hour prior to ED arrival. As per family, the patient was also seated at the dinner table with his head down which the patients reports is how I knew something is wrong. PCP: Dr. Whitehead Telex Operator: Dr. Jessie Ward PAST MEDICAL HISTORY: dementia, hypertension, coronary artery disease s/p stents x3 PAST SURGICAL HISTORY: stents x3 SOCIAL HISTORY: Former smoker 35 years ago MEDICATIONS: reviewed ALLERGIES: As per nursing notes ROS deferred secondary to patient's dementia. Hx as per family at bedside. Adult Exam: General: Well-nourished well-developed individual, no acute distress HEENT: Throat: Normal, tonsils normal, no erythema or exudate Neck: Supple, no meningeal signs, no lymphadenopathy Eyes::Pupils equal reactive and round, extraocular motion intact Chest: Nontender to palpation Cardiac: S1-S2 normal, regular rate and rhythm, no murmurs rubs or gallops Respiratory: Lungs clear to auscultation bilateral Abdomen: Soft, nondistended, normal bowel sounds, nontender to palpation diffusely Extremities: Warm, dry, no cyanosis, clubbing, or edema Skin: No rashes Neuro: Alert and oriented x3, nonfocal exam, grossly intact, normal gait Psych: Normal mood and affect (Pastora Medina) Medical decision making: This is a 87-year-old male with dementia who is brought in by his family for evaluation. Family is concerned he comes of a change in his appetite and he said he did not feel well. Patient has multiple cardiac risk factors We will obtain EKG and cardiac labs as well as regular labs. Assessment and plan: This is a 87-year-old male who comes in with his family for evaluation. Patient has advanced Alzheimer's disease and is demented and unable to give adequate history however history is as per family. Family was concerned because patient said he did not feel well tonight and did not eat his dinner which in the past has indicated a probable medically. Patient otherwise as per family had no fevers, nausea, vomiting, diarrhea or any other change in his mental status or physical health. EKG shows no acute pathology with some nonspecific ST-T wave abnormalities and is unchanged from prior Chest x-ray Labs are unremarkable other than patient may have some mild dehydration with a BUN of 30 and his troponin is negative. Based on patient's age and risk factors and cardiogram his heart scores 5 Patient will be admitted to an observation bed to rule him out under the hospitalist service. 07/24/17 21:04 (Ren Hernandez I) Past History <Pastora Medina - Last Filed: 07/24/17 20:23> - Past Medical History Dementia: Yes (ALZHEIMERS) HTN: Yes - Surgical History Cholecystectomy: Yes - Immunization History Immunization Up to Date: Yes - Suicide/Smoking/Psychosocial Hx Smoking History: Former smoker Have you smoked in the past 12 months: No If you are a former smoker, when did you quit?: 40 YEARS Hx Alcohol Use: Yes (DAILY) Drug/Substance Use Hx: No Substance Use Type: None Hx Substance Use Treatment: No <Ren Hernandez I - Last Filed: 07/24/17 21:08> - Past Medical History Allergies/Adverse Reactions: Allergies Allergy/AdvReac Type Severity Reaction Status Date / Time No Known Allergies Allergy Verified 07/24/17 19:58 Home Medications: Ambulatory Orders Aspirin [Aspir 81] 81 mg PO DAILY 05/12/16 Cholecalciferol (Vitamin D3) [Vitamin D3] 2,000 unit PO DAILY capsule 02/15/17 Lisinopril [Prinivil -] 2.5 mg PO DAILY #0 tablet 02/15/17 Metoprolol Succinate 25 mg PO DAILY 02/15/17 - Vital Signs Last Vital Signs Temp Pulse Resp BP Pulse Ox 97.6 F 70 22 157/70 98 07/24/17 19:51 07/24/17 19:51 07/24/17 19:51 07/24/17 19:51 07/24/17 20:22 Heart Score/ECG Review <Pastora Medina - Last Filed: 07/24/17 20:23> - History History: Slightly suspicious - Electrocardiogram EKG: Non specific repolarization disturbance - Age Age: >/= 65 - Risk Factors Risk Factors Heart Score: Yes Hx Hypercholesterolemia, Yes Smoking History, Yes Positive family hx of cardiac disease Based on the list above the patient has:: >/=3 risk factors or Hx atherosclerotic disease - Troponin Troponin: </= normal limit - Score Heart Score - Total: 5 <Ren Hernandez I - Last Filed: 07/24/17 21:08> - ECG Intrepretation Comment:: 07/24/17 20:23 EKG was read by Dr. Chavez at 19:58 Impression: Sinus rhythm with occasional premature ventricular complexes. Unchanged ECG from October 2016. (Pastora Medina) ED Treatment Course - LABORATORY CBC & Chemistry Diagram: 07/24/17 20:22 07/24/17 20:22 <Ren Hernandez I - Last Filed: 07/24/17 21:08> - ADDITIONAL ORDERS Additional order review: Laboratory Results 07/24/17 07/24/17 07/24/17 20:30 20:22 20:22 Sodium 138 Potassium 4.4 Chloride 106 Carbon Dioxide 25 Anion Gap 7 L BUN 30 H Creatinine 1.2 Creat Clearance w eGFR 57.41 Random Glucose 106 Calcium 9.2 Total Bilirubin 0.5 D AST 15 ALT 11 Alkaline Phosphatase 65 Creatine Kinase 56 Troponin I < 0.03 L Total Protein 7.3 Albumin 3.8 Urine Color Yellow Urine Appearance Hazy Urine pH 5.0 Ur Specific [place] 1.025 Urine Protein Negative Urine Glucose (UA) Negative Urine Ketones Trace Urine Blood 2+ H Urine Nitrite Negative Urine Bilirubin Negative Urine Urobilinogen 0.2 Urine RBC 15-30 Urine WBC 0-3 Ur Epithelial Cells Few Amorphous Urates Few Urine Bacteria Few Urine Other 07/24/17 20:22 RBC 4.56 MCV 75.7 L MCHC 31.7 L RDW 14.6 MPV 9.0 Neutrophils % 68.9 Lymphocytes % 20.0 Monocytes % 8.6 Eosinophils % 1.9 Basophils % 0.6 - RADIOLOGY Radiology Studies Ordered: Category Date Time Status CHEST X-RAY PORTABLE* [RAD] Stat Radiology 07/24/17 19:59 Taken *DC/Admit/Observation/Transfer <Pasotra Medina - Last Filed: 07/24/17 20:23> - Discharge Dispostion Admit: Yes <Ren Hernandez I - Last Filed: 07/24/17 21:08> Diagnosis at time of Disposition: Chest pain - Discharge Dispostion Condition at time of disposition: Stable - Attestations Scribe Attestion: 07/24/17 20:16 Documentation prepared by Pastora Medina, acting as nuclear medical tech for Ren Hernandez MD (Pastora Medina)
[2017-07-24 19:58] VITALS: TEMP 97.6; BMI 27.3
[2017-07-24 20:34] LABS: BASO % 0.6 % (0-2.0); EOS % 1.9 % (0-4.5); HEMATOCRIT 34.5 % (35.4-49); HEMOGLOBIN 10.9 GM/dl (11.7-16.9); MCHC 31.7 g/dl (32.0-35.9); MEAN CELL VOLUME 75.7 fl (80-96); MONO % 8.6 % (3.8-10.2); NEUT % 68.9 % (42.8-82.8); PLATELET COUNT 373 K/MM3 (134-434); RBC 4.56 M/mm3 (4.00-5.60); RDW 14.6 % (11.9-15.9); WHITE BLOOD COUNT 8.4 K/mm3 (4.0-10.8)
[2017-07-24 20:34] LABS: URINE BILIRUBIN Negative (NEGATIVE); URINE GLUCOSE (UA) Negative (NEGATIVE); URINE KETONE Trace (NEGATIVE); URINE NITRITE Negative (NEGATIVE); URINE PROTEIN Negative (NEGATIVE); URINE UROBILINOGEN 0.2 (0.2-1.0)
[2017-07-24 20:39] LABS: URINE APPEARANCE HAZY; URINE BLOOD 2+ (NEGATIVE); URINE COLOR YELLOW
[2017-07-24 20:47] LABS: ALBUMIN 3.8 g/dl (3.5-5.0); ALK PHOS 65 U/L (32-92); ANION GAP 7 (8-16); BILIRUBIN,TOTAL 0.5 mg/dl (0.2-1.0); BLOOD UREA NITROGEN 30 mg/dl (7-18); CALCIUM 9.2 mg/dl (8.4-10.2); CHLORIDE 106 mmol/L (98-107); CO2 25 mmol/L (22-28); CREATININE 1.2 mg/dl (0.6-1.3); GLUCOSE,RANDOM 106 mg/dl (74-106); POTASSIUM 4.4 mmol/L (3.5-5.1); SGOT/AST 15 U/L (10-42); SGPT/ALT 11 U/L (10-40); SODIUM 138 mmol/L (136-145); TOT PROT 7.3 g/dl (6.4-8.3)
[2017-07-24 20:47] LABS: AMORP URATES FEW /hpf (NONE SEEN); EPI CELLS FEW /HPF; URINE BACTERIA FEW /hpf (NEGATIVE); URINE RBC 15-30 /hpf (0-3); URINE WBC 0-3 (0-2)
[2017-07-24 21:00] LABS: TROPONIN I (DFP) < 0.03 ng/ml (0.03-0.50)
[2017-07-24] MEDS ORDERED: SODIUM CHLORIDE 1,000 ML IV ONE (21:28)
[2017-07-24 21:38] VITALS: BP 111/66; PULSE 78
--- NOTE | 2017-07-24 21:42 | PDOC ---
*Physical Exam - Vital Signs Last Vital Signs Temp Pulse Resp BP Pulse Ox 97.6 F 70 22 157/70 98 07/24/17 19:51 07/24/17 19:51 07/24/17 19:51 07/24/17 19:51 07/24/17 20:22 ED Treatment Course - LABORATORY CBC & Chemistry Diagram: 07/24/17 20:22 07/24/17 20:22 - ADDITIONAL ORDERS Additional order review: Laboratory Results 07/24/17 07/24/17 07/24/17 20:30 20:22 20:22 Sodium 138 Potassium 4.4 Chloride 106 Carbon Dioxide 25 Anion Gap 7 L BUN 30 H Creatinine 1.2 Creat Clearance w eGFR 57.41 Random Glucose 106 Calcium 9.2 Total Bilirubin 0.5 D AST 15 ALT 11 Alkaline Phosphatase 65 Creatine Kinase 56 Troponin I < 0.03 L Total Protein 7.3 Albumin 3.8 Urine Color Yellow Urine Appearance Hazy Urine pH 5.0 Ur Specific [place] 1.025 Urine Protein Negative Urine Glucose (UA) Negative Urine Ketones Trace Urine Blood 2+ H Urine Nitrite Negative Urine Bilirubin Negative Urine Urobilinogen 0.2 Urine RBC 15-30 Urine WBC 0-3 Ur Epithelial Cells Few Amorphous Urates Few Urine Bacteria Few Urine Other 07/24/17 20:22 RBC 4.56 MCV 75.7 L MCHC 31.7 L RDW 14.6 MPV 9.0 Neutrophils % 68.9 Lymphocytes % 20.0 Monocytes % 8.6 Eosinophils % 1.9 Basophils % 0.6 - RADIOLOGY Radiology Studies Ordered: Category Date Time Status CHEST X-RAY PORTABLE* [RAD] Stat Radiology 07/24/17 19:59 Taken Progress Note - Progress Note Progress Note: After the decision was made to admit the patient the family decided that the patient would not do well as an inpatient secondary to his dementia and back that he tends to become violent. So the family made the decision to sign the patient out AGAINST MEDICAL ADVICE. The family understood that by signing him out AGAINST MEDICAL ADVICE that he may have a heart attack that he may that he may have permanent irreversible damage and disability as a result of an adverse event. Family except possibility for patient post signing him out AGAINST MEDICAL ADVICE Family is aware that at any time if they changed her mind they can bring the patient back and he can be admitted *DC/Admit/Observation/Transfer Diagnosis at time of Disposition: Chest pain - Discharge Dispostion Disposition: AGAINST MEDICAL ADVICE Condition at time of disposition: Stable Decision to Admit order Date/Time: Decision to Admit Order Category Date Time Status Decision to Admit to Hospital Routine Admission 07/24/17 21:07 Active - Referrals - Patient Instructions Additional Instructions: You are signing Mr. Aaron Nails out from the hospital AGAINST MEDICAL ADVICE. Secondary to Mr. Nails's underlying mental condition of dementia he is unable to understand and signed him out himself out AGAINST MEDICAL ADVICE as his healthcare proxy you are making the decision to take him out AGAINST MEDICAL ADVICE. By signing him out AGAINST MEDICAL ADVICE you accept responsibility for anything that happens to him after he leaves the hospital including disability or . If any time you change your mind please return to the emergency room. - Post Discharge Activity
--- NOTE | 2017-07-26 10:46 | EKG ---
Test Reason : Blood Pressure : / mmHG Vent. Rate : 074 BPM Atrial Rate : 074 BPM P-R Int : 176 ms QRS Dur : 082 ms QT Int : 384 ms P-R-T Axes : 046 -15 080 degrees QTc Int : 426 ms SINUS RHYTHM WITH OCCASIONAL PREMATURE VENTRICULAR COMPLEXES NONSPECIFIC ST AND T WAVE ABNORMALITY WHEN COMPARED WITH ECG OF 19-OCT-2016 23:07, NO SIGNIFICANT CHANGE WAS FOUND Confirmed by MD REYMUNDO, TEJA ([id number]) on 07/26/2017 10:46:24 AM Referred By: UBALDO RHOADES Confirmed By:TEJA DWYER MD
== END 2017-07-24 21:55 | disposition left against medical advice (07) ==
LOC: FER 19:48
DX: R07.9 Chest pain, unspecified (principal); G30.9 Alzheimer's disease, unspecified; F02.80 Dementia in other diseases classified elsewhere, unspecified severity, without behavioral disturbance, psychotic disturbance, mood disturbance, and anxiety; I10 Essential (primary) hypertension; Z95.5 Presence of coronary angioplasty implant and graft; I25.10 Atherosclerotic heart disease of native coronary artery without angina pectoris; Z87.891 Personal history of nicotine dependence
CPT/HCPCS: 36415; 71045-TC; 80053; 81003; 81015; 82550; 84484; 85025; 93005; 99284-25

== ENCOUNTER 2017-07-25 10:55 | Emergency (ER) | payer OTHER ==
--- NOTE | 2017-07-25 11:01 | PDOC ---
History of Present Illness - General Chief Complaint: Revisit, Lab Variance Stated Complaint: REVISIT ABNORMAL LABS Time Seen by Provider: 07/25/17 11:00 History Source: Patient, Family Exam Limitations: Dementia - History of Present Illness Initial Comments: 87 yo M history dementia, HTN presents following an ED visit yesterday. Patient has dementia, unable to recall the events at this time. As per family, he was c/ o chest pain yesterday during dinner. He presented to ED, had labs, EKG, and chest x-ray, all within normal limits. Plan was for admission for cardiac workup , however, family took him home yesterday against medical advice, as he has history of combative behavior in hospital, and he was feeling well. He has not complained of anything since then, so family returned to ED with him for remainder of workup (repeat cardiac enzymes). He is currently at baseline, no complaints today. Of note, he tends to minimize symptoms historically- had a history of sepsis due to cholecystitis and only complained of minimal pain, appeared well. Past History - Past Medical History Allergies/Adverse Reactions: Allergies Allergy/AdvReac Type Severity Reaction Status Date / Time No Known Allergies Allergy Verified 07/25/17 10:57 Home Medications: Ambulatory Orders Aspirin [Aspir 81] 81 mg PO DAILY 05/12/16 Cholecalciferol (Vitamin D3) [Vitamin D3] 2,000 unit PO DAILY capsule 02/15/17 Lisinopril [Prinivil -] 2.5 mg PO DAILY #0 tablet 02/15/17 Metoprolol Succinate 25 mg PO DAILY 02/15/17 COPD: No Dementia: Yes (ALZHEIMERS) HTN: Yes Hypercholesterolemia: Yes - Surgical History Cholecystectomy: Yes - Immunization History Immunization Up to Date: Yes - Suicide/Smoking/Psychosocial Hx Smoking History: Former smoker Have you smoked in the past 12 months: No If you are a former smoker, when did you quit?: 40 YEARS Hx Alcohol Use: Yes (DAILY) Drug/Substance Use Hx: No Substance Use Type: None Hx Substance Use Treatment: No Review of Systems - Review of Systems Able to Perform ROS?: No (dementia) *Physical Exam - Physical Exam Comments: GENERAL: Awake, alert, and oriented to person, in no acute distress HEAD: No signs of trauma EYES: PERRLA, EOMI, sclera anicteric, conjunctiva clear ENT: Auricles normal inspection, hearing grossly normal, nares patent, oropharynx clear without exudates. Moist mucosa NECK: Normal ROM, supple, no lymphadenopathy, JVD, or masses LUNGS: Breath sounds equal, clear to auscultation bilaterally. No wheezes, and no crackles HEART: Regular rate and rhythm, normal S1 and S2, no murmurs, rubs or gallops ABDOMEN: Soft, nontender, normoactive bowel sounds. No guarding, no rebound. No masses EXTREMITIES: Normal range of motion, no edema. No clubbing or cyanosis. No cords, erythema, or tenderness NEUROLOGICAL: Cranial nerves II through XII grossly intact. Normal speech, normal gait. Motor and sensation intact. SKIN: Warm, Dry, normal turgor, no rashes or lesions noted. ED Treatment Course - LABORATORY CBC & Chemistry Diagram: 07/25/17 11:15 07/25/17 11:15 Medical Decision Making - Medical Decision Making 07/25/17 11:54 Chart from yesterday reviewed. Noted to have microscopic hematuria- may be possible that he had a kidney stone causing his pain. Unclear as he is poor historian, minimizes symptoms, and has dementia. Will repeat labwork from yesterday and add lactate, cultures. Will obtain CT a/p to evaluate for possible stone. If all wnl, will DC home with close outpatient f/u. *DC/Admit/Observation/Transfer Diagnosis at time of Disposition: Atypical chest pain - Discharge Dispostion Disposition: HOME Condition at time of disposition: Stable Admit: No - Referrals - Patient Instructions - Post Discharge Activity
[2017-07-25 11:03] VITALS: BP 136/64; PULSE 59; TEMP 97.3; BMI 27.3
[2017-07-25 11:41] LABS: BASO % 0.5 % (0-2.0); EOS % 1.2 % (0-4.5); HEMATOCRIT 34.5 % (35.4-49); HEMOGLOBIN 10.9 GM/dl (11.7-16.9); LYMPH % 17.8 % (8-40); MCHC 31.8 g/dl (32.0-35.9); MEAN CELL VOLUME 75.4 fl (80-96); MEAN PLT VOLUME 9.1 fl (7.5-11.1); NEUT % 71.5 % (42.8-82.8); PLATELET COUNT 372 K/MM3 (134-434); RBC 4.57 M/mm3 (4.00-5.60); RDW 14.8 % (11.9-15.9); WHITE BLOOD COUNT 8.2 K/mm3 (4.0-10.8)
[2017-07-25 11:43] LABS: ALBUMIN 3.6 g/dl (3.5-5.0); ALK PHOS 67 U/L (32-92); ANION GAP 8 (8-16); BILIRUBIN,TOTAL 0.5 mg/dl (0.2-1.0); BLOOD UREA NITROGEN 30 mg/dl (7-18); CALCIUM 9.4 mg/dl (8.4-10.2); CHLORIDE 106 mmol/L (98-107); CO2 25 mmol/L (22-28); CREATININE 1.1 mg/dl (0.6-1.3); GLUCOSE,RANDOM 95 mg/dl (74-106); LIPASE 19 U/L (22-51); SGOT/AST 17 U/L (10-42); SGPT/ALT 8 U/L (10-40); SODIUM 139 mmol/L (136-145); TOT PROT 7.1 g/dl (6.4-8.3)
[2017-07-25 12:00] LABS: URINE APPEARANCE Clear; URINE BILIRUBIN Negative (NEGATIVE); URINE BLOOD Negative (NEGATIVE); URINE COLOR YELLOW; URINE GLUCOSE (UA) Negative (NEGATIVE); URINE KETONE Negative (NEGATIVE); URINE NITRITE Negative (NEGATIVE); URINE PROTEIN Negative (NEGATIVE); URINE UROBILINOGEN 0.2 (0.2-1.0)
[2017-07-25 12:04] LABS: TROPONIN I (DFP) < 0.03 ng/ml (0.03-0.50)
== END 2017-07-25 13:30 | disposition home or self-care (01) ==
LOC: FER 10:55
DX: R07.89 Other chest pain (principal); G30.9 Alzheimer's disease, unspecified; F02.80 Dementia in other diseases classified elsewhere, unspecified severity, without behavioral disturbance, psychotic disturbance, mood disturbance, and anxiety; I10 Essential (primary) hypertension; E78.00 Pure hypercholesterolemia, unspecified; Z87.891 Personal history of nicotine dependence
CPT/HCPCS: 36415; 74176; 80053; 81003; 82550; 83605; 83690; 84484; 85025; 87040; 87086; 87186; 99284-25

== ENCOUNTER 2019-05-15 20:44 | Emergency (ER) | payer OTHER ==
[2019-05-15 21:00] VITALS: BP 138/73; PULSE 77; TEMP 98.3; BMI 25.1
[2019-05-15] MEDS ORDERED: SODIUM CHLORIDE 1,000 ML IV ONE (21:26)
[2019-05-15 21:38] LABS: BASO % 0.7 % (0-2.0); EOS % 0.6 % (0-4.5); HEMATOCRIT 39.3 % (35.4-49); HEMOGLOBIN 12.5 GM/dl (11.7-16.9); MCH 24.6 pg (25.7-33.7); MCHC 31.8 g/dl (32.0-35.9); MEAN CELL VOLUME 77.3 fl (80-96); MEAN PLT VOLUME 9.2 fl (7.5-11.1); MONO % 7.1 % (3.8-10.2); NEUT % 72.6 % (42.8-82.8); PLATELET COUNT 344 K/MM3 (134-434); RBC 5.09 M/mm3 (4.00-5.60); RDW 18.2 % (11.9-15.9); WHITE BLOOD COUNT 9.6 K/mm3 (4.0-10.8)
[2019-05-15 21:46] LABS: ALBUMIN 3.6 g/dl (3.4-5.0); BILIRUBIN,TOTAL 0.4 mg/dl (0.2-1); CALCIUM 9.1 mg/dl (8.5-10); CREATININE 1.3 mg/dl (0.55-1.3); POTASSIUM 4.2 mmol/L (3.5-5.1); TOT PROT 7.1 g/dl (6.4-8.2)
--- NOTE | 2019-05-15 23:09 | PDOC ---
Documentation entered by Teo Antonio SCRIBE, acting as scribe for Ren Hernandez MD. Ren Hernandez MD: This documentation has been prepared by the Paco pineda Aiswarya, SCRIBE, under my direction and personally reviewed by me in its entirety. I confirm that the documentation accurately reflects all work, treatment, procedures, and medical decision making performed by me. History of Present Illness - General Chief Complaint: Altered Mental Status Stated Complaint: AMS, WEAKNESS Time Seen by Provider: 05/15/19 20:48 History Source: Patient, Family Exam Limitations: Dementia - History of Present Illness Initial Comments: 05/15/19 21:56 The patient is a 89 year old male, with a significant PMH of CAD, [place], alzheimers , HTN, and HLD who presents to the emergency department with altered mental status that began tonight. Per patients family, patient endorses associated symptoms of generalized weakness, unstable gait, and disoriented than usual.The patient denies chest pain, shortness of breath, headache and dizziness.Denies fever, chills, nausea, vomit, diarrhea and constipation.Denies dysuria, frequency, urgency and hematuria. PAST MEDICAL HISTORY: no significant history PAST SURGICAL HISTORY: cardiac stents and cholecystectomy FAMILY HISTORY: no pertinent history SOCIAL HISTORY: Pt lives with family and is employed. MEDICATIONS: reviewed ALLERGIES: As per nursing notes Adult ROS General: +weakness . No fevers or chills, no weight loss HEENT: No change in vision. No sore throat,. No ear pain CardioVascular: No chest pain or shortness of breath Respiratory:No cough, or wheezing. Gastrointestinal: no nausea, vomiting, diarrhea or constipation, No rectal bleeding Genitourinary: No dysuria, hematuria, or frequency Musculoskeletal: No joint or muscle pain or swelling Neurologic: +disoriented.No headache, vertigo, dizziness Psychiatric: nor depression Skin: No rashes or easy bruising Endocrine: no increased thirst or abnormal weight change Allergic: no skin or latex allergy All other systems reviewed and normal Adult Exam: General: Well-nourished well-developed individual, no acute distress HEENT: Throat: Normal, tonsils normal, no erythema or exudate Neck: Supple, no meningeal signs, no lymphadenopathy Eyes::Pupils equal reactive and round, extraocular motion intact Chest: Nontender to palpation Cardiac: S1-S2 normal, regular rate and rhythm, no murmurs rubs or gallops Respiratory: Lungs clear to auscultation bilateral Abdomen: Soft, nondistended, normal bowel sounds, nontender to palpation diffusely Extremities: Warm, dry, no cyanosis, clubbing, or edema Skin: No rashes Neuro: +oriented x1. Awake but confused. Unable to answer questions coherently. Psych: Normal mood and affect 05/15/19 23:06 Assessment and plan: This is an 89-year-old male brought in by his family via EMS for evaluation of weakness and confusion. Here the emergency room patient was acutely confused and oriented x1 only. Work-up was initiated and obtained including CBC, comp, urine culture, urinalysis, blood culture, head CT, EKG and chest x-ray. EKG showed normal sinus rhythm at a rate of [address]-T wave changes Chest x-ray with poor a poor inspiration but no acute pathology Head CT negative for any acute pathology Patient was able to ambulate at his baseline with some assistance as per family. Family prefers to take patient home patient discharged home with his family. Past History - Past Medical History Allergies/Adverse Reactions: Allergies Allergy/AdvReac Type Severity Reaction Status Date / Time No Known Allergies Allergy Verified 05/15/19 20:45 Home Medications: Ambulatory Orders Aspirin [Aspir 81] 81 mg PO DAILY 05/12/16 Cholecalciferol (Vitamin D3) [Vitamin D3] 2,000 unit PO DAILY capsule 02/15/17 Lisinopril [Prinivil -] 2.5 mg PO DAILY #0 tablet 02/15/17 Metoprolol Succinate 25 mg PO DAILY 02/15/17 L.acidoph,Paracasei, B.lactis [Probiotic] 1 each PO DAILY 05/15/19 Tamsulosin HCl [Flomax] 0.4 mg PO DAILY 05/15/19 Tamsulosin HCl [Flomax] 0.4 mg PO DAILY 05/15/19 Cardiac Disorders: Yes (CAD, [place]) COPD: No Dementia: Yes (ALZHEIMERS) HTN: Yes Hypercholesterolemia: Yes - Surgical History Cardiac Surgery: Yes (STENTS) Cholecystectomy: Yes - Immunization History Immunization Up to Date: Yes - Psycho Social/Smoking Cessation Hx Smoking History: Former smoker Have you smoked in the past 12 months: No If you are a former smoker, when did you quit?: 40 YEARS Information on smoking cessation initiated: No Hx Alcohol Use: No Drug/Substance Use Hx: No Substance Use Type: None Hx Substance Use Treatment: No *Physical Exam - Vital Signs Last Vital Signs Temp Pulse Resp BP Pulse Ox 98.3 F 77 18 138/73 97 05/15/19 20:44 05/15/19 20:44 05/15/19 20:44 05/15/19 20:44 05/15/19 20:44 ED Treatment Course - LABORATORY CBC & Chemistry Diagram: 05/15/19 21:15 05/15/19 21:15 - ADDITIONAL ORDERS Additional order review: Laboratory Results 05/15/19 05/15/19 05/15/19 22:10 21:15 21:15 Sodium 138 Potassium 4.2 Chloride 105 Carbon Dioxide 22 Anion Gap 11 BUN 27.0 H Creatinine 1.3 Est GFR (CKD-EPI)AfAm 56.46 Est GFR (CKD-EPI)NonAf 48.72 Random Glucose 116 H Calcium 9.1 Total Bilirubin 0.4 AST 24 ALT 15 Alkaline Phosphatase 68 Creatine Kinase 598 H Creatine Kinase Index 1.5 CK-MB (CK-2) 9.2 H Troponin I < 0.03 Total Protein 7.1 Albumin 3.6 Urine Color Yellow Urine Appearance Clear Urine pH 5.0 Urine Protein Negative Urine Glucose (UA) Negative Urine Ketones Negative Urine Blood Negative Urine Nitrite Negative Urine Bilirubin Negative Urine Urobilinogen 0.2 Ur Leukocyte Esterase Negative 05/15/19 21:15 RBC 5.09 MCV 77.3 L MCHC 31.8 L RDW 18.2 H MPV 9.2 Neutrophils % 72.6 Lymphocytes % 19.0 Monocytes % 7.1 Eosinophils % 0.6 Basophils % 0.7 - RADIOLOGY Radiology Studies Ordered: Category Date Time Status HEAD CT WITHOUT CONTRAST [CT] Stat CT Scan 05/15/19 21:05 Completed CHEST X-RAY PORTABLE* [RAD] Stat Radiology 05/15/19 21:06 Taken - Medications Given in the ED: ED Medications Discontinued Medications Generic Name Dose Route Start Last Admin Trade Name Freq PRN Reason Stop Dose Admin Sodium Chloride 1,000 mls @ 1,000 mls/hr 05/15/19 21:26 05/15/19 21:27 Normal Saline - IV 05/15/19 22:25 1,000 mls/hr .Q1H ONE Administration Discharge - Discharge Information Problems reviewed: Yes Clinical Impression/Diagnosis: Weakness Dementia Qualifiers: Dementia type: Alzheimer's disease Alzheimer's disease onset: unspecified onset Dementia behavioral disturbance: without behavioral disturbance Qualified Code(s): G30.9 - Alzheimer's disease, unspecified; F02.80 - Dementia in other diseases classified elsewhere without behavioral disturbance Condition: Stable Disposition: HOME - Admission No - Follow up/Referral Referrals: Pollo Lyle MD [Primary Care Provider] - - Patient Discharge Instructions Additional Instructions: Return to the emergency department immediately with ANY new, persistent or worsening symptoms. Continue any medications as previously prescribed by your physician. You should follow up with your primary doctor as soon as possible regarding today's emergency department visit. . Please make sure your doctor reviews the results of your emergency evaluation. Thank you for coming to the Emergency Department today for your care. It was a pleasure to see you today. Please note that your evaluation is INCOMPLETE until you follow-up with your doctor. - Post Discharge Activity
--- NOTE | 2019-05-16 11:07 | EKG ---
Test Reason : Blood Pressure : / mmHG Vent. Rate : 075 BPM Atrial Rate : 075 BPM P-R Int : 178 ms QRS Dur : 084 ms QT Int : 372 ms P-R-T Axes : 026 -17 008 degrees QTc Int : 415 ms NORMAL SINUS RHYTHM MINIMAL VOLTAGE CRITERIA FOR LVH, MAY BE NORMAL VARIANT CANNOT RULE OUT ANTERIOR INFARCT , AGE UNDETERMINED ABNORMAL ECG WHEN COMPARED WITH ECG OF 24-JUL-2017 19:58, PREMATURE VENTRICULAR COMPLEXES ARE NO LONGER PRESENT Confirmed by Giuseppe Acharya MD ([id number]) on 05/16/2019 11:06:41 AM Referred By: UBALDO RHOADES Confirmed By:Giuseppe Acharya MD
== END 2019-05-15 23:17 | disposition home or self-care (01) ==
LOC: FER 20:44
PROC: 3E0337Z Introduction of Electrolytic and Water Balance Substance into Peripheral Vein, Percutaneous Approach (ICD-10-PCS; principal; 2019-05-15)
DX: G30.9 Alzheimer's disease, unspecified (principal); F02.80 Dementia in other diseases classified elsewhere, unspecified severity, without behavioral disturbance, psychotic disturbance, mood disturbance, and anxiety; Z87.891 Personal history of nicotine dependence; I10 Essential (primary) hypertension; Z95.0 Presence of cardiac pacemaker; I25.2 Old myocardial infarction; I25.10 Atherosclerotic heart disease of native coronary artery without angina pectoris; E78.00 Pure hypercholesterolemia, unspecified
CPT/HCPCS: 36415; 70450-TC; 71045-TC-FY; 80053; 81003; 82550; 82553; 83605; 84484; 85025; 87040; 87076; 87086; 93005; 96360; 99282-25; J7030

== ENCOUNTER 2020-03-17 21:19 | Inpatient (IN) | payer OTHER ==
[2020-03-17 21:38] LABS: BASO % 1.7 % (0-2.0); EOS % 0.7 % (0-4.5); HEMATOCRIT 42.4 % (35.4-49); HEMOGLOBIN 14.1 GM/dl (11.7-16.9); LYMPH % 9.4 % (8-40); MCH 28.8 pg (25.7-33.7); MCHC 33.2 g/dl (32.0-35.9); MEAN CELL VOLUME 86.9 fl (80-96); MEAN PLT VOLUME 9.2 fl (7.5-11.1); MONO % 4.3 % (3.8-10.2); NEUT % 83.9 % (42.8-82.8); PLATELET COUNT 273 K/MM3 (134-434); RBC 4.88 M/mm3 (4.00-5.60); WHITE BLOOD COUNT 13.1 K/mm3 (4.0-10.8)
[2020-03-17 21:41] VITALS: BMI 24.3
[2020-03-17 21:58] LABS: ACTIVATED PTT 29.6 SECONDS (25.2-36.5)
[2020-03-17 22:02] LABS: ALBUMIN 3.6 g/dl (3.4-5.0); BILIRUBIN,TOTAL 0.7 mg/dl (0.2-1); CALCIUM 8.9 mg/dl (8.5-10); CREATININE 1.6 mg/dl (0.55-1.3); POTASSIUM 4.4 mmol/L (3.5-5.1)
[2020-03-17 22:03] LABS: INR 1.14 (0.82-1.09); PROTHROMBIN TIME (PATIENT) 12.7 SEC (10.2-13.0)
--- NOTE | 2020-03-17 22:07 | PDOC ---
Documentation entered by Tamiko Ann SCRIBE, acting as scribe for Nadine Alfredo MD. Nadine Alfredo MD: This documentation has been prepared by the scribe, Tamiko Ann SCRIBE, under my direction and personally reviewed by me in its entirety. I confirm that the documentation accurately reflects all work, treatment, procedures, and medical decision making performed by me. History of Present Illness - General Chief Complaint: Weakness Stated Complaint: diarrhea/ lethargy Time Seen by Provider: 03/17/20 21:21 History Source: Family - History of Present Illness Initial Comments: 03/17/20 21:37 The patient is an 89-year-old male with a past medical history significant for BPH, CAD s/p stents, [place] (2013), HTN, and Alzheimer's who presents to the emergency department via EMS from home with diarrhea and lethargy. History is obtained via family ( and daughter). Unable to obtain history from the patient due to clinical condition. The patients been having nonbloody, brownish, foul-smelling diarrhea since (3 days ago), associated with increased lethargy and decreased responsiveness. The family reports the patient has dementia at baseline, however, the past few days hes been more lethargic, unresponsive, and not like himself. The daughter reports the patient was noted to be less responsive today. The family reports the patient's been having increased leg swelling in the past few days. The daughter reports the patient is urinating fine and tolerating PO without nausea or vomiting. The family reports this isnt similar to prior episodes of dehydration. family reports the patient takes .5mg of Ativan to sleep nightly for the past few months. Denies recent antibiotics use. Denies fever or chills. Denies sick contact. Denies nausea or vomiting. Allergies:NKA Surgical history: cholecystectomy and cardiac stents. PCP: Dr. Lyle Machinist Outside: Dr. Arroyo Past History - Medical History Allergies/Adverse Reactions: Allergies Allergy/AdvReac Type Severity Reaction Status Date / Time No Known Allergies Allergy Verified 03/17/20 21:42 Home Medications: Ambulatory Orders Lisinopril [Prinivil -] 2.5 mg PO DAILY #0 tablet 02/15/17 Metoprolol Succinate 25 mg PO DAILY 02/15/17 Tamsulosin HCl [Flomax] 0.4 mg PO DAILY 05/15/19 Cardiac Disorders: Yes (CAD, [place]) COPD: No Dementia: Yes (ALZHEIMERS) HTN: Yes Hypercholesterolemia: Yes - Surgical History Cardiac Surgery: Yes (STENTS) Cholecystectomy: Yes - Immunization History Immunization Up to Date: Yes - Psycho-Social/Smoking History Smoking History: Former smoker Have you smoked in the past 12 months: No If you are a former smoker, when did you quit?: 40 YEARS Review of Systems - Review of Systems Able to Perform ROS?: Yes Comments:: 03/17/20 21:47 GENERAL/CONSTITUTIONAL: No fever or chills. +lethargic. HEAD, EYES, EARS, NOSE AND THROAT: No change in vision. No ear pain or discharge. CARDIOVASCULAR: No chest pain or shortness of breath. RESPIRATORY: No cough, wheezing, or hemoptysis. GASTROINTESTINAL: +diarrhea. No nausea, vomiting, or constipation. GENITOURINARY: No change in urination. MUSCULOSKELETAL: +leg swelling. No other joint or muscle swelling. . SKIN: No rash NEUROLOGIC: +decreased responsiveness. +lethargic. No loss of consciousness, or change in strength/sensation. ENDOCRINE: No abnormal weight change. HEMATOLOGIC/LYMPHATIC: No anemia, easy bleeding, or history of blood clots. ALLERGIC/IMMUNOLOGIC: No hives or skin allergy. *Physical Exam - Physical Exam 03/17/20 21:47 GENERAL: Awake, alert, and fully oriented, in no acute distress HEAD: normocephalic, atraumatic. NECK: Normal ROM, supple, no lymphadenopathy, JVD, or masses LUNGS: Breath sounds equal, clear to auscultation bilaterally. No wheezes, and no crackles HEART: Regular rate and rhythm, normal S1 and S2 ABDOMEN: +soft, questionable left sided tenderness, no rebound or masses. EXTREMITIES: +skin tear to right anterior lower leg without active bleeding. No lower extremity pitting edema. DT pulses intact. Moving all extremities. NEUROLOGICAL: Awake, largely nonverbal with occasional one to two word responses. facial symmetry, moving all extremities. no focal deficits. SKIN: Warm, Dry, no rashes or lesions noted. ED Treatment Course - LABORATORY CBC & Chemistry Diagram: 03/17/20 21:34 03/17/20 21:55 Medical Decision Making - Medical Decision Making 03/17/20 22:02 89 yo M here with AMS possibly 2/2 infection such as enteritis, diverticulitis or colitis. ALso possible UTI or PNA although family denies any cough or evidence of SOB and patient with unremarkable lung exam. Will also get CT head to r/o ICH as etiology for AMS. Less likely ACS and EKG without ischemic changes. Plan: -labs -urine -COVID testing -CT head -CT a/p -cxr -ativan as needed for agitation (daughter reports patient responds well to ativan for agitation) -likely admission for AMS This clinical encounter is taking place during a federal and state health care emergency attributable to the novel [place] Virus pandemic. The [place] of the Department of Health and Human Services has declared, pursuant to the Public Health Service Act 319F-3 (42 U.S.C. 247d-6d), that a covered persons activities related to medical countermeasures against COVID-19 will be immune from liability under Federal and State law. 03/17/20 23:[address] a/p with possible early/mild diverticulitis. Given new diarrhea and left sided abdominal tenderness will admit and treat for diverticulitis with cipro/flagyl. 03/18/20 00:09 Case discussed with tylerhony admitting. Patient to be admitted to medicine floors. Discharge - Discharge Information Problems reviewed: Yes Clinical Impression/Diagnosis: Diverticulitis Condition: Stable - Admission Yes - Follow up/Referral Referrals: Pollo Lyle MD [Primary Care Provider] - - Patient Discharge Instructions - Post Discharge Activity
[2020-03-17 22:18] LABS: EPITHELIAL CELLS RARE /hpf
[2020-03-17] MEDS ORDERED: SODIUM CHLORIDE 0.9% 500 ML INFUS.BAG IV ONE (22:47)
[2020-03-17] MEDS ORDERED: CIPROFLOXACIN 400 MG/D5W 400 MG/200 ML IVPB IVPB ONE (23:01)
[2020-03-18] MEDS ORDERED: DEXTROSE 5%-0.45% SALINE 1,000 ML IV SCH (00:15)
[2020-03-18] MEDS ORDERED: LORazepam 2 MG/ML SDV VIAL ONE (01:41)
[2020-03-18 08:26] LABS: BASO % 0.8 % (0-2.0); HEMATOCRIT 38.5 % (35.4-49); HEMOGLOBIN 12.6 GM/dl (11.7-16.9); LYMPH % 16.5 % (8-40); MCH 28.1 pg (25.7-33.7); MCHC 32.9 g/dl (32.0-35.9); MEAN CELL VOLUME 85.6 fl (80-96); MEAN PLT VOLUME 8.8 fl (7.5-11.1); MONO % 9.3 % (3.8-10.2); NEUT % 72.4 % (42.8-82.8); PLATELET COUNT 230 K/MM3 (134-434); RDW 14.9 % (11.9-15.9); WHITE BLOOD COUNT 7.7 K/mm3 (4.0-10.8)
[2020-03-18 08:43] LABS: BILIRUBIN,TOTAL 0.6 mg/dl (0.2-1); CALCIUM 8.3 mg/dl (8.5-10); CREATININE 1.4 mg/dl (0.55-1.3); POTASSIUM 3.5 mmol/L (3.5-5.1); TOT PROT 6.2 g/dl (6.4-8.2)
--- NOTE | 2020-03-18 09:04 | PN ---
Progress Note (short form) - Note Progress Note: Patient seen and chart/labs reviewed with consult dictated. Patient is an 89 yo male with dementia admitted with change in mental status, and recent diarrhea ?etiology (and leukocytosis) On IV antibiotics with CT abdomen report pending. WBC improved today and abdomen soft +BS nontender. ?underlying colitis?ischemic?infectious vs diverticulitis Would await CT abdomen/pelvis report by Radiology Monitor abdominal exam and continue IV antibiotics Consider starting on clear liquid diet pending above
--- NOTE | 2020-03-18 09:06 | HP ---
CHIEF COMPLAINT: Diarrhea, Weakness PCP: Dr Lyle HISTORY OF PRESENT ILLNESS: This is an 89-year-old male with a history of BPH, CAD s/p stents, [place] (2013), HTN, and Alzheimer's dementia who presented to the ED via EMS from home yesterday with with diarrhea and lethargy. History was obtained from the family ( and daughter) at that time, as the patient is unable to participate. He has reportedly been having nonbloody, brownish, foul- smelling diarrhea increased lethargy and decreased responsiveness. The family reported the patient has dementia at baseline, however, the past few days hes been more lethargic, unresponsive, and not like himself. The family also reported increased leg swelling in the past few days. The daughter reports the patient is urinating fine and tolerating PO without nausea or vomiting. Allergies: NKDA Surgical history: Cholecystectomy, cardiac stents PCP: Dr. Lyle Sheet Metal Smith: Dr. Arroyo ER course was notable for: (1) Serum Cr 1.6 (baseline from prior admits appears to be about 1.2) (2) Head CT: no acute intracranial process (3) CTAP: Possible mild diverticulitis, no other acute intra-abdominal pathology Recent Travel: None Smoking: Quit 43 years ago Alcohol: Occasional Drugs: Denies Allergies No Known Allergies Allergy (Verified 03/17/20 21:42) HOME MEDICATIONS: Home Medications Medication Instructions Recorded Lisinopril [Prinivil -] 2.5 mg PO DAILY #0 tablet 02/15/17 Metoprolol Succinate 25 mg PO DAILY 02/15/17 Tamsulosin HCl [Flomax] 0.4 mg PO DAILY 05/15/19 REVIEW OF SYSTEMS Patient is unable to participate PHYSICAL EXAMINATION Vital Signs - 24 hr 03/17/20 03/17/20 03/17/20 21:33 22:12 23:05 Temperature 98.5 F 97.8 F Pulse Rate 85 Pulse Rate [ 84 80 Right] Respiratory 18 19 Rate Blood Pressure 107/55 L Blood Pressure 131/98 105/56 L [Left Arm] O2 Sat by Pulse 99 96 95 Oximetry (%) 03/18/20 03/18/20 03/18/20 00:17 04:10 05:00 Temperature 97.8 F 97.4 F L Pulse Rate 50 L Pulse Rate [ Right] Respiratory 19 20 19 Rate Blood Pressure 120/94 Blood Pressure [Left Arm] O2 Sat by Pulse 95 95 Oximetry (%) 03/18/20 07:28 Temperature Pulse Rate Pulse Rate [ Right] Respiratory 19 Rate Blood Pressure Blood Pressure [Left Arm] O2 Sat by Pulse 95 Oximetry (%) GENERAL: Somnolent, not verbally responsive. Protecting airway. HEAD: Normal with no signs of trauma. EYES: Pupils equal, round and reactive to light, extraocular movements intact, sclera anicteric, conjunctiva clear. No lid lag. EARS, NOSE, THROAT: Ears normal, nares patent, oropharynx clear without exudates. Moist mucous membranes. NECK: Normal range of motion, supple without lymphadenopathy, JVD, or masses. LUNGS: Breath sounds equal, clear to auscultation bilaterally. No wheezes, and no crackles. No accessory muscle use. HEART: Regular rate and rhythm, normal S1 and S2 without murmur, rub or gallop. ABDOMEN: Distended, tympanic. Hyperactive bowel sounds. Grimaces when abdomen palpated (no focal tenderness - generally tender). MUSCULOSKELETAL: Normal range of motion at all joints. No bony deformities or tenderness. No CVA tenderness. UPPER EXTREMITIES: 2+ pulses, warm, well-perfused. No cyanosis. No clubbing. No peripheral edema. LOWER EXTREMITIES: 2+ pulses, warm, well-perfused. Trace peripheral edema. R tibial skin tear. NEUROLOGICAL: Not participating in neurologic exam. SKIN: Warm, dry, normal turgor, no rashes or lesions noted, normal capillary refill. Laboratory Results - last 24 hr 03/17/20 03/17/20 03/17/20 21:24 21:24 21:24 WBC RBC Hgb Hct MCV MCH MCHC RDW Plt Count MPV Absolute Neuts (auto) Neutrophils % Lymphocytes % Monocytes % Eosinophils % Basophils % PT with INR 12.7 INR 1.14 PTT (Actin FS) 29.6 Sodium Potassium Chloride Carbon Dioxide Anion Gap BUN Creatinine Est GFR (CKD-EPI)AfAm Est GFR (CKD-EPI)NonAf Random Glucose Calcium Total Bilirubin AST ALT Alkaline Phosphatase Troponin I < 0.03 Total Protein Albumin Lipase Urine Color Yellow Urine Appearance Clear Urine pH 5.0 Urine Protein Negative Urine Glucose (UA) Negative Urine Ketones Trace Urine Blood Trace-intact Urine Nitrite Negative Urine Bilirubin 1+ H Urine Urobilinogen 0.2 Ur Leukocyte Esterase Negative Urine RBC 5-10 Urine WBC 2-5 Ur Transition Epith Cell Rare Urine Bacteria Rare 03/17/20 03/17/20 03/18/20 21:34 21:55 07:40 WBC 13.1 H 7.7 RBC 4.88 4.50 Hgb 14.1 12.6 Hct 42.4 38.5 MCV 86.9 85.6 MCH 28.8 D 28.1 MCHC 33.2 32.9 RDW 15.0 D 14.9 Plt Count 273 D 230 MPV 9.2 8.8 Absolute Neuts (auto) 11.0 5.5 Neutrophils % 83.9 H 72.4 Lymphocytes % 9.4 D 16.5 D Monocytes % 4.3 9.3 D Eosinophils % 0.7 1.0 Basophils % 1.7 0.8 PT with INR INR PTT (Actin FS) Sodium 136 Potassium 4.4 Chloride 103 Carbon Dioxide 21 Anion Gap 12 BUN 29.0 H Creatinine 1.6 H Est GFR (CKD-EPI)AfAm 43.93 Est GFR (CKD-EPI)NonAf 37.90 Random Glucose 105 Calcium 8.9 Total Bilirubin 0.7 AST 21 ALT 18 Alkaline Phosphatase 85 Troponin I Total Protein 7.0 Albumin 3.6 Lipase 67 L Urine Color Urine Appearance Urine pH Urine Protein Urine Glucose (UA) Urine Ketones Urine Blood Urine Nitrite Urine Bilirubin Urine Urobilinogen Ur Leukocyte Esterase Urine RBC Urine WBC Ur Transition Epith Cell Urine Bacteria 03/18/20 07:40 WBC RBC Hgb Hct MCV MCH MCHC RDW Plt Count MPV Absolute Neuts (auto) Neutrophils % Lymphocytes % Monocytes % Eosinophils % Basophils % PT with INR INR PTT (Actin FS) Sodium 137 Potassium 3.5 Chloride 108 H Carbon Dioxide 20 L Anion Gap 9 BUN 25.0 H Creatinine 1.4 H Est GFR (CKD-EPI)AfAm 51.62 Est GFR (CKD-EPI)NonAf 44.54 Random Glucose 95 Calcium 8.3 L Total Bilirubin 0.6 AST 20 ALT 15 Alkaline Phosphatase 80 Troponin I Total Protein 6.2 L Albumin 3.0 L Lipase Urine Color Urine Appearance Urine pH Urine Protein Urine Glucose (UA) Urine Ketones Urine Blood Urine Nitrite Urine Bilirubin Urine Urobilinogen Ur Leukocyte Esterase Urine RBC Urine WBC Ur Transition Epith Cell Urine Bacteria ASSESSMENT/PLAN: 89-year-old male with advanced dementia admitted with worsening mental status as well as diarrhea. Family Medical History Family History: Unable to Obtain Problem List - Problem (1) Diarrhea Assessment/Plan: -CTAP with possible mild diverticulitis - start ceftriaxone and Flagyl -Follow up stool cultures and c diff -Gentle hydration -Can start clear liquid diet when more awake Code(s): R19.7 - DIARRHEA, UNSPECIFIED (2) Altered mental status Assessment/Plan: -Possibly related to infection/metabolic encephalopathy? -HCT: no acute process -Follow up blood/urine/stool culture -Patient has been taking Ativan at home for insomnia - may be contributing -Close re-evaluation of airway/safety -Neuro consult pending -Discussed with daughter/patient is normally A&O x 0 and minimally conversant at baseline - it can be normal for him to "sleep all day" -Limit benzos as complicate neuro assessment Code(s): R41.82 - ALTERED MENTAL STATUS, UNSPECIFIED (3) Acute kidney injury Assessment/Plan: -Possibly secondary to hypovolemia/dehydration -Avoid nephrotoxins -Dose meds for CrCl 39 -NS 75 mLs/hr Code(s): N17.9 - ACUTE KIDNEY FAILURE, UNSPECIFIED (4) Dementia Code(s): F03.90 - UNSPECIFIED DEMENTIA WITHOUT BEHAVIORAL DISTURBANCE Qualifiers: Dementia type: Alzheimer's disease Alzheimer's disease onset: unspecified onset Dementia behavioral disturbance: without behavioral disturbance Qualified Code(s): G30.9 - Alzheimer's disease, unspecified; F02.80 - Dementia in other diseases classified elsewhere without behavioral disturbance (5) CAD (coronary artery disease) Assessment/Plan: -No active issues Code(s): I25.10 - ATHSCL HEART DISEASE OF [place] CORONARY ARTERY W/O ANG PCTRS (6) DVT prophylaxis Assessment/Plan: -Sqh DNR Discussed with Dr. Lyle Code(s): Z29.9 - ENCOUNTER FOR PROPHYLACTIC MEASURES, UNSPECIFIED Visit type - Medication Review Med list reviewed for High Risk Meds patients 65 and older: Yes - Emergency Visit Emergency Visit: Yes ED Registration Date: 03/18/20 Care time: The patient presented to the Emergency Department on the above date and was hospitalized for further evaluation of their emergent condition. - New Patient This patient is new to me today: No - Critical Care Critical Care patient: No
[2020-03-18] MEDS: HEPARIN NA (PORCINE) 5,000 UNITS/ML 1ML VIAL SQ SCH ×2 (10:10→21:14)
--- NOTE | 2020-03-18 11:21 | EKG ---
Test Reason : Blood Pressure : / mmHG Vent. Rate : 084 BPM Atrial Rate : 084 BPM P-R Int : 176 ms QRS Dur : 082 ms QT Int : 378 ms P-R-T Axes : 027 -11 108 degrees QTc Int : 446 ms SINUS RHYTHM WITH FREQUENT PREMATURE VENTRICULAR COMPLEXES NONSPECIFIC ST AND T WAVE ABNORMALITY ABNORMAL ECG WHEN COMPARED WITH ECG OF 15-MAY-2019 21:28, PREMATURE VENTRICULAR COMPLEXES ARE NOW PRESENT Confirmed by KELSEA GUALLPA, TONEY ([id number]) on 03/18/2020 11:20:53 AM Referred By: KIARA ZAMUDIO Confirmed By:TONEY ENAMORADO MD
[2020-03-18] MEDS ORDERED: CIPROFLOXACIN 400 MG/D5W 400 MG/200 ML IVPB IVPB SCH (12:00)
[2020-03-18] MEDS: SODIUM CHLORIDE 1,000 ML IV SCH (13:04)
[2020-03-18] MEDS ORDERED: cefTRIAXone SODIUM 1 GM VIAL ONE (15:04)
[2020-03-18] MEDS ORDERED: DEXTROSE 5%-WATER - 50 ML IVPB ONE (15:04)
[2020-03-18] MEDS ORDERED: LORazepam 2 MG/ML SDV VIAL IVPUSH ONE (15:35)
[2020-03-18] MEDS: CEFTRIAXONE 1 GM in DEXTROSE 5%-WATER - 50 ML IVPB SCH (16:02)
--- NOTE | 2020-03-18 17:04 | CON.NEURO ---
Consult - Past Medical History Cardio/Vascular: Yes: HTN Renal/: Yes: BPH - Past Surgical History Past Surgical History: Yes: Cholecystectomy - Alcohol/Substance Use Hx Alcohol Use: No - Smoking History Smoking history: Former smoker Have you smoked in the past 12 months: No If you are a former smoker, when did you quit?: 40 YEARS Home Medications - Allergies Allergies/Adverse Reactions: Allergies Allergy/AdvReac Type Severity Reaction Status Date / Time No Known Allergies Allergy Verified 03/17/20 21:42 - Home Medications Home Medications: Ambulatory Orders Lisinopril [Prinivil -] 2.5 mg PO DAILY #0 tablet 02/15/17 Metoprolol Succinate 25 mg PO DAILY 02/15/17 Tamsulosin HCl [Flomax] 0.4 mg PO DAILY 05/15/19 Physical Exam-Neuro Vital Signs: Vital Signs Temperature 97.8 F 03/18/20 12:00 Pulse Rate 52 L 03/18/20 12:00 Respiratory Rate 19 03/18/20 12:00 Blood Pressure 118/86 03/18/20 12:00 O2 Sat by Pulse Oximetry (%) 95 03/18/20 13:00 Labs: CBC, BMP 03/18/20 07:40 03/18/20 07:40 INR, PTT INR 1.14 (0.82-1.09) 03/17/20 21:24 Assessment/Plan cc worsening of confusion HPI 89 year old male hsitory of BPH, CD, [place], HTN, Demenita. He lives with his at home. Patient was brought t hospital for diarrhea and worsening of confusion. Patient has no seizure, and no complaining of headache. He has been afebrile and normal wbc. He did have high bun nad creatining,and suspected diverticulitis. He takes ativan to sleep. Patient has been less responsive last few days. Allergies: NKDA Surgical history: Cholecystectomy, cardiac stents ER course was notable for: (1) Serum Cr 1.6 (baseline from prior admits appears to be about 1.2) (2) Head CT: no acute intracranial process (3) CTAP: Possible mild diverticulitis, no other acute intra-abdominal pathology Recent Travel: None Smoking: Quit 43 years ago Alcohol: Occasional Drugs: Denies Allergies No Known Allergies Allergy (Verified 03/17/20 21:42) HOME MEDICATIONS: Home Medications Medication Instructions Recorded Lisinopril [Prinivil -] 2.5 mg PO DAILY #0 tablet 02/15/17 Metoprolol Succinate 25 mg PO DAILY 02/15/17 Tamsulosin HCl [Flomax] 0.4 mg PO DAILY 05/15/19 ROS,FH,SH reviewed in chart NEUROLOGICAL EXAMINATION delirious , moving all ext, afebrile vss pupils reacive, corneal reflex is positive no face asymmetry on painful stimuli moving all ext ct head is wnl Assessment/Plan 89 year old male hsitory of BPH, CD, [place], HTN, Demenita presented with diarrhea and worsening of mental status , secondary to metabolic encephalopathy( dehydration, infection, hospitalization and dementia) clinically unlikley to be stroke, meningitis or status epilpeticus Plan - Abx as per ID - No need for mri or eeg - continue supportive care - may obtain b12,folate tsh with next blood drawan will continue to follow Thanking you so much Wm Turk MD
[2020-03-19 08:06] LABS: CALCIUM 8.3 mg/dl (8.5-10); CREATININE 1.4 mg/dl (0.55-1.3); MAGNESIUM 1.8 mg/dL (1.8-2.4); POTASSIUM 3.5 mmol/L (3.5-5.1)
[2020-03-19 08:09] LABS: BASO % 0.2 % (0-2.0); EOS % 0.9 % (0-4.5); HEMOGLOBIN 13.4 GM/dl (11.7-16.9); LYMPH % 8.9 % (8-40); MCH 28.9 pg (25.7-33.7); MCHC 33.6 g/dl (32.0-35.9); MEAN CELL VOLUME 85.9 fl (80-96); MEAN PLT VOLUME 8.3 fl (7.5-11.1); MONO % 6.4 % (3.8-10.2); NEUT % 83.6 % (42.8-82.8); PLATELET COUNT 258 K/MM3 (134-434); RBC 4.65 M/mm3 (4.00-5.60); RDW 14.9 % (11.9-15.9); WHITE BLOOD COUNT 8.4 K/mm3 (4.0-10.8)
[2020-03-19] MEDS ORDERED: DEXTROSE 5%-WATER - 50 ML IVPB ONE (09:00)
[2020-03-19] MEDS ORDERED: cefTRIAXone SODIUM 1 GM VIAL ONE (09:00)
[2020-03-19] MEDS: HEPARIN NA (PORCINE) 5,000 UNITS/ML 1ML VIAL SQ SCH ×2 (09:07→21:11)
[2020-03-19] MEDS: CEFTRIAXONE 1 GM in DEXTROSE 5%-WATER - 50 ML IVPB SCH (09:07)
--- NOTE | 2020-03-19 10:05 | PN ---
Physical Exam: SUBJECTIVE: Patient seen and examined. Agitated, attempting to climb out of bed, requiring Ativan/1:1 observation. OBJECTIVE: Vital Signs Period Temp Pulse Resp BP Sys/Yun Pulse Ox Last 24 Hr 97.8 F-98.7 F 52-104 17-20 113-142/50-87 93-98 GENERAL: The patient is awake, oriented x 0 (baseline), in no acute distress. HEAD: Normal with no signs of trauma. EYES: PERRL, extraocular movements intact, sclera anicteric, conjunctivae red R>L). No ptosis. ENT: Ears normal, nares patent, oropharynx clear without exudates, moist mucous membranes. NECK: Trachea midline, full range of motion, supple. LUNGS: Breath sounds equal, clear to auscultation bilaterally, no wheezes, no crackles, no accessory muscle use. HEART: Regular rate and rhythm, S1, S2 without murmur, rub or gallop. ABDOMEN: Soft, nontender, nondistended, normoactive bowel sounds. Grimaces when abdomen palpated. EXTREMITIES: 2+ pulses, warm, well-perfused, no edema. NEUROLOGICAL: Cranial nerves II through XII grossly intact. Normal speech, gait not observed. PSYCH: Normal mood, normal affect. SKIN: Warm, dry, normal turgor, R tibial skin tear. Laboratory Results - last 24 hr 03/18/20 03/18/20 03/19/20 07:04 13:47 07:28 WBC 8.4 RBC 4.65 Hgb 13.4 Hct 40.0 MCV 85.9 MCH 28.9 MCHC 33.6 RDW 14.9 Plt Count 258 MPV 8.3 Absolute Neuts (auto) 7.1 Neutrophils % 83.6 H Lymphocytes % 8.9 D Monocytes % 6.4 Eosinophils % 0.9 Basophils % 0.2 Sodium Potassium Chloride Carbon Dioxide Anion Gap BUN Creatinine Est GFR (CKD-EPI)AfAm Est GFR (CKD-EPI)NonAf Random Glucose Lactic Acid 1.7 Calcium Magnesium Vitamin B12 414 Serum Folate 5 03/19/20 07:28 WBC RBC Hgb Hct MCV MCH MCHC RDW Plt Count MPV Absolute Neuts (auto) Neutrophils % Lymphocytes % Monocytes % Eosinophils % Basophils % Sodium 140 Potassium 3.5 Chloride 114 H Carbon Dioxide 18 L Anion Gap 8 BUN 16.0 Creatinine 1.4 H Est GFR (CKD-EPI)AfAm 51.62 Est GFR (CKD-EPI)NonAf 44.54 Random Glucose 82 Lactic Acid Calcium 8.3 L Magnesium 1.8 Vitamin B12 Serum Folate Active Medications Generic Name Dose Route Start Last Admin Trade Name Keeley PRN Reason Stop Dose Admin Heparin Sodium (Porcine) 5,000 unit 03/18/20 10:00 03/19/20 09:07 Heparin - SQ 5,000 unit BID [place] Administration Metronidazole 500 mg in 100 mls @ 100 mls/hr 03/18/20 12:45 03/19/20 09:07 Flagyl 500mg Premixed Ivpb - IVPB 100 mls/hr Q8H-IV [place] Administration Sodium Chloride 1,000 mls @ 83 mls/hr 03/18/20 12:45 03/18/20 13:04 Normal Saline - IV 83 mls/hr ASDIR [place] Administration Ceftriaxone Sodium 1 gm/ 50 mls @ 200 mls/hr 03/18/20 14:00 03/19/20 09:07 Dextrose IVPB 200 mls/hr DAILY [place] Administration Protocol Olanzapine 2.5 mg 03/19/20 22:00 Zyprexa - PO HS [place] ASSESSMENT/PLAN: 89-year-old male with advanced dementia admitted with AMS and diarrhea. (1) Diarrhea Assessment/Plan: -CTAP with possible mild diverticulitis - cont ceftriaxone and Flagyl (03/19 - ) -Stool cultures and c diff neg -Gentle hydration -Clear liquid diet - need to encourage PO intake (2) Altered mental status Assessment/Plan: -Possibly related to infection/metabolic encephalopathy -HCT: no acute process -Blood and urine cultures ngtd -Close re-evaluation of airway/safety -Neuro consult pending -Discussed with daughter/patient is normally A&O x 0 and minimally conversant at baseline - it can be normal for him to "sleep all day" -Limit benzos as complicate neuro assessment -Will trial Zyprexa 2.5mg hs -1:1 observation for safety -Dietary consult for poor PO intake (3) Acute kidney injury Assessment/Plan: -Possibly secondary to hypovolemia/dehydration -Avoid nephrotoxins -Dose meds for CrCl 39 -NS 75 mLs/hr (4) Dementia -With agitation (5) CAD (coronary artery disease) Assessment/Plan: -No active issues (6) DVT prophylaxis Assessment/Plan: -Sqh DNR DISPO: Requires inpatient services. Daughter expressed some interest in dc to SNF ([facility] only) - SW aware and working with family to support their decision- making. Problem List - Problems (1) Diarrhea Code(s): R19.7 - DIARRHEA, UNSPECIFIED (2) Altered mental status Code(s): R41.82 - ALTERED MENTAL STATUS, UNSPECIFIED (3) Acute kidney injury Code(s): N17.9 - ACUTE KIDNEY FAILURE, UNSPECIFIED (4) Dementia Code(s): F03.90 - UNSPECIFIED DEMENTIA WITHOUT BEHAVIORAL DISTURBANCE Qualifiers: Dementia type: Alzheimer's disease Alzheimer's disease onset: unspecified onset Dementia behavioral disturbance: without behavioral disturbance Qualified Code(s): G30.9 - Alzheimer's disease, unspecified; F02.80 - Dementia in other diseases classified elsewhere without behavioral disturbance (5) CAD (coronary artery disease) Code(s): I25.10 - ATHSCL HEART DISEASE OF [place] CORONARY ARTERY W/O ANG PCTRS (6) DVT prophylaxis Code(s): Z29.9 - ENCOUNTER FOR PROPHYLACTIC MEASURES, UNSPECIFIED Visit type - Emergency Visit Emergency Visit: Yes ED Registration Date: 03/18/20 Care time: The patient presented to the Emergency Department on the above date and was hospitalized for further evaluation of their emergent condition. - New Patient This patient is new to me today: No - Critical Care Critical Care patient: No - Discharge Referral Referred to [facility] Med P.C[facility] No - Medication Review Med list reviewed for High Risk Meds patients 65 and older: Yes
[2020-03-19] MEDS ORDERED: LORazepam 2 MG/ML SDV VIAL IVPUSH ONE (11:35)
[2020-03-19] MEDS: SODIUM CHLORIDE 1,000 ML IV SCH (14:24)
[2020-03-19] MEDS ORDERED: OLANZapine 2.5 MG TABLET PO SCH (22:00)
[2020-03-19] MEDS ORDERED: ACETAMINOPHEN 1000 MG/100 ML VIAL (NON FORMULARY) IVPB PRN (22:43)
[2020-03-20 08:15] LABS: BASO % 0.4 % (0-2.0); EOS % 1.5 % (0-4.5); HEMATOCRIT 41.5 % (35.4-49); HEMOGLOBIN 13.3 GM/dl (11.7-16.9); LYMPH % 11.5 % (8-40); MCH 27.7 pg (25.7-33.7); MCHC 32.1 g/dl (32.0-35.9); MEAN CELL VOLUME 86.1 fl (80-96); MONO % 8.5 % (3.8-10.2); NEUT % 78.1 % (42.8-82.8); PLATELET COUNT 236 K/MM3 (134-434); RBC 4.81 M/mm3 (4.00-5.60); RDW 14.8 % (11.9-15.9); WHITE BLOOD COUNT 8.5 K/mm3 (4.0-10.8)
[2020-03-20 08:20] LABS: CALCIUM 7.9 mg/dl (8.5-10); CREATININE 1.3 mg/dl (0.55-1.3); MAGNESIUM 1.7 mg/dL (1.8-2.4); POTASSIUM 3.3 mmol/L (3.5-5.1)
[2020-03-20] MEDS ORDERED: POTASSIUM CHLORIDE TABS 20 MEQ TABLET.ER (FP) PO ONE (09:00)
[2020-03-20] MEDS ORDERED: MAGNESIUM OXIDE 400 MG TABLET (FP) PO ONE (09:00)
[2020-03-20] MEDS ORDERED: DEXTROSE 5%-WATER - 50 ML IVPB ONE (09:08)
[2020-03-20] MEDS ORDERED: cefTRIAXone SODIUM 1 GM VIAL ONE (09:08)
[2020-03-20] MEDS: HEPARIN NA (PORCINE) 5,000 UNITS/ML 1ML VIAL SQ SCH ×2 (09:25→21:31)
[2020-03-20] MEDS: CEFTRIAXONE 1 GM in DEXTROSE 5%-WATER - 50 ML IVPB SCH (09:25)
[2020-03-20] MEDS: MULTIVITAMINS (DAILY MVI) TABLET (FP) PO SCH (09:26)
--- NOTE | 2020-03-20 11:04 | PN ---
Progress Note (short form) - Note Progress Note: Patient on IV antibiotics with improving WBC and remains afebrile. Remains confused but is able to take some PO with assistance Cultures negative to date. VSS Afebrile Abdomen soft +BS nontender ?resolving diverticulitis? (vs other infection) Continue current plan with discharge per Medicine (consider switching to PO antibioitcs ie Cipro.Flagyl)
--- NOTE | 2020-03-20 11:04 | CON.ID ---
Consult Consult Specialty:: infectious diseases Referred by:: Kayla Reason for Consultation:: dirrhoea,lethargy - History of Present Illness Chief Complaint: lethargy,dirrhoea History of Present Illness: 89-year-old male with a history of BPH, CAD s/p stents, [place] (2013), HTN, and Alzheimer's dementia who presented to the ED via EMS from home yesterday with with diarrhea and lethargy. History was obtained from the family ( and daughter) at that time, as the patient is unable to participate. He has reportedly been having nonbloody, brownish, foul-smelling diarrhea increased lethargy and decreased responsiveness. The family reported the patient has dementia at baseline, however, the past few days hes been more lethargic, unresponsive, and not like himself. The family also reported increased leg swelling in the past few days. The daughter reports the patient is urinating fine and tolerating PO without nausea or vomiting. history obtained from the charts - History Source History Provided By: Medical Record Limitations to Obtaining History: Clinical Condition - Past Medical History Cardio/Vascular: Yes: HTN Renal/: Yes: BPH - Past Surgical History Past Surgical History: Yes: Cholecystectomy - Alcohol/Substance Use Hx Alcohol Use: No - Smoking History Smoking history: Former smoker Have you smoked in the past 12 months: No If you are a former smoker, when did you quit?: 40 YEARS Home Medications - Allergies Allergies/Adverse Reactions: Allergies Allergy/AdvReac Type Severity Reaction Status Date / Time No Known Allergies Allergy Verified 03/17/20 21:42 - Home Medications Home Medications: Ambulatory Orders Lisinopril [Prinivil -] 2.5 mg PO DAILY #0 tablet 02/15/17 Metoprolol Succinate 25 mg PO DAILY 02/15/17 Tamsulosin HCl [Flomax] 0.4 mg PO DAILY 05/15/19 Review of Systems Unable to obtain ROS, reason: unable to obtain Physical Exam Vital Signs: Vital Signs Temperature 98.9 F 03/20/20 07:45 Pulse Rate 67 03/20/20 07:45 Respiratory Rate 17 03/20/20 07:45 Blood Pressure 137/72 03/20/20 07:45 O2 Sat by Pulse Oximetry (%) 97 03/20/20 07:45 Constitutional: Yes: Other (non verbal) Eyes: Yes: Conjunctiva Clear Cardiovascular: Yes: Regular Rate and Rhythm Respiratory: Yes: Regular, CTA Bilaterally Gastrointestinal: Yes: Normal Bowel Sounds, Soft Musculoskeletal: Yes: WNL Extremities: Yes: WNL Neurological: Yes: Lethargy, Other Labs: CBC, BMP 03/20/20 07:05 03/20/20 07:05 Imaging - Results Chest X-ray: Report Reviewed, Image Reviewed Cat Scan: Report Reviewed, Image Reviewed Assessment/Plan ASSESSMENT/PLAN: 89-year-old male with advanced dementia admitted with AMS and diarrhea. (1) Diarrhea (2) Altered mental status (3) Acute kidney injury (4) Dementia (5) CAD (coronary artery disease) plan will start patient on ceftriaxone await for all results baseline status at home close watch nutrition asp precautions
--- NOTE | 2020-03-20 11:07 | PN ---
Progress Note, Physician History of Present Illness: continues to be confused - Current Medication List Current Medications: Active Medications Acetaminophen (Ofirmev Injection -) 1,000 mg IVPB Q6H PRN PRN Reason: FEVER Stop: 03/20/20 22:43 Last Admin: 03/19/20 23:21 Dose: 1,000 mg Documented by: Heparin Sodium (Porcine) (Heparin -) 5,000 unit SQ BID [place] Last Admin: 03/20/20 09:25 Dose: 5,000 unit Documented by: Metronidazole (Flagyl 500mg Premixed Ivpb -) 500 mg in 100 mls @ 100 mls/hr IVPB Q8H-IV [place] Last Admin: 03/20/20 09:25 Dose: 100 mls/hr Documented by: Sodium Chloride (Normal Saline -) 1,000 mls @ 83 mls/hr IV ASDIR [place] Last Admin: 03/19/20 14:24 Dose: 83 mls/hr Documented by: Ceftriaxone Sodium 1 gm/ (Dextrose) 50 mls @ 200 mls/hr IVPB DAILY [place]; Protocol Last Admin: 03/20/20 09:25 Dose: 200 mls/hr Documented by: Multivitamins/Minerals/Vitamin C (Tab-A-Vit -) 1 tab PO DAILY [place] Last Admin: 03/20/20 09:26 Dose: 1 tab Documented by: Olanzapine (Zyprexa -) 2.5 mg PO HS [facility] Last Admin: 03/19/20 21:13 Dose: 2.5 mg Documented by: - Objective Vital Signs: Vital Signs Temperature 98.9 F 03/20/20 07:45 Pulse Rate 67 03/20/20 07:45 Respiratory Rate 17 03/20/20 07:45 Blood Pressure 137/72 03/20/20 07:45 O2 Sat by Pulse Oximetry (%) 97 03/20/20 07:45 Constitutional: Yes: Other Cardiovascular: Yes: S1, S2 Respiratory: Yes: Regular, CTA Bilaterally Gastrointestinal: Yes: Normal Bowel Sounds, Soft, Other (dirrhoea) Musculoskeletal: Yes: Other Extremities: Yes: WNL Neurological: Yes: Lethargy, Other Psychiatric: Yes: Other Labs: CBC, BMP 03/20/20 07:05 03/20/20 07:05 INR, PTT INR 1.14 (0.82-1.09) 03/17/20 21:24 Assessment/Plan ASSESSMENT/PLAN: 89-year-old male with advanced dementia admitted with AMS and diarrhea. (1) Diarrhea (2) Altered mental status (3) Acute kidney injury (4) Dementia (5) CAD (coronary artery disease) plan continue abx await fo finalization of the cx reports
--- NOTE | 2020-03-20 11:11 | PN ---
Progress Note, Physician History of Present Illness: lethargic,confused anxious agitated - Current Medication List Current Medications: Active Medications Acetaminophen (Ofirmev Injection -) 1,000 mg IVPB Q6H PRN PRN Reason: FEVER Stop: 03/20/20 22:43 Last Admin: 03/19/20 23:21 Dose: 1,000 mg Documented by: Heparin Sodium (Porcine) (Heparin -) 5,000 unit SQ BID ISRAEL Last Admin: 03/20/20 09:25 Dose: 5,000 unit Documented by: Metronidazole (Flagyl 500mg Premixed Ivpb -) 500 mg in 100 mls @ 100 mls/hr IVPB Q8H-IV IS[place]EL Last Admin: 03/20/20 09:25 Dose: 100 mls/hr Documented by: Sodium Chloride (Normal Saline -) 1,000 mls @ 83 mls/hr IV ASDIR [place] Last Admin: 03/19/20 14:24 Dose: 83 mls/hr Documented by: Ceftriaxone Sodium 1 gm/ (Dextrose) 50 mls @ 200 mls/hr IVPB DAILY ISRAEL; Prot ocol Last Admin: 03/20/20 09:25 Dose: 200 mls/hr Documented by: Multivitamins/Minerals/Vitamin C (Tab-A-Vit -) 1 tab PO DAILY IS[place]EL Last Admin: 03/20/20 09:26 Dose: 1 tab Documented by: Olanzapine (Zyprexa -) 2.5 mg PO HS IS[place] Last Admin: 03/19/20 21:13 Dose: 2.5 mg Documented by: - Objective Vital Signs: Vital Signs Temperature 98.9 F 03/20/20 07:45 Pulse Rate 67 03/20/20 07:45 Respiratory Rate 17 03/20/20 07:45 Blood Pressure 137/72 03/20/20 07:45 O2 Sat by Pulse Oximetry (%) 97 03/20/20 07:45 Constitutional: Yes: Other Cardiovascular: Yes: S1, S2 Respiratory: Yes: Regular, CTA Bilaterally Gastrointestinal: Yes: Normal Bowel Sounds, Soft Musculoskeletal: Yes: WNL Extremities: Yes: WNL Neurological: Yes: Lethargy, Other (agaitated) Psychiatric: Yes: Other Labs: CBC, BMP 03/20/20 07:05 03/20/20 07:05 INR, PTT INR 1.14 (0.82-1.09) 03/17/20 21:24 Assessment/Plan ASSESSMENT/PLAN: 89-year-old male with advanced dementia admitted with AMS and diarrhea. (1) Diarrhea (2) Altered mental status (3) Acute kidney injury (4) Dementia (5) CAD (coronary artery disease) metabolic encephalopathy plan continue abx cx report noted rest as per the team
[2020-03-20] MEDS: SODIUM CHLORIDE 1,000 ML IV SCH (13:39)
[2020-03-20] MEDS ORDERED: LORazepam 2 MG/ML SDV VIAL IVPUSH ONE (14:16)
--- NOTE | 2020-03-20 17:30 | PN ---
Physical Exam: SUBJECTIVE: Patient seen and examined at bedside, still appears to be demented, WBC count however improving. VSS. OBJECTIVE: Vital Signs Period Temp Pulse Resp BP Sys/Yun Pulse Ox Last 24 Hr 98.2 F-100.6 F 67-99 17-18 113-143/62-84 94-97 GA AAOx0, non-communicative HEENT NC/AT, dry MM, neck supple CHest Coarse b/l BS CVS s1, s2+, RRR Abd Soft, NT, ND, BS+ Ext no LE edema, no calf tenderness, moves all 4 ext. Laboratory Results - last 24 hr 03/20/20 03/20/20 07:05 07:05 WBC 8.5 RBC 4.81 Hgb 13.3 Hct 41.5 MCV 86.1 MCH 27.7 MCHC 32.1 RDW 14.8 Plt Count 236 MPV 9.0 Absolute Neuts (auto) 6.7 Neutrophils % 78.1 Lymphocytes % 11.5 D Monocytes % 8.5 Eosinophils % 1.5 Basophils % 0.4 Sodium 140 Potassium 3.3 L Chloride 117 H Carbon Dioxide 14 L Anion Gap 9 BUN 15.0 Creatinine 1.3 Est GFR (CKD-EPI)AfAm 56.46 Est GFR (CKD-EPI)NonAf 48.72 Random Glucose 68 L Calcium 7.9 L Magnesium 1.7 L Active Medications Generic Name Dose Route Start Last Admin Trade Name Freq PRN Reason Stop Dose Admin Acetaminophen 1,000 mg 03/19/20 22:43 03/19/20 23:21 Ofirmev Injection - IVPB 03/20/20 22:43 1,000 mg Q6H PRN Administration FEVER Heparin Sodium (Porcine) 5,000 unit 03/18/20 10:00 03/20/20 09:25 Heparin - SQ 5,000 unit BID ISRAEL Administration Metronidazole 500 mg in 100 mls @ 100 mls/hr 03/18/20 12:45 03/20/20 09:25 Flagyl 500mg Premixed Ivpb - IVPB 100 mls/hr Q8H-IV IS[place] Administration Sodium Chloride 1,000 mls @ 83 mls/hr 03/18/20 12:45 03/20/20 13:39 Normal Saline - IV 83 mls/hr ASDIR [place] Administration Ceftriaxone Sodium 1 gm/ 50 mls @ 200 mls/hr 03/18/20 14:00 03/20/20 09:25 Dextrose IVPB 200 mls/hr DAILY [place] Administration Protocol Multivitamins/Minerals/Vitamin C 1 tab 03/20/20 10:00 03/20/20 09:26 Tab-A-Vit - PO 1 tab DAILY IS[place]EL Administration Olanzapine 5 mg 03/20/20 14:16 Zyprexa - PO HS IS[place] ASSESSMENT/PLAN: 89 M Diverticulitis Severe Alzheimer's disease Delirium HTN HLD Cad s/p stents BPH Plan: Patient needs complete assistance with ADL's and IADL's, highly recommending 24 hour care on discharge, v.s. SNF placement if family agrees Cont. abx w/ Ceftriaxone/Flagyl per ID recs Cont. anti-psychotic medications, obtain EKG for Qtc Psych evaluation Neurology following Id following DVT ppx: Heparin SC SW referral for 24 hour care vs SNF placement Visit type - Emergency Visit Emergency Visit: Yes ED Registration Date: 03/18/20 Care time: The patient presented to the Emergency Department on the above date and was hospitalized for further evaluation of their emergent condition. - New Patient This patient is new to me today: Yes Date on this admission: 03/20/20 - Critical Care Critical Care patient: No - Discharge Referral Referred to [facility] Med P.C[facility] No - Medication Review Med list reviewed for High Risk Meds patients 65 and older: Yes
--- NOTE | 2020-03-20 18:00 | CON.PSY ---
Psychiatry Consult Chief Complaint: 89 Maco old male wityh Dementia ASlz severe with severe behaviour disturbances seen for Psych eval.. Symptoms: reports: Memory Impairment, Inability to Control Temper, Aggressivity, Impulsivity, Disorganized/Disruptive Thoughts - Previous Psychiatric Treatment Outpatient: None Inpatient: None - Previous Substance Abuse Treatment Outpatient: None Inpatient: None - Current Medications Current Medications: Active Medications Acetaminophen (Ofirmev Injection -) 1,000 mg IVPB Q6H PRN PRN Reason: FEVER Stop: 03/20/20 22:43 Last Admin: 03/19/20 23:21 Dose: 1,000 mg Documented by: Heparin Sodium (Porcine) (Heparin -) 5,000 unit SQ BID IS[place] Last Admin: 03/20/20 09:25 Dose: 5,000 unit Documented by: Metronidazole (Flagyl 500mg Premixed Ivpb -) 500 mg in 100 mls @ 100 mls/hr IVPB Q8H-IV [place] Last Admin: 03/20/20 09:25 Dose: 100 mls/hr Documented by: Sodium Chloride (Normal Saline -) 1,000 mls @ 83 mls/hr IV ASDIR [place] Last Admin: 03/20/20 13:39 Dose: 83 mls/hr Documented by: Ceftriaxone Sodium 1 gm/ (Dextrose) 50 mls @ 200 mls/hr IVPB DAILY IS[place]; Protocol Last Admin: 03/20/20 09:25 Dose: 200 mls/hr Documented by: Multivitamins/Minerals/Vitamin C (Tab-A-Vit -) 1 tab PO DAILY [place] Last Admin: 03/20/20 09:26 Dose: 1 tab Documented by: Olanzapine (Zyprexa -) 5 mg PO HS [facility] - Allergies Allergies: Allergies Allergy/AdvReac Type Severity Reaction Status Date / Time No Known Allergies Allergy Verified 03/17/20 21:42 - Current Living Status Usual Living Arrangement: With Spouse - Current Mental Status Evaluation Appearance: Disheveled Attitude: Belligerent - Affect Affect: Constrictive Appropriateness: Not Appropriate - Mood Mood: Angry - Speech/Language Expressive: Delayed - Psychomotor Activity Psychomotor Activity: Agitated - Thought Process Thought Process: Circumstantial - Thought Content Hallucinations: Absent Delusions: Absent - Self Perception Self Perception: Depersonalization - Cognition Attention: Diminished Memory, Immediate Recall: Impaired Memory, Short Term: 0/3 Memory, Remote with Promptin/3 - Concentration Serial Sevens Intact: No Simple Calculations Intact: No - Abstraction Proverb Interpretation: Idiosyncratic Judgement: Severely Impaired - Insight Insight: Impaired - Impulse Control Impulse Control: Severly Impaired - Suicidal Ideation Suicidal Ideation: No - Homicidal Ideation Homicidal Ideation: No Assessment/Plan 1) Add Zyprexa 2.5 mg po am in addition to 5 mg po hs./
[2020-03-20] MEDS: OLANZapine 5 MG TABLET PO SCH (21:32)
[2020-03-21] MEDS: OLANZapine 2.5 MG TABLET PO SCH (06:56)
[2020-03-21 08:09] LABS: BASO % 1.4 % (0-2.0); EOS % 1.8 % (0-4.5); HEMATOCRIT 42.1 % (35.4-49); HEMOGLOBIN 14.2 GM/dl (11.7-16.9); LYMPH % 12.7 % (8-40); MCH 28.9 pg (25.7-33.7); MCHC 33.7 g/dl (32.0-35.9); MEAN CELL VOLUME 85.7 fl (80-96); MONO % 8.9 % (3.8-10.2); NEUT % 75.2 % (42.8-82.8); PLATELET COUNT 247 K/MM3 (134-434); RBC 4.91 M/mm3 (4.00-5.60); RDW 14.8 % (11.9-15.9); WHITE BLOOD COUNT 7.4 K/mm3 (4.0-10.8)
[2020-03-21 08:10] LABS: ALBUMIN 2.8 g/dl (3.4-5.0); BILIRUBIN,TOTAL 1.2 mg/dl (0.2-1); CALCIUM 8.3 mg/dl (8.5-10); CREATININE 1.3 mg/dl (0.55-1.3); POTASSIUM 3.4 mmol/L (3.5-5.1); TOT PROT 5.8 g/dl (6.4-8.2)
[2020-03-21] MEDS ORDERED: cefTRIAXone SODIUM 1 GM VIAL ONE (09:56)
[2020-03-21] MEDS ORDERED: DEXTROSE 5%-WATER - 50 ML IVPB ONE (09:56)
[2020-03-21] MEDS: MULTIVITAMINS (DAILY MVI) TABLET (FP) PO SCH (10:05)
[2020-03-21] MEDS: CEFTRIAXONE 1 GM in DEXTROSE 5%-WATER - 50 ML IVPB SCH (10:05)
[2020-03-21] MEDS: HEPARIN NA (PORCINE) 5,000 UNITS/ML 1ML VIAL SQ SCH ×2 (10:05→21:30)
[2020-03-21] MEDS ORDERED: POTASSIUM CHLORIDE ORAL LIQUID 20 MEQ/15 ML PO ONE (11:30)
[2020-03-21 11:49] LABS: MAGNESIUM 1.8 mg/dL (1.8-2.4); PHOSPHOROUS 3.1 mg/dl (2.5-4.9)
[2020-03-21] MEDS: SODIUM CHLORIDE 1,000 ML IV SCH (11:59)
[2020-03-21] MEDS ORDERED: MAGNESIUM SULF 50% (8.12 MEQ/2 ML-1 GM VIAL) IVPB ONE (12:17)
[2020-03-21] MEDS ORDERED: MAGNESIUM 1GM/D5W - 1 GM/100 ML IVPB IVPB ONE (12:30)
--- NOTE | 2020-03-21 13:17 | PN ---
Progress Note (short form) - Note Progress Note: 89 year old male hsitory of BPH, CD, UT, HTN, Demenita. He lives with his at home. Patient was brought t hospital for diarrhea and worsening of confusion. Patient has no seizure, and no complaining of headache. He has been afebrile and normal wbc. He did have high bun nad creatining,and suspected diverticulitis. He takes ativan to sleep. Patient has been less responsive last few days. - pateint was agitated and was started on zyprexa and is calmer, going to dis charged today NEUROLOGICAL EXAMINATION delirious , moving all ext, afebrile vss pupils reacive, corneal reflex is positive no face asymmetry on painful stimuli moving all ext ct head is wnl Assessment/Plan 89 year old male hsitory of BPH, CD, UT, HTN, Demenita presented with diarrhea and worsening of mental status , secondary to metabolic encephalopathy( dehydration, infection, hospitalization and dementia) clinically unlikley to be stroke, meningitis or status epilpeticus Plan - continue zyprexa - continue supportive care - follow up outpatient Thanking you so much Wm Turk MD
--- NOTE | 2020-03-21 13:25 | DS ---
Physical Exam: SUBJECTIVE: Patient seen and examined OBJECTIVE: Vital Signs Period Temp Pulse Resp BP Sys/Yun Pulse Ox Last 24 Hr 97.2 F-98.2 F 69-110 17-20 107-137/54-92 93-97 PHYSICAL EXAM GENERAL: The patient is awake, not oriented, in no acute distress. HEAD: Normal with no signs of trauma ORAL: dry mucous membranes. EYES: PERRL, + lid lag R> L NECK: Trachea deviated LUNGS: + mouth breathing, coarse BS, no crackles/rales/wheezing, no accessory muscle use. HEART: Rapid rate and rhythm, S1, S2 without murmur, rub or gallop. ABDOMEN: Soft, nontender, nondistended, hypoactive bowel sounds, no guarding, no rebound, no hepatosplenomegaly, no masses. EXTREMITIES: 2+ pulses, warm, well-perfused, no edema. NEUROLOGICAL: non verbal, moves all extremities, confused, not easily directed. : adult diaper PSYCH: restless SKIN: frail thin skin, hyperpigmentation to upper extremities. Warm, dry. Dressing to RLE, right upper arm and left forearm LABS Laboratory Results - last 24 hr 03/21/20 03/21/20 03/21/20 07:01 07:01 07:01 WBC 7.4 RBC 4.91 Hgb 14.2 Hct 42.1 MCV 85.7 MCH 28.9 MCHC 33.7 RDW 14.8 Plt Count 247 MPV 9.0 Absolute Neuts (auto) 5.6 Neutrophils % 75.2 Lymphocytes % 12.7 Monocytes % 8.9 Eosinophils % 1.8 Basophils % 1.4 D Sodium 142 Potassium 3.4 L Chloride 113 H Carbon Dioxide 15 L Anion Gap 14 BUN 13.0 Creatinine 1.3 Est GFR (CKD-EPI)AfAm 56.46 Est GFR (CKD-EPI)NonAf 48.72 Random Glucose 78 Calcium 8.3 L Phosphorus 3.1 Magnesium 1.8 Total Bilirubin 1.2 H AST 43 H ALT 27 Alkaline Phosphatase 69 D Total Protein 5.8 L Albumin 2.8 L Total Amylase 54 Lipase 63 L Laboratory Tests 03/17/20 03/17/20 03/17/20 21:24 21:24 21:24 WBC RBC Hgb Hct MCV MCH MCHC RDW Plt Count MPV Absolute Neuts (auto) Neutrophils % Lymphocytes % Monocytes % Eosinophils % Basophils % PT with INR 12.7 INR 1.14 PTT (Actin FS) 29.6 Sodium Potassium Chloride Carbon Dioxide Anion Gap BUN Creatinine Est GFR (CKD-EPI)AfAm Est GFR (CKD-EPI)NonAf Random Glucose Lactic Acid Calcium Phosphorus Magnesium Total Bilirubin AST ALT Alkaline Phosphatase Troponin I < 0.03 Total Protein Albumin Total Amylase Lipase Vitamin B12 Serum Folate TSH Urine Color Yellow Urine Appearance Clear Urine pH 5.0 Urine Protein Negative Urine Glucose (UA) Negative Urine Ketones Trace Urine Blood Trace-intact Urine Nitrite Negative Urine Bilirubin 1+ H Urine Urobilinogen 0.2 Ur Leukocyte Esterase Negative Urine RBC 5-10 Urine WBC 2-5 Ur Transition Epith Cell Rare Urine Bacteria Rare COVID-19 (DANITZA) 03/17/20 03/17/20 03/17/20 21:34 21:55 22:08 WBC 13.1 H RBC 4.88 Hgb 14.1 Hct 42.4 MCV 86.9 MCH 28.8 D MCHC 33.2 RDW 15.0 D Plt Count 273 D MPV 9.2 Absolute Neuts (auto) 11.0 Neutrophils % 83.9 H Lymphocytes % 9.4 D Monocytes % 4.3 Eosinophils % 0.7 Basophils % 1.7 PT with INR INR PTT (Actin FS) Sodium 136 Potassium 4.4 Chloride 103 Carbon Dioxide 21 Anion Gap 12 BUN 29.0 H Creatinine 1.6 H Est GFR (CKD-EPI)AfAm 43.93 Est GFR (CKD-EPI)NonAf 37.90 Random Glucose 105 Lactic Acid Calcium 8.9 Phosphorus Magnesium Total Bilirubin 0.7 AST 21 ALT 18 Alkaline Phosphatase 85 Troponin I Total Protein 7.0 Albumin 3.6 Total Amylase Lipase 67 L Vitamin B12 Serum Folate TSH Urine Color Urine Appearance Urine pH Urine Protein Urine Glucose (UA) Urine Ketones Urine Blood Urine Nitrite Urine Bilirubin Urine Urobilinogen Ur Leukocyte Esterase Urine RBC Urine WBC Ur Transition Epith Cell Urine Bacteria COVID-19 (DANITZA) Not detected 03/18/20 03/18/20 03/18/20 07:04 07:40 07:40 WBC 7.7 RBC 4.50 Hgb 12.6 Hct 38.5 MCV 85.6 MCH 28.1 MCHC 32.9 RDW 14.9 Plt Count 230 MPV 8.8 Absolute Neuts (auto) 5.5 Neutrophils % 72.4 Lymphocytes % 16.5 D Monocytes % 9.3 D Eosinophils % 1.0 Basophils % 0.8 PT with INR INR PTT (Actin FS) Sodium 137 Potassium 3.5 Chloride 108 H Carbon Dioxide 20 L Anion Gap 9 BUN 25.0 H Creatinine 1.4 H Est GFR (CKD-EPI)AfAm 51.62 Est GFR (CKD-EPI)NonAf 44.54 Random Glucose 95 Lactic Acid Calcium 8.3 L Phosphorus Magnesium Total Bilirubin 0.6 AST 20 ALT 15 Alkaline Phosphatase 80 Troponin I Total Protein 6.2 L Albumin 3.0 L Total Amylase Lipase Vitamin B12 414 Serum Folate 5 TSH Urine Color Urine Appearance Urine pH Urine Protein Urine Glucose (UA) Urine Ketones Urine Blood Urine Nitrite Urine Bilirubin Urine Urobilinogen Ur Leukocyte Esterase Urine RBC Urine WBC Ur Transition Epith Cell Urine Bacteria COVID-19 (DANITZA) 03/18/20 03/19/20 03/19/20 13:47 07:28 07:28 WBC 8.4 RBC 4.65 Hgb 13.4 Hct 40.0 MCV 85.9 MCH 28.9 MCHC 33.6 RDW 14.9 Plt Count 258 MPV 8.3 Absolute Neuts (auto) 7.1 Neutrophils % 83.6 H Lymphocytes % 8.9 D Monocytes % 6.4 Eosinophils % 0.9 Basophils % 0.2 PT with INR INR PTT (Actin FS) Sodium 140 Potassium 3.5 Chloride 114 H Carbon Dioxide 18 L Anion Gap 8 BUN 16.0 Creatinine 1.4 H Est GFR (CKD-EPI)AfAm 51.62 Est GFR (CKD-EPI)NonAf 44.54 Random Glucose 82 Lactic Acid 1.7 Calcium 8.3 L Phosphorus Magnesium 1.8 Total Bilirubin AST ALT Alkaline Phosphatase Troponin I Total Protein Albumin Total Amylase Lipase Vitamin B12 Serum Folate TSH 0.94 D Urine Color Urine Appearance Urine pH Urine Protein Urine Glucose (UA) Urine Ketones Urine Blood Urine Nitrite Urine Bilirubin Urine Urobilinogen Ur Leukocyte Esterase Urine RBC Urine WBC Ur Transition Epith Cell Urine Bacteria COVID-19 (DANITZA) not detected 03/20/20 03/20/20 03/21/20 07:05 07:05 07:01 WBC 8.5 7.4 RBC 4.81 4.91 Hgb 13.3 14.2 Hct 41.5 42.1 MCV 86.1 85.7 MCH 27.7 28.9 MCHC 32.1 33.7 RDW 14.8 14.8 Plt Count 236 247 MPV 9.0 9.0 Absolute Neuts (auto) 6.7 5.6 Neutrophils % 78.1 75.2 Lymphocytes % 11.5 D 12.7 Monocytes % 8.5 8.9 Eosinophils % 1.5 1.8 Basophils % 0.4 1.4 D PT with INR INR PTT (Actin FS) Sodium 140 Potassium 3.3 L Chloride 117 H Carbon Dioxide 14 L Anion Gap 9 BUN 15.0 Creatinine 1.3 Est GFR (CKD-EPI)AfAm 56.46 Est GFR (CKD-EPI)NonAf 48.72 Random Glucose 68 L Lactic Acid Calcium 7.9 L Phosphorus Magnesium 1.7 L Total Bilirubin AST ALT Alkaline Phosphatase Troponin I Total Protein Albumin Total Amylase Lipase Vitamin B12 Serum Folate TSH Urine Color Urine Appearance Urine pH Urine Protein Urine Glucose (UA) Urine Ketones Urine Blood Urine Nitrite Urine Bilirubin Urine Urobilinogen Ur Leukocyte Esterase Urine RBC Urine WBC Ur Transition Epith Cell Urine Bacteria COVID-19 (DANITZA) 03/21/20 03/21/20 07:01 07:01 WBC RBC Hgb Hct MCV MCH MCHC RDW Plt Count MPV Absolute Neuts (auto) Neutrophils % Lymphocytes % Monocytes % Eosinophils % Basophils % PT with INR INR PTT (Actin FS) Sodium 142 Potassium 3.4 L Chloride 113 H Carbon Dioxide 15 L Anion Gap 14 BUN 13.0 Creatinine 1.3 Est GFR (CKD-EPI)AfAm 56.46 Est GFR (CKD-EPI)NonAf 48.72 Random Glucose 78 Lactic Acid Calcium 8.3 L Phosphorus 3.1 Magnesium 1.8 Total Bilirubin 1.2 H AST 43 H ALT 27 Alkaline Phosphatase 69 D Troponin I Total Protein 5.8 L Albumin 2.8 L Total Amylase 54 Lipase 63 L Vitamin B12 Serum Folate TSH Urine Color Urine Appearance Urine pH Urine Protein Urine Glucose (UA) Urine Ketones Urine Blood Urine Nitrite Urine Bilirubin Urine Urobilinogen Ur Leukocyte Esterase Urine RBC Urine WBC Ur Transition Epith Cell Urine Bacteria COVID-19 (DANITZA) HOSPITAL COURSE: Date of Admission:03/18/20 Date of Discharge: 03/21/20 Minutes to complete discharge: 60 Discharge Summary Problems reviewed: Yes Reason For Visit: diarrhea/ lethargy Current Active Problems Acute kidney injury (Acute) Altered mental status (Acute) CAD (coronary artery disease) (Acute) DVT prophylaxis (Acute) Diarrhea (Acute) Diverticulitis (Acute) Procedures: Principal: Head CT without contrast 03/17/2020. Impression: Moderate atrophy. No gross evidence of a focal intracranial lesion or hemorrhage is seen. Note is made of a radiopaque/metallic foreign body in the right external auditory canal. Correlate. clinically. A preliminary report was forwarded by the [facility] service, [employer]. Reported By: Altaf Araiza MD 03/18/20 0849. . CXR 03/17/20. . 2 views of the chest were submitted. There is a large heart, tortuous sclerotic aorta, large hiatal hernia and tracheal deviation to the right on the prominent knob. There is no sign of infiltrate or failure. The angles are sharp. The bones and soft tissues are intact. Since 05/15/2019, there is a better inspiration and clearing of the increased lung markings at the bases. Correlation recommended. Reported By: Shantanu Guerrero MD 03/18/[address] abd and pelvis 03/17/2020. IMPRESSION: CT imaging completed with no free air or free fluid and no signs of bowel obstruction or hernia. Mild degree diverticulitis lower descending colon. Reported By: Wilfred John MD 03/18/20 1111. Other Procedures: CXR 03/21/2020. Impression: Large heart. Questionable retrocardiac atelectasis or infiltrate. Incomplete visualization right base due to hand artifact. Reported By: Shantanu Guerrero MD 03/21/20 1156. Hospital Course: 89-year-old male with a history of BPH, CAD s/p stents, NC (2013), HTN, and Alzheimer's dementia who presented to the ED via EMS from home yesterday with with diarrhea and lethargy. History was obtained from the family ( and daughter) at that time, as the patient is unable to participate. He has reportedly been having nonbloody, brownish, foul-smelling diarrhea increased lethargy and decreased responsiveness. The family reported the patient has dementia at baseline, however, the past few days hes been more lethargic, unresponsive, and not like himself. The family also reported increased leg swelling in the past few days. The daughter reports the patient is urinating fine and tolerating PO without nausea or vomiting. ER course was notable for: (1) Serum Cr 1.6 (baseline from prior admits appears to be about 1.2) (2) Head CT: no acute intracranial process (3) CTAP: Possible mild diverticulitis, no other acute intra-abdominal pathology On admission, Mr. Nails was rehydrated with IVF resulting in normalization of renal function. He was also started on antibiotics, however, his stool/blood and urine cultures were all negative, COVID screen also negative. Pt required complete care during hospital stay and was evaluated by psych due to restless and confusion in the setting of advanced alzheimers dementia. Zyprexa BID initiated. On 03/21, pt deemed stable for discharge, antiobiotics discontinued. Family opts to continue care at home and medical supplies ordered to assist family with caring for patient at home. Health Concerns: PATIENT EDUCATION Gastroenteritis is irritation and inflammation of the stomach and intestines. It is most frequently caused by viral or bacterial infection. Symptoms of gastroenteritis include nausea, vomiting, diarrhea, and abdominal pain. Usually, treatment is aimed at preventing dehydration. Certain bacterial causes are treated with antibiotics. Gastroenteritis typically lasts from a few days to a week or more, depending on the cause. Your stomach produces acids to break down food for digestion. Your stomach processes the food you eat into a liquid form. The processed liquid travels from your stomach to your small intestine. The liquid solidifies as it moves through the large intestine, forming a stool. The stool is eliminated from your body when you have a bowel movement Causes There are several causes of gastroenteritis. It is most frequently caused by viral or bacterial infection. Viruses are found in contaminated food and water. Poor hand washing most commonly transmits viruses. Bacterial causes include travelers diarrhea, food poisoning, handling undercooked meat or poultry, and handling reptiles with the bacteria. Parasites, chemical toxins, and food intolerance can cause gastroenteritis. Parasites are found in contaminated drinking water or swimming pools. Chemical toxins are most frequently contained in seafood, certain medications, and metals including lead, mercury, and arsenic. Food allergies or lactose intolerance, the inability to digest milk or cheese products, can also cause gastroenteritis. Symptoms Common symptoms of gastroenteritis include nausea, vomiting, diarrhea, a low fever, and cramping or abdominal pain. You should call your doctor if you feel weak, dizzy, or experience serious symptoms. More serious symptoms include a swollen or painful abdomen, fever higher than 101, vomiting that lasts for more than 48 hours, bloody bowel movements, and dehydration. Extreme thirst, dry mouth, little urine production, and a lack of tears are signs of dehydration. You should have someone take you to a hospital emergency room if you are sleepy or unaware of your surroundings Prevention You can prevent the transmission gastroenteritis with good hand washing. Hands should be washed thoroughly after going to the bathroom and before handling food. You should avoid contaminated food or water. Enzyme supplements are available to help digest foods with lactose. Additionally, there are many lactose-free products available on the market. https://[email or web address]/PatientEducation/tabid/75042/ctl/View/mid/730 66/Default?[email or web address] Plan of Treatment: Follow up with Dr. Lyle [address] [place] [address]. Appointment: Apr 03 2020 @ 2:30pm NEW MEDICATION Zyprexa has been sent to your pharmacy for peanut picker Ativan 0.5mg 3 day supply sent to pharmacy. Goals: Follow up with PCP within 1 weeks of discharge. Hospital bed ordered to facilitate ease of care and comfort while residing at home. Condition: Improved - Instructions Diet, Activity, Other Instructions: Mechanical soft diet Referrals: Pollo Lyle MD [Primary Care Provider] - Disposition: HOME - Home Medications Comprehensive Discharge Medication List: Ambulatory Orders Lisinopril [Prinivil -] 2.5 mg PO DAILY #0 tablet 02/15/17 Metoprolol Succinate 25 mg PO DAILY 02/15/17 Tamsulosin HCl [Flomax] 0.4 mg PO DAILY 05/15/19 Multivitamins [Multivit ([facility] Formulary)] 1 tab PO DAILY tab 03/21/20 Olanzapine [Zyprexa -] 2.5 mg PO AM 30 Days #30 tablet 03/21/20 Olanzapine [Zyprexa -] 5 mg PO HS 30 Days #30 tablet 03/21/20 Prescription Drug Monitoring Program (I-STOP) results: I-STOP not reviewed Problem List - Problems (1) Altered mental status Code(s): R41.82 - ALTERED MENTAL STATUS, UNSPECIFIED (2) Diarrhea Code(s): R19.7 - DIARRHEA, UNSPECIFIED (3) Dementia Code(s): F03.90 - UNSPECIFIED DEMENTIA WITHOUT BEHAVIORAL DISTURBANCE Qualifiers: Dementia type: Alzheimer's disease Alzheimer's disease onset: unspecified onset Dementia behavioral disturbance: without behavioral disturbance Qualified Code(s): G30.9 - Alzheimer's disease, unspecified; F02.80 - Dementia in other diseases classified elsewhere without behavioral disturbance (4) Weakness Code(s): R53.1 - WEAKNESS This patient is new to me today: Yes Date on this admission: 03/21/20 Emergency Visit: Yes ED Registration Date: 03/18/20 Care time: The patient presented to the Emergency Department on the above date and was hospitalized for further evaluation of their emergent condition. Critical Care patient: No - Discharge Referral Referred to [facility] Med P.C.: No
--- NOTE | 2020-03-21 15:29 | EKG ---
Test Reason : Blood Pressure : / mmHG Vent. Rate : 099 BPM Atrial Rate : 099 BPM P-R Int : 156 ms QRS Dur : 086 ms QT Int : 368 ms P-R-T Axes : 049 -09 043 degrees QTc Int : 472 ms SINUS RHYTHM WITH FREQUENT and consecutive PREMATURE VENTRICULAR COMPLEXES NONSPECIFIC ST AND T WAVE ABNORMALITY PROLONGED QT ABNORMAL ECG WHEN COMPARED WITH ECG OF 17-MAR-2020 20:58, NONSPECIFIC T WAVE ABNORMALITY, WORSE IN LATERAL LEADS Confirmed by ALEENA GRAJEDA MD ([id number]) on 03/21/2020 3:28:58 PM Referred By: Confirmed By:ALEENA GRAJEDA MD
[2020-03-21] MEDS ORDERED: ALBUTEROL SO4 2.5/IPRATROPIUM 0.5 INH SOL 3 ML VIAL.NEB. NEB ONE (19:27)
[2020-03-21] MEDS: OLANZapine 5 MG TABLET PO SCH (21:50)
[2020-03-21] MEDS ORDERED: ALBUTEROL SO4 0.083% IH SOL 2.5 MG/3 ML VIAL.NEB. NEB PRN (22:47)
--- NOTE | 2020-03-21 22:55 | HOSP ---
Subjective - Review of Symptoms Events since last encounter: Hospitalist Encounter Notified by Megan Max, evening nursing painting department supervisor at [place] that the patient was in respiratory distress- wheezing and very agitated. Patient was being transferred to EMS stretcher, EMS would not transport patient back to his residence in his current state. Was asked for nebulizer treatent and anti- anxiolytic medication. Arrived to bedside, patient is asleep but arousable, confused-at baseline. Patient examined see EMR Plan Duoneb x1 Pulmonary: Yes: Dyspnea Other Systems: Psych: Agitation Physical Examination Vital Signs: Vital Signs Temperature 98.6 F 03/21/20 22:00 Pulse Rate 84 03/21/20 22:00 Respiratory Rate 20 03/21/20 22:00 Blood Pressure 120/56 L 03/21/20 22:00 O2 Sat by Pulse Oximetry (%) 97 03/21/20 22:00 Eyes: Yes: Conjunctiva Clear, PERRL HENT: Yes: Atraumatic, Normocephalic Neck: Yes: Supple, Trachea Midline Cardiovascular: Yes: Regular Rate and Rhythm, S1 Respiratory: Yes: Wheezes Gastrointestinal: Yes: Normal Bowel Sounds, Soft Renal/: Yes: Incontinence Edema: No Peripheral Pulses WNL: Yes Neurological: Yes: Confusion Psychiatric: Yes: Other (confused) Labs: CBC, BMP 03/21/20 07:01 03/21/20 07:01 Hospitalist Encounter Assessment: This is an 89-year-old male with a history of BPH, CAD s/p stents, [place] (2013), HTN, and Alzheimer's dementia. Admitted for Diverticulitis, RASHEL. Outcome: Patient's Spo2 92% on RA Placed on 2L spo2- improved Recommendations/Interventions: Oxygen Therapy- 2LNC, Albuterol Nebulizer, Albuterol MDI for home
[2020-03-22] MEDS: OLANZapine 2.5 MG TABLET PO SCH (06:48)
[2020-03-22] MEDS: HEPARIN NA (PORCINE) 5,000 UNITS/ML 1ML VIAL SQ SCH ×2 (09:21→21:06)
[2020-03-22] MEDS: MULTIVITAMINS (DAILY MVI) TABLET (FP) PO SCH (09:21)
[2020-03-22] MEDS ORDERED: AZITHROMYCIN 250 MG TABLET PO ONE (10:45)
--- NOTE | 2020-03-22 10:45 | PN ---
Progress Note, Physician Chief Complaint: 24HR Events - remains with poor appetite - during transfer to [facility] for discharge home, pt became agitated and dyspneic. EMS declined transfer pt in his current state. He was treated with nebs, and oxygen. - pt no longer requiring 1:1 as he is calm and sleeping most of the day - This morning, spoke with daughter Molly at length and she is agreeable to home hospice as she recognizes the progressive nature of father's alzheimer's dementia and would prefer him to be comfortable at home. History of Present Illness: 89-year-old male with a history of BPH, CAD s/p stents, CT (2013), HTN, and Alzheimer's dementia who presented to the ED via EMS from home yesterday with with diarrhea and lethargy. History was obtained from the family ( and daughter) at that time, as the patient is unable to participate. He has reportedly been having nonbloody, brownish, foul-smelling diarrhea increased lethargy and decreased responsiveness. The family reported the patient has d ementia at baseline, however, the past few days hes been more lethargic, unresponsive, and not like himself. The family also reported increased leg swelling in the past few days. The daughter reports the patient is urinating fine and tolerating PO without nausea or vomiting. ER course was notable for: (1) Serum Cr 1.6 (baseline from prior admits appears to be about 1.2) (2) Head CT: no acute intracranial process (3) CTAP: Possible mild diverticulitis, no other acute intra-abdominal pathology On admission, Mr. Nails was rehydrated with IVF resulting in normalization of renal function. He was also started on antibiotics, however, his stool/blood and urine cultures were all negative, COVID screen also negative. Pt required complete care during hospital stay and was evaluated by psych due to restless and confusion in the setting of advanced alzheimers dementia. Zyprexa BID initiated. - Current Medication List Current Medications: Active Medications Albuterol Sulfate (Ventolin 0.083% Nebulizer Soln -) 1 amp NEB Q6H PRN PRN Reason: SHORT OF BREATH/WHEEZING Azithromycin (Zithromax -) 250 mg PO DAILY@1030 [place] Azithromycin (Zithromax -) 500 mg PO ONCE ONE Stop: 09/04/20 10:46 Heparin Sodium (Porcine) (Heparin -) 5,000 unit SQ BID [facility] Last Admin: 03/22/20 09:21 Dose: 5,000 unit Documented by: Sodium Chloride (Normal Saline -) 1,000 mls @ 83 mls/hr IV ASDIR [facility] Last Admin: 03/21/20 11:59 Dose: 83 mls/hr Documented by: Multivitamins/Minerals/Vitamin C (Tab-A-Vit -) 1 tab PO DAILY [facility] Last Admin: 03/22/20 09:21 Dose: 1 tab Documented by: Olanzapine (Zyprexa -) 5 mg PO HS [facility] Last Admin: 03/21/20 21:50 Dose: 5 mg Documented by: Olanzapine (Zyprexa -) 2.5 mg PO AM [facility] Last Admin: 03/22/20 06:48 Dose: 2.5 mg Documented by: - Objective Vital Signs: Vital Signs Temperature 98.4 F 03/22/20 06:00 Pulse Rate 74 03/22/20 06:00 Respiratory Rate 20 03/22/20 06:00 Blood Pressure 125/83 03/22/20 06:00 O2 Sat by Pulse Oximetry (%) 100 03/22/20 08:03 Constitutional: Yes: Calm, Thin Eyes: Yes: Ptosis HENT: Yes: Atraumatic, Normocephalic Neck: Yes: Supple Cardiovascular: Yes: Regular Rate and Rhythm Respiratory: Yes: CTA Bilaterally Gastrointestinal: Yes: Soft ...Rectal Exam: Yes: Deferred Musculoskeletal: Yes: Muscle Weakness Edema: No Peripheral Pulses WNL: Yes Peripheral Pulses: Left Radial: 2+, Right Radial: 2+ Integumentary: Yes: Erythema, Other (thin skin) Wound/Incision: Yes: Other (Dressing to RLE, right upper arm and left forearm) Neurological: Yes: Confusion, Unsteady Gait Labs: CBC, BMP 03/21/20 07:01 03/21/20 07:01 INR, PTT INR 1.14 (0.82-1.09) 03/17/20 21:24 - ....Imaging Chest X-ray: Report Reviewed (CXR 03/21/2020 Impression: Large heart. Questionable retrocardiac atelectasis or infiltrate. Incomplete visualization right base due to hand artifact. Reported By: Shantanu Guerrero MD 03/21/20 1156) X-ray: Report Reviewed (CXR 03/22/2020) Problem List - Problems (1) Diarrhea Assessment/Plan: diarrhea resolved ceftriaxone and flagyl completed trend WBC and temp curve Code(s): R19.7 - DIARRHEA, UNSPECIFIED (2) Weakness Assessment/Plan: fall precautions bed alarm Code(s): R53.1 - WEAKNESS (3) Dyspnea Assessment/Plan: PRN nebs Supplemental Oxygen repeat CXR today improved since yesterday Chest PT BID OOB to chair with PT if pt able to tolerate Oral Azith x 5days Code(s): R06.00 - DYSPNEA, UNSPECIFIED (4) Alzheimer's dementia Assessment/Plan: continue Zyprexa pt has been intermittently dosed ativan for severe agitation Palliative care consult SW to set up home hospice. aspiration precautions - pt needs dysphagia and nutrition evaluation care plan discussed with Molly and her , both of whom are in agreement Code(s): G30.9 - ALZHEIMER'S DISEASE, UNSPECIFIED; F02.80 - DEMENTIA IN OTH DISEASES CLASSD ELSWHR W/O BEHAVRL DISTURB Impression/Plan Impression/Plan: Code status: DNR/DNI Dispo: patient can be discharged home over the weekend if hemodynamically and respiratory stable, with home hospice visit set up for next week. Visit type - Emergency Visit Emergency Visit: Yes ED Registration Date: 03/18/20 Care time: The patient presented to the Emergency Department on the above date and was hospitalized for further evaluation of their emergent condition. - New Patient This patient is new to me today: No - Critical Care Critical Care patient: No - Discharge Referral Referred to [facility] Med P.C.: No - Medication Review Med list reviewed for High Risk Meds patients 65 and older: Yes
--- NOTE | 2020-03-22 12:43 | CONSULT ---
Admitting History and Physical - Admission History of Present Illness: 89-year-old male with advanced dementia admitted on 03/18 with worsening mental status as well as diarrhea.- hsitory of BPH, CD, [place], HTN, Demenita presented with diarrhea and worsening of mental status , secondary to metabolic encephalopathy( dehydration, infection, hospitalization and dementia) per emr- remains with poor appetite - during transfer [facility] for [facility], pt became agitated and dyspneic. EMS declined transfer pt in his current state. He was treated with nebs, and oxygen. - pt no longer requiring 1:1 as he is calm and sleeping most of the day - This morning, spoke with daughter Molly at length and she is agreeable to home hospice as she recognizes the progressive nature of father's alzheimer's dementia and would prefer him to be comfortable at home. Selected Entries 03/20/20 03/20/20 03/21/20 20:26 23:00 06:00 Diet Tolerated Poor Poor Poor Lunch Supper 0 Temperature O2 Sat by Pulse Oximetry (%) Oxygen Delivery Method 03/21/20 03/21/20 03/21/20 10:05 18:00 22:46 Diet Tolerated Poor Poor Poor Lunch Supper 0 Temperature O2 Sat by Pulse Oximetry (%) Oxygen Delivery Method 03/21/20 03/22/20 03/22/20 22:56 01:51 06:00 Diet Tolerated Poor Lunch Supper 0 Temperature 98.4 F 98.4 F O2 Sat by Pulse 94 L 94 L Oximetry (%) Oxygen Delivery Method 03/22/20 03/22/20 08:03 13:02 Diet Tolerated Refused Lunch 0 Supper Temperature O2 Sat by Pulse 100 Oximetry (%) Oxygen Delivery Nasal Cannula Method Laboratory Tests 03/21/20 07:01 WBC 7.4 Laboratory Tests 03/17/20 22:08 COVID-19 (DANITZA) Not detected Pt was on clear liquids, placed on puree today This is my first consult on this pt History Source: Medical Record Limitations to Obtaining History: Clinical Condition, Dementia - Past Medical History Cardiovascular: Yes: HTN Renal/: Yes: BPH - Past Surgical History Past Surgical History: Yes: Cholecystectomy - Smoking History Smoking history: Former smoker Have you smoked in the past 12 months: No If you are a former smoker, when did you quit?: 40 YEARS - Alcohol/Substance Use Hx Alcohol Use: No History - Admission Reason For Visit: diarrhea/ lethargy - Diagnostics X-ray: Report Reviewed - General Mental Status: Awake and Alert (sleepy but arousable) Attention: Distractible, Moderate Impairment Ability to Follow Directions: Poor Head/Neck Control: Needs Assist - Hearing Hearing: Normal Hearing Aide: No With Patient: No Speech Evaluation - Communication Primary Language: SAMI Communication: Yes: Non-Communicable - Speech Characteristics Voice Phonatory-based Quality: Yes: Vocal Wetness - Language/Auditory Comprehension Observation: Able to respond to yes/no queries: No - Swallow Evaluation/Bedside Assessment Current Nutritional Intake: Dysphagia Pureed, Thin Liquids Oral Secretions: Yes: WFL, Dryness Dentition: Yes: Adequate Jaw Position: Open at Rest Against Resistance Opening: Weak Against Resistance Closing: Weak Lingual Movement: Unable to Perform (dry) Lingual Speed of Movement: Reduced Lingual Movement Strgth Against Opposition: Reduced Laryngeal Elevation: Impaired Laryngeal Movement: Reduced Excursion, Labored,delay initiation, Reduced Velocity Needs Assistance: Yes Rate of Intake: Slow/Holding Bolus Size: Small Labial Seal: Impaired Bilaterally Oral Prep Time: Increased A-P Transit: Impaired Pocketing: Present Bilaterally Timing of Swallow: Delayed Coughing/Throat Clear: Yes (nectar thick liquid) Recommendations - Speech Evaluation, Impression/Plan Impression: Advanced dementia, arousable, oral dryness, stasis of puree with impaired naya-pharyngeal transfer. Opened mouth to accept sip of lquid from cup, with drooling and impaired oral control. Very delayed swallow onset, requiring multiple verbal cues to "swallow" to elicit a delayed weak swallow. Intermittent throat clearing, wet cough, weak and unprotective, c/w aspiration. Pt is DNR/DNI/and does not want TF, per [employer] MOTHER. Pt pending d/;c home with hospice. High risk of aspiration/dehydration/malnutrition in this 89 yo with advanced Dementia. Pt's son educated on the results of my assessment. Pt will be most comfortable if given minimal PO trials. If fed, honey thick liquid, single sips, tell pt to swallow multiple times, until reflex is triggered. Hold po if coughing, congestion, comfort care. - Disposition Discharge to: Home with Assist (hospice) - Dysphagia Impressions/Plan Swallowing Skills: Impaired Dysphagia Impressions: Moderate Impairment, Severe Impairment, Suspect Aspiration *Silent aspiration: cannot be R/O at bedside Dysphagia Treatment Plan: Small Bites, Chin Tuck/Down, Facilitative Feeding, Safe Rate, 1/2 tsp. at a time, Elevate HOB during feed - Recommendations Diet Consistency: Dysphagia Pureed Medication Administration: Crushed with applesauce Liquids: Honey Thick
[2020-03-22] MEDS: OLANZapine 5 MG TABLET PO SCH (21:06)
[2020-03-23] MEDS: OLANZapine 2.5 MG TABLET PO SCH (06:33)
[2020-03-23 08:15] LABS: HEMATOCRIT 42.9 % (35.4-49); HEMOGLOBIN 14.1 GM/dl (11.7-16.9); MCH 27.9 pg (25.7-33.7); MCHC 32.8 g/dl (32.0-35.9); MEAN CELL VOLUME 85.1 fl (80-96); MEAN PLT VOLUME 9.3 fl (7.5-11.1); PLATELET COUNT 275 K/MM3 (134-434); RBC 5.05 M/mm3 (4.00-5.60); RDW 15.1 % (11.9-15.9); WHITE BLOOD COUNT 8.2 K/mm3 (4.0-10.8)
[2020-03-23 08:21] LABS: ALBUMIN 2.7 g/dl (3.4-5.0); BILIRUBIN,TOTAL 0.8 mg/dl (0.2-1); CALCIUM 8.8 mg/dl (8.5-10); CREATININE 1.3 mg/dl (0.55-1.3); MAGNESIUM 1.9 mg/dL (1.8-2.4); POTASSIUM 3.5 mmol/L (3.5-5.1); TOT PROT 5.8 g/dl (6.4-8.2)
--- NOTE | 2020-03-23 08:44 | PN ---
Physical Exam: SUBJECTIVE: Patient seen and examined at bedside, appears weak/ lethargic. OBJECTIVE: Vital Signs Period Temp Pulse Resp BP Sys/Yun Pulse Ox Last 24 Hr 98.5 F-100.4 F 76-105 19-20 106-137/60-97 95-97 GENERAL: The patient is alert,awake,remains confused, not in any kind of distress LUNGS: BS diminished, no wheezes, no crackles, no accessory muscle use. HEART: Regular rate and rhythm, S1, S2 without murmur, rub or gallop. ABDOMEN: Soft, nontender, nondistended, normoactive bowel sounds, no guarding, no rebound, no hepatosplenomegaly, no masses. EXTREMITIES: 2+ pulses, warm, well-perfused, no edema. PSYCH: restless at times SKIN: Warm, dry, RLE abrasion intact with dsg Laboratory Results - last 24 hr 03/23/20 03/23/20 07:35 07:35 WBC 8.2 RBC 5.05 Hgb 14.1 Hct 42.9 MCV 85.1 MCH 27.9 MCHC 32.8 RDW 15.1 Plt Count 275 MPV 9.3 Sodium 146 H Potassium 3.5 Chloride 116 H Carbon Dioxide 19 L Anion Gap 11 BUN 24.0 H Creatinine 1.3 Est GFR (CKD-EPI)AfAm 56.46 Est GFR (CKD-EPI)NonAf 48.72 Random Glucose 118 H Calcium 8.8 Magnesium 1.9 Total Bilirubin 0.8 AST 74 H ALT 49 Alkaline Phosphatase 61 Total Protein 5.8 L Albumin 2.7 L Active Medications Generic Name Dose Route Start Last Admin Trade Name Freq PRN Reason Stop Dose Admin Albuterol Sulfate 1 amp 03/21/20 22:47 03/22/20 10:00 Ventolin 0.083% Nebulizer Soln - NEB 1 amp Q6H PRN Administration SHORT OF BREATH/WHEEZING Azithromycin 250 mg 03/23/20 10:30 Zithromax - PO DAILY@1030 [place] Heparin Sodium (Porcine) 5,000 unit 03/18/20 10:00 03/22/20 21:06 Heparin - SQ 5,000 unit BID [place] Administration Sodium Chloride 1,000 mls @ 83 mls/hr 03/18/20 12:45 03/21/20 11:59 Normal Saline - IV 83 mls/hr ASDIR [place] Administration Multivitamins/Minerals/Vitamin C 1 tab 03/20/20 10:00 03/22/20 09:21 Tab-A-Vit - PO 1 tab DAILY [place] Administration Olanzapine 5 mg 03/20/20 14:16 03/22/20 21:06 Zyprexa - PO 5 mg HS [place] Administration Olanzapine 2.5 mg 03/21/20 07:00 03/23/20 06:33 Zyprexa - PO 2.5 mg AM [place] Administration * Imaging Head CT: no acute intracranial process CTAP: Possible mild diverticulitis, no other acute intra-abdominal pathology Chest X-ray: Report Reviewed (CXR 03/21/2020 Impression: Large heart. Questionable retrocardiac atelectasis or infiltrate. Incomplete visualization right base due to hand artifact. Reported By: Shantanu Guerrero MD 03/21/20 [id number]) X-ray: atelectatic or infiltrate resolved ASSESSMENT/PLAN: 89-year-old male with a history of BPH, CAD s/p stents, [place] (2013), HTN, and Alzheimer's dementia,wh ho presents to the ED via EMS from home with wdiarrhea and lethargy.Admitted for Diverticulitis, RASHEL. Pollo Lyle MD [Primary Care Provider] - * Diverticulitis/Diarrhea- resolved -s/p ceftriaxone and flagyl -completed - leukocytosis normalized - afebrile - c-DIFF RULED OUT - stool studies negative *Dyspnea- likely due to pneumonia / atelectasis -on Zithromax - ID following -PRN nebs -Supplemental Oxygen PRN -repeat CXR today improved since yesterday -Chest PT BID OOB to chair with PT if pt able to tolerate * RASHEL - resolved *Weakness -fall precautions -bed alarm - Pt is not appropriate for PT due to his physical status - plan Home hospice * HX of CAD, no active disease - On BB - not on ASA due to fall risk * BPH - Flomax *Alzheimer's dementia psy consult done, rec rec Zyprexa 2.5mg in AM and 5mg at HS - will hold off AM dose Zyprexa as per daughter request -on Ativan PRN at HS at home, will cont -Evaluated by Palliative care consult -SW to set up home hospice. -aspiration precautions -Swallowing eval done , rec dysphagia pureed diet *Code status: DNR/DNI updated with daughter PER DAUGHTER PT LIKES TO BE CALLED JO-ANN Dispo: Family agreed for Home Hospice, arranging home equipments, requires home O2, discharge on Wednesday, once home set up completed. Out pt home hospice visit. Visit type - Emergency Visit Emergency Visit: Yes ED Registration Date: 03/18/20 Care time: The patient presented to the Emergency Department on the above date and was hospitalized for further evaluation of their emergent condition. - New Patient This patient is new to me today: Yes Date on this admission: 03/24/20 - Critical Care Critical Care patient: No - Medication Review Med list reviewed for High Risk Meds patients 65 and older: Yes
[2020-03-23] MEDS: LORazepam 2 MG/ML SDV VIAL IVPUSH PRN (10:30)
[2020-03-23] MEDS: TAMSULOSIN HCL 0.4 MG CAP PO SCH (12:46)
[2020-03-23] MEDS: HEPARIN NA (PORCINE) 5,000 UNITS/ML 1ML VIAL SQ SCH ×2 (12:46→22:09)
[2020-03-23] MEDS: MULTIVITAMINS (DAILY MVI) TABLET (FP) PO SCH (12:47)
[2020-03-23] MEDS: AZITHROMYCIN 250 MG TABLET PO SCH (12:47)
[2020-03-23] MEDS: metoPROLOL SUCCINATE 25 MG TAB.SR.24H (FP) PO SCH (12:47)
--- NOTE | 2020-03-23 13:29 | PN ---
Progress Note, Physician - Current Medication List Current Medications: Active Medications Albuterol Sulfate (Ventolin 0.083% Nebulizer Soln -) 1 amp NEB Q6H PRN PRN Reason: SHORT OF BREATH/WHEEZING Last Admin: 03/22/20 10:00 Dose: 1 amp Documented by: Azithromycin (Zithromax -) 250 mg PO DAILY@1030 [facility] Last Admin: 03/23/20 12:47 Dose: Not Given Documented by: Heparin Sodium (Porcine) (Heparin -) 5,000 unit SQ BID [facility] Last Admin: 03/23/20 12:46 Dose: 5,000 unit Documented by: Sodium Chloride (Normal Saline -) 1,000 mls @ 83 mls/hr IV ASDIR [facility] Last Admin: 03/21/20 11:59 Dose: 83 mls/hr Documented by: Lorazepam (Ativan Injection -) 0.5 mg IVPUSH BID PRN PRN Reason: ANXIETY Metoprolol Succinate (Toprol Xl -) 25 mg PO DAILY [facility] Last Admin: 03/23/20 12:47 Dose: Not Given Documented by: Multivitamins/Minerals/Vitamin C (Tab-A-Vit -) 1 tab PO DAILY [facility] Last Admin: 03/23/20 12:47 Dose: Not Given Documented by: Olanzapine (Zyprexa -) 5 mg PO HS [facility] Last Admin: 03/22/20 21:06 Dose: 5 mg Documented by: Tamsulosin HCl (Flomax -) 0.4 mg PO DAILY [facility] Last Admin: 03/23/20 12:46 Dose: Not Given Documented by: - Objective Vital Signs: Vital Signs Temperature 99.3 F 03/23/20 06:00 Pulse Rate 84 03/23/20 06:00 Respiratory Rate 20 03/23/20 06:00 Blood Pressure 123/97 03/23/20 06:00 O2 Sat by Pulse Oximetry (%) 95 03/23/20 07:32 Labs: CBC, BMP 03/23/20 07:35 03/23/20 07:35 INR, PTT INR 1.14 (0.82-1.09) 03/17/20 21:24
[2020-03-23] MEDS: OLANZapine 5 MG TABLET PO SCH (22:08)
--- NOTE | 2020-03-24 08:40 | PN ---
Physical Exam: SUBJECTIVE: Patient seen and examined at bedside, status remains non-verbal, not taking any PO intake. OBJECTIVE: Vital Signs Period Temp Pulse Resp BP Sys/Yun Pulse Ox Last 24 Hr 97.8 F-99.2 F 76-99 18-19 108-131/69-79 92-97 GENERAL: The patient is alert,awake,remains confused, non-verbal,not in any kind of acute distress LUNGS: BS diminished, no wheezes, no crackles, no accessory muscle use. HEART: Regular rate and rhythm, S1, S2 without murmur, rub or gallop. ABDOMEN: Soft, nontender, nondistended, normoactive bowel sounds, no guarding, no rebound, no hepatosplenomegaly, no masses. EXTREMITIES: 2+ pulses, warm, well-perfused, no edema. PSYCH: restless at times SKIN: Warm, dry, RLE abrasion , intact with dsg Active Medications Generic Name Dose Route Start Last Admin Trade Name Freq PRN Reason Stop Dose Admin Albuterol Sulfate 1 amp 03/21/20 22:47 03/22/20 10:00 Ventolin 0.083% Nebulizer Soln - NEB 1 amp Q6H PRN Administration SHORT OF BREATH/WHEEZING Azithromycin 250 mg 03/23/20 10:30 03/23/20 12:47 Zithromax - PO Not Given DAILY@1030 [place] Heparin Sodium (Porcine) 5,000 unit 03/18/20 10:00 03/23/20 22:09 Heparin - SQ 5,000 unit BID [place] Administration Sodium Chloride 1,000 mls @ 83 mls/hr 03/18/20 12:45 03/21/20 11:59 Normal Saline - IV 83 mls/hr ASDIR [place] Administration Lorazepam 0.5 mg 03/23/20 10:10 03/23/20 10:30 Ativan Injection - IVPUSH 0.5 mg BID PRN Administration ANXIETY Metoprolol Succinate 25 mg 03/23/20 10:00 03/23/20 12:47 Toprol Xl - PO Not Given DAILY [place] Multivitamins/Minerals/Vitamin C 1 tab 03/20/20 10:00 03/23/20 12:47 Tab-A-Vit - PO Not Given DAILY [place] Olanzapine 5 mg 03/20/20 14:16 03/23/20 22:08 Zyprexa - PO Not Given HS [place] Tamsulosin HCl 0.4 mg 03/23/20 10:00 03/23/20 12:46 Flomax - PO Not Given DAILY [place] *Imaging Head CT: no acute intracranial process CTAP: Possible mild diverticulitis, no other acute intra-abdominal pathology Chest X-ray: Report Reviewed (CXR 03/21/2020 Impression: Large heart. Questionable retrocardiac atelectasis or infiltrate. Incomplete visualization right base due to hand artifact. Reported By: Shantanu Guerrero MD 03/21/20 1154) X-ray: atelectatic or infiltrate resolved Microbiology 03/18/20 07:50 Blood - Peripheral Venous Blood Culture - Final NO GROWTH AFTER 5 DAYS INCUBATION 03/18/20 07:40 Blood - Peripheral Venous Blood Culture - Final NO GROWTH AFTER 5 DAYS INCUBATION 03/18/20 09:30 Stool Salmonella/Shigella Culture - Final NO GROWTH OF SALMONELLA OR SHIGELLA SPECIES OBTAINED 03/18/20 09:30 Stool Campylobacter Culture - Final NO GROWTH OF CAMPYLOBACTER SPECIES OBTAINED 03/18/20 09:30 Stool Yersinia Culture - Final NO GROWTH OF YERSINIA SPECIES OBTAINED 03/18/20 09:30 Stool Vibrio Culture - Final NO GROWTH OF VIBRIO SPECIES OBTAINED 03/18/20 09:30 Stool Escherichia coli 0157 Culture - Final NO GROWTH OF E COLI 0157 OBTAINED 03/17/20 22:08 Urine - Urine - Catheterized Urine Culture - Final NO GROWTH OBTAINED 03/18/20 09:30 Stool Clostridioides difficile Antigen - Final 03/18/20 09:30 Stool Clostridioides difficile Toxin Assay - Final ASSESSMENT/PLAN: 89-year-old male with a history of BPH, CAD s/p stents, [place] (2013), HTN, and Alzheimer's dementia, ho presents to the ED via EMS from home with diarrhea and lethargy.Admitted for Diverticulitis, RASHEL. Pollo Lyle MD [Primary Care Provider] * Diverticulitis /Diarrhea- resolved -s/p ceftriaxone and flagyl -completed - leukocytosis normalized - afebrile - c-DIFF RULED OUT - stool studies negative *Dyspnea- likely due to pneumonia / atelectasis -on Zithromax -PRN nebs -Supplemental Oxygen PRN -repeat CXR today improved -Chest PT BID OOB to chair with PT if pt able to tolerate * RASHEL - resolved *Weakness -fall precautions -bed alarm - Pt is not appropriate for PT due to his physical status - plan Home hospice * HX of CAD, no active disease - On BB, will hold, NPO - not on ASA due to fall risk * BPH - will hold Flomax - NPO *Alzheimer's dementia psy consult done, rec rec Zyprexa 2.5mg in AM and 5mg at HS- will hold due to NPO - will hold off AM dose Zyprexa as per pt's daughter request -on Ativan PRN at HS at home, will cont -Evaluated by Palliative care consult -SW to set up home hospice. -aspiration precautions -Swallowing eval done , rec dysphagia pureed diet *Code status: DNR/DNI Family updated again today. PER DAUGHTER PT LIKES TO BE CALLED JO-ANN Dispo: Family agreed for Home Hospice, arranging home equipments, requires home O2, discharge on Wednesday, once home set up completed. Out pt home hospice visit. will continue on comfort measures Visit type - Emergency Visit Emergency Visit: Yes ED Registration Date: 03/18/20 Care time: The patient presented to the Emergency Department on the above date and was hospitalized for further evaluation of their emergent condition. - New Patient This patient is new to me today: No - Critical Care Critical Care patient: No - Discharge Referral Referred to [facility] Med P.C.: No - Medication Review Med list reviewed for High Risk Meds patients 65 and older: Yes
[2020-03-24] MEDS ORDERED: SODIUM CHLORIDE 1,000 ML IV SCH (09:00)
[2020-03-24] MEDS: SODIUM CHLORIDE 1,000 ML IV SCH (09:36)
[2020-03-24] MEDS: MULTIVITAMINS (DAILY MVI) TABLET (FP) PO SCH (09:37)
[2020-03-24] MEDS: HEPARIN NA (PORCINE) 5,000 UNITS/ML 1ML VIAL SQ SCH (09:37)
[2020-03-24] MEDS: TAMSULOSIN HCL 0.4 MG CAP PO SCH (09:37)
[2020-03-24] MEDS: metoPROLOL SUCCINATE 25 MG TAB.SR.24H (FP) PO SCH (09:38)
[2020-03-24] MEDS: AZITHROMYCIN 250 MG TABLET PO SCH (09:38)
[2020-03-24] MEDS: ACETAMINOPHEN 650 MG SUPP.RECT PR PRN (19:42)
[2020-03-24] MEDS: LORazepam 2 MG/ML SDV VIAL IVPUSH PRN (22:49)
[2020-03-25] MEDS: ACETAMINOPHEN 650 MG SUPP.RECT PR PRN ×3 (03:36→17:30)
[2020-03-25] MEDS: LORazepam 2 MG/ML SDV VIAL IVPUSH PRN (05:45)
[2020-03-25] MEDS ORDERED: FUROSEMIDE 40 MG/4 ML INJECTABLE VIAL IVPUSH ONE (09:41)
[2020-03-25] MEDS ORDERED: MORPHINE SULFATE 2 MG/ML VIAL IVPUSH PRN ×2 (09:44→12:00)
[2020-03-25] MEDS ORDERED: SCOPOLAMINE HYDROBROMIDE 1 PATCH PATCH.TD72 TD SCH (10:00)
--- NOTE | 2020-03-25 11:17 | PN ---
Physical Exam: SUBJECTIVE: Patient seen and examined at bedside. Pt asleep, unresponsive. OBJECTIVE: This is an 89-year-old male with a history of BPH, CAD s/p stents, NV (2013), HTN, and Alzheimer's dementia who presented to the ED via EMS from home yesterday with with diarrhea and lethargy. History was obtained from the family ( and daughter) at that time, as the patient is unable to participate. He has reportedly been having nonbloody, brownish, foul-smelling diarrhea increased lethargy and decreased responsiveness. The family reported the patient has dementia at baseline, however, the past few days hes been more lethargic, unresponsive, and not like himself. The family also reported increased leg swelling in the past few days. Patient was found to have mild diverticulitis on CT scan and completed course of IV antibiotics. Pt has been continuously lethargic, failure to thrive, not eating. Patient has overall poor prognosis, family agreed to home hospice. Pt unable to transferred home yesterday d/t agitation and SOB. Vital Signs Period Temp Pulse Resp BP Sys/Yun Pulse Ox Last 24 Hr 98.3 F-102.2 F 64-112 19-21 106-134/36-91 90-94 GENERAL: The patient is asleep, unresponsive, in mild acute distress. HEAD: Normal with no signs of trauma. EYES: PERRL, extraocular movements intact, sclera anicteric, conjunctiva clear. No ptosis. ENT: Ears normal, nares patent, oropharynx clear without exudates, moist mucous membranes. NECK: Trachea midline, full range of motion, supple. LUNGS: + congestion upper BL, tachypneic, mouth breathing, on nasal cannula HEART: Tachycardic, regular rhythm, S1, S2 without murmur, rub or gallop. ABDOMEN: Soft, nontender, nondistended, normoactive bowel sounds, no guarding, no rebound, no hepatosplenomegaly, no masses. EXTREMITIES: 2+ pulses, warm, well-perfused, no edema. NEUROLOGICAL: Pt unresponsive, asleep, nonverbal, gait not observed. SKIN: Hot, dry, normal turgor, no rashes or lesions noted Active Medications Generic Name Dose Route Start Last Admin Trade Name Freq PRN Reason Stop Dose Admin Acetaminophen 650 mg 03/24/20 08:58 03/25/20 03:36 Tylenol Suppository - [place] 650 mg Q4H PRN Administration FEVER Albuterol Sulfate 1 amp 03/21/20 22:47 03/22/20 10:00 Ventolin 0.083% Nebulizer Soln - NEB 1 amp Q6H PRN Administration SHORT OF BREATH/WHEEZING Azithromycin 250 mg 03/23/20 10:30 03/24/20 09:38 Zithromax - PO Not Given DAILY@1030 [place] Lorazepam 0.5 mg 03/23/20 10:10 03/25/20 05:45 Ativan Injection - IVPUSH 0.5 mg BID PRN Administration ANXIETY Morphine Sulfate 0.5 mg 03/25/20 09:44 Morphine Sulfate IVPUSH Q6H PRN Respiratory Distress Scopolamine HBr 1 patch 03/25/20 10:00 Transderm-Scop - TD Q72H [place] ASSESSMENT/PLAN: see Problem List Problem List - Problems (1) Acute kidney injury Assessment/Plan: Resolved Code(s): N17.9 - ACUTE KIDNEY FAILURE, UNSPECIFIED (2) Altered mental status Assessment/Plan: Ativan PRN for agitation Code(s): R41.82 - ALTERED MENTAL STATUS, UNSPECIFIED (3) Alzheimer's dementia Assessment/Plan: seen by psych started on zyprexa BID, however pt currently unable to take PO - on hold Code(s): G30.9 - ALZHEIMER'S DISEASE, UNSPECIFIED; F02.80 - DEMENTIA IN OTH DISEASES CLASSD ELSWHR W/O BEHAVRL DISTURB (4) CAD (coronary artery disease) Code(s): I25.10 - ATHSCL HEART DISEASE OF [place] CORONARY ARTERY W/O ANG PCTRS (5) Diverticulitis Assessment/Plan: completed course of IV antibiotics diarrhea resolved Code(s): K57.92 - DVTRCLI OF INTEST, PART UNSP, W/O PERF OR ABSCESS W/O BLEED (6) Pneumonia Assessment/Plan: pt had fever this morning continue tylenol suppository continue IV azithromycin place on venti mask 40% Code(s): J18.9 - PNEUMONIA, UNSPECIFIED ORGANISM (7) Congestion of upper respiratory tract Assessment/Plan: Lasix IVP 40mg x1 given Scopolamine patch added Code(s): J98.8 - OTHER SPECIFIED RESPIRATORY DISORDERS (8) Urinary retention Code(s): R33.9 - RETENTION OF URINE, UNSPECIFIED (9) End of life care Assessment/Plan: Spoke with HCP Molly Gallagher at the bedside. Discussed end of life goals of care Family wishes to have pt go to inpatient hospice at [facility] Morphine Drip started for respiratory distress/comfort care Scopolamine Patch added Ativan increased frequency to q6h prn for agitation Applied Venti Mask 40% Code(s): Z51.5 - ENCOUNTER FOR PALLIATIVE CARE Visit type - Emergency Visit Emergency Visit: Yes ED Registration Date: 03/18/20 Care time: The patient presented to the Emergency Department on the above date and was hospitalized for further evaluation of their emergent condition. - New Patient This patient is new to me today: Yes Date on this admission: 03/25/20 - Critical Care Critical Care patient: No - Discharge Referral Referred to [facility] Med P.C.: No - Medication Review Med list reviewed for High Risk Meds patients 65 and older: Yes
[2020-03-25] MEDS: AZITHROMYCIN 250 MG TABLET PO SCH (11:55)
[2020-03-25] MEDS ORDERED: LORazepam 2 MG/ML SDV VIAL IVPUSH PRN (12:00)
--- NOTE | 2020-03-25 12:31 | PN ---
Progress Note, Physician - Current Medication List Current Medications: Active Medications Acetaminophen (Tylenol Suppository -) 650 mg OR Q4H PRN PRN Reason: FEVER Last Admin: 03/25/20 11:58 Dose: 650 mg Documented by: Albuterol Sulfate (Ventolin 0.083% Nebulizer Soln -) 1 amp NEB Q6H PRN PRN Reason: SHORT OF BREATH/WHEEZING Last Admin: 03/22/20 10:00 Dose: 1 amp Documented by: Azithromycin (Zithromax -) 250 mg PO DAILY@1030 [facility] Last Admin: 03/25/20 11:55 Dose: Not Given Documented by: Lorazepam (Ativan Injection -) 0.5 mg IVPUSH Q6H-IV PRN PRN Reason: ANXIETY Morphine Sulfate (Morphine Sulfate) 1 mg IVPUSH Q4H PRN PRN Reason: Respiratory Distress Scopolamine HBr (Transderm-Scop -) 1 patch TD Q72H [facility] Last Admin: 03/25/20 10:05 Dose: 1 patch Documented by: - Objective Vital Signs: Vital Signs Temperature 100.6 F H 03/25/20 09:51 Pulse Rate 65 03/25/20 09:51 Respiratory Rate 21 H 03/25/20 09:51 Blood Pressure 121/77 03/25/20 09:51 O2 Sat by Pulse Oximetry (%) 90 L 03/25/20 09:51 Labs: CBC, BMP 03/23/20 07:35 03/23/20 07:35 INR, PTT INR 1.14 (0.82-1.09) 03/17/20 21:24
[2020-03-25] MEDS ORDERED: MORPHINE SULFATE/0.9% NACL/PF 100 MG/100 ML BAG IVPB SCH (13:45)
[2020-03-26] MEDS ORDERED: INSULIN SLIDING SCALE (NOVOLOG) 1 VIAL SQ ONE (06:39)
--- NOTE | 2020-03-26 08:50 | PN ---
Physical Exam: SUBJECTIVE: Patient seen and examined, overall appears comfortable. non verbal. patient is end of life care per family wishes. plan was for him to go to [place] for hospice. OBJECTIVE: Patient is an 89-year-old male with a history of BPH, CAD s/p stents, ID (2013), HTN, and Alzheimer's dementia who presented to the ED via EMS from home with diarrhea and lethargy. History was obtained from the family ( and daughter) at that time, as the patient is unable to participate. He has reportedly been having nonbloody, brownish, foul-smelling diarrhea increased lethargy and decreased responsiveness. The family reported the patient has dementia at baseline, however, the past few days hes been more lethargic, unresponsive, and not like himself. The family also reported increased leg swelling in the past few days. Patient was found to have mild diverticulitis on CT scan and completed course of IV antibiotics. Pt has been continuously lethargic, failure to thrive, not eating. Patient has overall poor prognosis, family agreed to home hospice. Pt unable to be transferred home on 03/24 d/t agitation and SOB. Period Temp Pulse Resp BP Sys/Yun Pulse Ox Last 24 Hr 100.6 F-103.9 F 65-121 20-32 87-136/46-77 72-92 GENERAL: The patient is asleep, unresponsive. appears comfortable on venti mas k. febrile overnight. agonal breathing w/o apnea. HEAD: Normal with no signs of trauma. EYES: PERRL, extraocular movements intact, sclera anicteric, conjunctiva clear. No ptosis. ENT: Ears normal, nares patent, oropharynx clear without exudates, moist mucous membranes. NECK: Trachea midline, full range of motion, supple. LUNGS: + congestion upper BL, tachypneic, on venti mask HEART: Tachycardic, regular rhythm, S1, S2 without murmur, rub or gallop. ABDOMEN: Soft, nontender, nondistended, normoactive bowel sounds, no guarding, no rebound, no hepatosplenomegaly, no masses. EXTREMITIES: no edema. NEUROLOGICAL: Pt unresponsive, asleep, nonverbal, gait not observed. SKIN: Hot, dry, normal turgor, no rashes or lesions noted Active Medications Generic Name Dose Route Start Last Admin Trade Name Freq PRN Reason Stop Dose Admin Acetaminophen 650 mg 03/24/20 08:58 03/25/20 17:30 Tylenol Suppository - [place] 650 mg Q4H PRN Administration FEVER Acetaminophen 1,000 mg 03/26/20 09:00 Ofirmev Injection - IVPB 03/26/20 09:01 ONCE ONE Albuterol Sulfate 1 amp 03/21/20 22:47 03/22/20 10:00 Ventolin 0.083% Nebulizer Soln - NEB 1 amp Q6H PRN Administration SHORT OF BREATH/WHEEZING Morphine Sulfate 100 mg in 100 mls @ 1 mls/hr 03/25/20 13:45 03/25/20 15:31 Morphine 100mg/100ml-0.9% Nacl IVPB 1 mg/hr TITR [place] 1 mls/hr Administration Protocol 1 MG/HR Lorazepam 0.5 mg 03/25/20 12:00 03/25/20 12:58 Ativan Injection - IVPUSH 0.5 mg Q6H-IV PRN Administration ANXIETY Scopolamine HBr 1 patch 03/25/20 10:00 03/25/20 10:05 Transderm-Scop - TD 1 patch Q72H [place] Administration ASSESSMENT/PLAN: Problem List - Problems (1) Acute kidney injury Assessment/Plan: Resolved no further lab draws as patient is comfort and end of life care Code(s): N17.9 - ACUTE KIDNEY FAILURE, UNSPECIFIED (2) Altered mental status Assessment/Plan: Ativan PRN for agitation, appears comfortable overall but not sedated on morphine drip for comfort Code(s): R41.82 - ALTERED MENTAL STATUS, UNSPECIFIED (3) Alzheimer's dementia Assessment/Plan: seen by psych started on zyprexa BID, however pt currently unable to take PO - on hold no behavioral issues. ativan prn Code(s): G30.9 - ALZHEIMER'S DISEASE, UNSPECIFIED; F02.80 - DEMENTIA IN OTH DISEASES CLASSD ELSWHR W/O BEHAVRL DISTURB (4) CAD (coronary artery disease) Code(s): I25.10 - ATHSCL HEART DISEASE OF [place] CORONARY ARTERY W/O ANG PCTRS (5) Diverticulitis Assessment/Plan: completed course of IV antibiotics diarrhea resolved Code(s): K57.92 - DVTRCLI OF INTEST, PART UNSP, W/O PERF OR ABSCESS W/O BLEED (6) Pneumonia Assessment/Plan: pt continues with high fevers this morning continue tylenol suppository continue IV azithromycin on venti mask 40% Code(s): J18.9 - PNEUMONIA, UNSPECIFIED ORGANISM (7) Congestion of upper respiratory tract Assessment/Plan: Lasix IVP 40mg x1 given on 03/25 Scopolamine patch added Code(s): J98.8 - OTHER SPECIFIED RESPIRATORY DISORDERS (8) Urinary retention Assessment/Plan: monitor intake and output Code(s): R33.9 - RETENTION OF URINE, UNSPECIFIED (9) End of life care Assessment/Plan: Family wishes to have pt go to inpatient hospice at [place] Morphine Drip started for respiratory distress/comfort care Scopolamine Patch added Ativan increased frequency to q6h prn for agitation Applied Venti Mask 40% SW aware regarding family wishes for [place] Code(s): Z51.5 - ENCOUNTER FOR PALLIATIVE CARE Visit type - Emergency Visit Emergency Visit: Yes ED Registration Date: 03/18/20 Care time: The patient presented to the Emergency Department on the above date and was hospitalized for further evaluation of their emergent condition. - New Patient This patient is new to me today: No - Critical Care Critical Care patient: No - Discharge Referral Referred to [facility] Med P.C.: No - Medication Review Med list reviewed for High Risk Meds patients 65 and older: Yes
[2020-03-26] MEDS ORDERED: ACETAMINOPHEN 1000 MG/100 ML VIAL (NON FORMULARY) IVPB ONE (09:00)
[2020-03-26 09:36] VITALS: BP 105/46; PULSE 111; TEMP 98.6
--- NOTE | 2020-03-26 10:02 | HOSP ---
Physical Examination Vital Signs: Vital Signs Temperature 98.6 F 03/26/20 09:34 Pulse Rate 111 H 03/26/20 09:34 Respiratory Rate 20 03/26/20 09:34 Blood Pressure 105/46 L 03/26/20 09:34 O2 Sat by Pulse Oximetry (%) 90 L 03/26/20 09:34 Labs: CBC, BMP 03/23/20 07:35 03/23/20 07:35 Hospitalist Encounter Assessment: NOTE: I saw patient at the bedside per primary RN request as patient is unresponsive. patient is a dnr/dni and on a morphine drip for end of life care/comfort care On exam noted to be unresponsive to verbal or tactile stimuli Pupils fixed and dilated No breath sounds auscultated over either lung field No carotid pulses were palpable No heart sounds were auscultated over entire precordium patient pronounced: Date March 26 2020 Time: 0955 a.m. Daughter at bedside, condolences offered Primary care doctor Pollo Nuñez MD to be informed Post mortem care per primary RN ortiz camacho [employer] [phone]
--- NOTE | 2020-03-26 10:14 | DS ---
Physical Exam: SUBJECTIVE: Patient seen and examined OBJECTIVE: Patient pronounced today 03/26 at 09:55 a.m. see note Vital Signs Period Temp Pulse Resp BP Sys/Yun Pulse Ox Last 24 Hr 98.6 F-103.9 F 86-121 20-32 87-136/46-63 72-92 PHYSICAL EXAM GENERAL:unresponsive HEAD: Normal with no signs of trauma. EYES: fixed and dilated LUNGS: no breath sounds auscultated HEART: no heart sounds auscultated SKIN: mottled LABS HOSPITAL COURSE: Date of Admission:03/18/20 Date of Discharge: 03/26/20 Minutes to complete discharge: 40 Discharge Summary Problems reviewed: Yes Reason For Visit: diarrhea/ lethargy Current Active Problems Acute kidney injury (Acute) Altered mental status (Acute) Alzheimer's dementia (Acute) CAD (coronary artery disease) (Acute) Congestion of upper respiratory tract (Acute) Diarrhea (Acute) Diverticulitis (Acute) Dyspnea (Acute) End of life care (Acute) Hospital Course: 89-year-old male with a history of BPH, CAD s/p stents, ID (2013), HTN, and Alzheimer's dementia who presented to the ED via EMS from home yesterday with with diarrhea and lethargy. History was obtained from the family ( and daughter) at that time, as the patient is unable to participate. He has reportedly been having nonbloody, brownish, foul-smelling diarrhea increased lethargy and decreased responsiveness. The family reported the patient has dementia at baseline, however, the past few days hes been more lethargic, unresponsive, and not like himself. The family also reported increased leg swelling in the past few days. The daughter reports the patient is urinating fine and tolerating PO without nausea or vomiting. ER course was notable for: (1) Serum Cr 1.6 (baseline from prior admits appears to be about 1.2) (2) Head CT: no acute intracranial process (3) CTAP: Possible mild diverticulitis, no other acute intra-abdominal pathology On admission, Mr. Nails was rehydrated with IVF resulting in normalization of renal function. He was also started on antibiotics, however, his stool/blood and urine cultures were all negative, COVID screen also negative. Pt required complete care during hospital stay and was evaluated by psych due to restless and confusion in the setting of advanced alzheimers dementia. Zyprexa BID initiated. On 03/21, pt deemed stable for discharge, antiobiotics discontinued. Family opts to continue care at home and medical supplies ordered to assist family with caring for patient at home. Health Concerns: PATIENT EDUCATION Gastroenteritis is irritation and inflammation of the stomach and intestines. It is most frequently caused by viral or bacterial infection. Symptoms of gastroenteritis include nausea, vomiting, diarrhea, and abdominal pain. Usually, treatment is aimed at preventing dehydration. Certain bacterial causes are treated with antibiotics. Gastroenteritis typically lasts from a few days to a week or more, depending on the cause. Your stomach produces acids to break down food for digestion. Your stomach processes the food you eat into a liquid form. The processed liquid travels from your stomach to your small intestine. The liquid solidifies as it moves through the large intestine, forming a stool. The stool is eliminated from your body when you have a bowel movement Causes There are several causes of gastroenteritis. It is most frequently caused by viral or bacterial infection. Viruses are found in contaminated food and water. Poor hand washing most commonly transmits viruses. Bacterial causes include travelers diarrhea, food poisoning, handling undercooked meat or poultry, and handling reptiles with the bacteria. Parasites, chemical toxins, and food intolerance can cause gastroenteritis. Parasites are found in contaminated drinking water or swimming pools. Chemical toxins are most frequently contained in seafood, certain medications, and metals including lead, mercury, and arsenic. Food allergies or lactose intolerance, the inability to digest milk or cheese products, can also cause gastroenteritis. Symptoms Common symptoms of gastroenteritis include nausea, vomiting, diarrhea, a low fever, and cramping or abdominal pain. You should call your doctor if you feel weak, dizzy, or experience serious symptoms. More serious symptoms include a swollen or painful abdomen, fever higher than 101, vomiting that lasts for more than 48 hours, bloody bowel movements, and dehydration. Extreme thirst, dry mouth, little urine production, and a lack of tears are signs of dehydration. You should have someone take you to a hospital emergency room if you are sleepy or unaware of your surroundings Prevention You can prevent the transmission gastroenteritis with good hand washing. Hands should be washed thoroughly after going to the bathroom and before handling antionette d. You should avoid contaminated food or water. Enzyme supplements are available to help digest foods with lactose. Additionally, there are many lactose-free products available on the market. http [email or web address] Plan of Treatment: Follow up with Dr[place] [address]. Appointment: Apr 03 2020 @ 2:30pm NEW MEDICATION Zyprexa has been sent to your pharmacy for black pickler Ativan 0.5mg 3 day supply sent to pharmacy. Goals: Follow up with PCP within 1 weeks of discharge. Hospital bed ordered to facilitate ease of care and comfort while residing at home. Condition: - Instructions Diet, Activity, Other Instructions: Mechanical soft diet Referrals: Pollo Lyle MD [Primary Care Provider] - Disposition: HOME - Home Medications Comprehensive Discharge Medication List: Ambulatory Orders Lisinopril [Prinivil -] 2.5 mg PO DAILY #0 tablet 02/15/17 Metoprolol Succinate 25 mg PO DAILY 02/15/17 Tamsulosin HCl [Flomax] 0.4 mg PO DAILY 05/15/19 LORazepam [Ativan] 0.5 mg PO HS 5 Days #5 tablet MDD 0.5mg 03/21/20 Multivitamins [Multivit ([facility] Formulary)] 1 tab PO DAILY tab 03/21/20 Olanzapine [Zyprexa -] 5 mg PO HS 30 Days #30 tablet 03/21/20 Problem List - Problems (1) Acute kidney injury Code(s): N17.9 - ACUTE KIDNEY FAILURE, UNSPECIFIED (2) Altered mental status Code(s): R41.82 - ALTERED MENTAL STATUS, UNSPECIFIED (3) Alzheimer's dementia Code(s): G30.9 - ALZHEIMER'S DISEASE, UNSPECIFIED; F02.80 - DEMENTIA IN OTH DISEASES CLASSD ELSWHR W/O BEHAVRL DISTURB (4) CAD (coronary artery disease) Code(s): I25.10 - ATHSCL HEART DISEASE OF [place] CORONARY ARTERY W/O ANG PCTRS (5) Diverticulitis Code(s): K57.92 - DVTRCLI OF INTEST, PART UNSP, W/O PERF OR ABSCESS W/O BLEED (6) Pneumonia Code(s): J18.9 - PNEUMONIA, UNSPECIFIED ORGANISM (7) Congestion of upper respiratory tract Code(s): J98.8 - OTHER SPECIFIED RESPIRATORY DISORDERS (8) Urinary retention Code(s): R33.9 - RETENTION OF URINE, UNSPECIFIED (9) End of life care Code(s): Z51.5 - ENCOUNTER FOR PALLIATIVE CARE This patient is new to me today: No Emergency Visit: Yes ED Registration Date: 03/18/20 Care time: The patient presented to the Emergency Department on the above date and was hospitalized for further evaluation of their emergent condition. Critical Care patient: No - Discharge Referral Referred to [facility] Med P.C.: No
== END 2020-03-26 09:55 | disposition expired | DRG 391 ==
LOC: FER 21:19 → FM/S 03-18 00:10 → UNDOADMIN 03-18 00:17 → FM/S 03-18 00:17
PROVIDERS: ADMIT Internal Medicine; ATTEND Nurse Practitioner Family
DX: K57.32 Diverticulitis of large intestine without perforation or abscess without bleeding (principal); G93.41 Metabolic encephalopathy; J18.9 Pneumonia, unspecified organism; N17.9 Acute kidney failure, unspecified; J98.11 Atelectasis; I25.10 Atherosclerotic heart disease of native coronary artery without angina pectoris; N40.0 Benign prostatic hyperplasia without lower urinary tract symptoms; I10 Essential (primary) hypertension; G30.9 Alzheimer's disease, unspecified; F02.80 Dementia in other diseases classified elsewhere, unspecified severity, without behavioral disturbance, psychotic disturbance, mood disturbance, and anxiety; I25.2 Old myocardial infarction; E78.00 Pure hypercholesterolemia, unspecified; R41.82 Altered mental status, unspecified; R26.81 Unsteadiness on feet; R06.00 Dyspnea, unspecified; R06.03 Acute respiratory distress; J98.8 Other specified respiratory disorders; R33.9 Retention of urine, unspecified; Z51.5 Encounter for palliative care; Z66 Do not resuscitate; Z95.5 Presence of coronary angioplasty implant and graft
CPT/HCPCS: 36415; 70450-TC; 71045-TC-FY; 74177-TC; 80048; 80053; 81003; 81015; 82150; 82607; 82746; 83605; 83690; 83735; 84100; 84443; 84484; 85025; 85027; 85610; 85730; 87040; 87045; 87046; 87086; 87324; 87449; 93005; 94640; 99285-25; J0131; J1644; U0003